=== PATIENT | male | born 1935 | race Caucasian/White ===

== ENCOUNTER 2016-12-16 22:43 | Inpatient (IN) | payer MEDICARE ==
[2016-12-16] MEDS ORDERED: SODIUM CHLORIDE 0.9% 1,000 ML IV STA (23:20)
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
[2016-12-16 23:48] LABS: Basophils % (A) 0 %; CH 30.3; CHCM 32.7; Eosinophils # (A) 0.3 k/uL (0-0.7); Eosinophils % (A) 4 %; HCT 40.7 % (39.0-53.0); HDW 2.35; HGB 13.2 gm/dL (13.0-17.5); Luc # (Auto) 0.17; Luc % (Auto) 2; Lymphocytes # (A) 2.3 k/uL (1.0-4.8); Lymphocytes % (A) 27 %; MCH 30.2 pg (25.0-35.0); MCHC 32.4 g/dL (31.0-37.0); MCV 93.2 fL (80.0-100.0); Mean Platelet Volume 6.6; Monocytes # (A) 0.6 k/uL (0-1.0); Monocytes % (A) 7 %; Neutrophils # (A) 5.4 k/uL (1.3-7.7); Neutrophils % (A) 61 %; RBC 4.37 m/uL (4.30-5.90); RDW 15.2 % (11.5-15.5); WBC 8.9 k/uL (3.8-10.6); WBC (Perox) 9.16
[2016-12-16 23:50] LABS: Amorphous Sediment,Urine Rare /hpf; Appearance,Urine Cloudy (Clear); Bacteria,Urine Occasional /hpf; Bilirubin,Urine Negative (Negative); Glucose,Urine (UA) Negative (Negative); Ketones,Urine Negative (Negative); Leukocyte Esterase,Urine Large (Negative); Nitrite,Urine Positive (Negative); PH, Urine 6.5 (5.0-8.0); Particle Count 9791; Protein,Urine Negative (Negative); RBC,Urine 2 /hpf (0-5); Specific Gravity,Urine 1.007 (1.001-1.035); Squamous Epithelial Cell,Urine <1 /hpf (0-4); UA Billing (MACRO vs. MICRO) MICRO; Urobilinogen,Urine <2.0 mg/dL (<2.0); WBC,Urine 7 /hpf (0-5)
[2016-12-16 23:56] LABS: INR 1.1 (<1.1); Partial Thromboplastin Time 25.3 sec (22.0-30.0); Prothrombin Time 10.8 sec (9.0-12.0)
[2016-12-17 00:02] LABS: ALT 30 U/L (21-72); AST 21 U/L (17-59); Alkaline Phosphatase 75 U/L (38-126); Anion Gap 9 mmol/L; Blood Urea Nitrogen 25 mg/dL (9-20); Calcium 9.8 mg/dL (8.4-10.2); Carbon Dioxide 24 mmol/L (22-30); Chloride 108 mmol/L (98-107); Glucose 94 mg/dL (74-99); Magnesium 2.1 mg/dL (1.6-2.3); Non-African American GFR(MDRD) >60 (>60 ml/min/1.73 sqM); Potassium 4.4 mmol/L (3.5-5.1); Sodium 141 mmol/L (137-145); Total Bilirubin 0.4 mg/dL (0.2-1.3); Total Protein 7.1 g/dL (6.3-8.2)
--- NOTE | 2016-12-17 00:12 | CT ---
EXAM: CT Head Without Intravenous Contrast CLINICAL HISTORY: Pain. Fall 2 days ago. TECHNIQUE: Axial computed tomography images of the head/brain without intravenous contrast. Coronal and sagittal reformations provided. DOSE INFORMATION: CTDI is 60.30 mGy and DLP is 1144.70 mGy-cm. This CT exam was performed using one or more of the following dose reduction techniques: automated exposure control, adjustment of the mA and/or kV according to patient size, and/or use of iterative reconstruction technique. COMPARISON: No relevant prior studies available. FINDINGS: Brain: No acute intracranial hemorrhage or evidence of acute territorial infarct. Atrophy and chronic small vessel ischemic disease. Chronic left superior cerebellar infarct. No mass effect or midline shift. Ventricles: Unremarkable for age. No ventriculomegaly. Bones/joints: No skull fracture. Soft tissues: Unremarkable. Sinuses: Areas of mild mucosal thickening involving the ethmoid sinuses. No air-fluid levels in the visualized paranasal sinuses. Mastoid air cells: Unremarkable as visualized. No mastoid effusion. IMPRESSION: 1. No intracranial hemorrhage, skull fracture, or other acute intracranial abnormality. 2. Atrophy and chronic small vessel ischemic disease. 3. Chronic infarct in the left superior cerebellar hemisphere.
[2016-12-17 00:14] LABS: Creatine Kinase <20 U/L (55-170)
[2016-12-17 00:26] LABS: Creatine Kinase MB 0.8 ng/mL (0.0-2.4); Troponin I <0.012 ng/mL (0.000-0.034)
[2016-12-17] MEDS ORDERED: CLOTRIMAZOLE 1% CREAM 15 GM TUBE TOPICAL PRN (00:43)
[2016-12-17] MEDS ORDERED: FUROSEMIDE 40 MG TAB PO PRN (00:43)
[2016-12-17] MEDS ORDERED: BUTALB/APAP/CAFF 50-325-40MG TAB PO PRN (00:43)
[2016-12-17] MEDS ORDERED: SERTRALINE 100 MG TAB PO PRN (00:43)
[2016-12-17] MEDS ORDERED: SYMBICORT 160-4.5 MCG INHALER INHALATION PRN (00:43)
[2016-12-17] MEDS ORDERED: POTASSIUM CHLORIDE ER 10 MEQ TAB.ER.PRT PO PRN (00:43)
[2016-12-17] MEDS ORDERED: ALPRAZolam 0.5 MG TAB PO PRN (00:43)
[2016-12-17] MEDS ORDERED: IPRATROPIUM BROMIDE 0.06% NASAL SPRAY (15 ML) EA NOSTRIL PRN (00:43)
--- NOTE | 2016-12-17 00:47 | XR ---
EXAM: XR Chest, 2 Views CLINICAL HISTORY: Cough. TECHNIQUE: Frontal and lateral views of the chest. COMPARISON: CXR dated 10/13/2015. FINDINGS: Lungs: No evidence of focal consolidation. Pulmonary vascularity is within normal limits. No pulmonary edema. Suspect mild scarring or atelectasis at the lung bases. Pleural space: Blunting of left costophrenic angle may represent small pleural effusion. No pneumothorax. Heart: Cardiac silhouette size within normal limits. Mediastinum: Stable mediastinal contours. No mediastinal widening. Bones/joints: No acute fracture visualized. IMPRESSION: 1. No evidence of focal consolidation or pulmonary edema. 2. Mild blunting of the left costophrenic angle may represent small pleural effusion or mild pleural-parenchymal disease.
[2016-12-17 07:55] LABS: Hemoglobin A1C 6.1 % (4.2-6.1)
--- NOTE | 2016-12-17 08:25 | US ---
EXAMINATION TYPE: US carotid duplex BILAT DATE OF EXAM: 12/17/2016 7:56 AM COMPARISON: NONE CLINICAL HISTORY: Stenosis. EXAM MEASUREMENTS: RIGHT: Peak Systolic Velocity (PSV) cm/sec ----- Right CCA: 47.2 ----- Right ICA: 59.0 ----- Right ECA: 100.4 ICA/CCA ratio: 1.3 RIGHT: End Diastole cm/sec ----- Right CCA: 0.0 ----- Right ICA: 9.2 ----- Right ECA: 0.0 LEFT: Peak Systolic Velocity (PSV) cm/sec ----- Left CCA: 53.3 ----- Left ICA: 68.1 ----- Left ECA: 160.1 ICA/CCA ratio: 1.3 LEFT: End Diastole cm/sec ----- Left CCA: 10.0 ----- Left ICA: 12.5 ----- Left ECA: 0.0 VERTEBRALS (direction of flow): Right Vertebral: Antegrade Left Vertebral: Antegrade No significant velocity elevations, mild plaque. IMPRESSION: 1. Mild plaque formation with no significant hemodynamic stenosis.
[2016-12-17] MEDS: SODIUM CHLORIDE 0.9% 1,000 ML IV SCH ×2 (08:59→17:14)
[2016-12-17] MEDS: INSULIN LISPRO (humaLOG) 300 UNIT/3 ML VIAL SQ SCH ×4 (09:01→22:13)
[2016-12-17] MEDS: GLIMEPIRIDE 2 MG TAB PO SCH ×2 (09:44→17:12)
[2016-12-17] MEDS: GABAPENTIN 300 MG CAP PO SCH ×2 (09:44→22:14)
[2016-12-17] MEDS: DICYCLOMINE 10 MG CAP PO SCH ×2 (09:44→22:14)
[2016-12-17] MEDS: ATORVASTATIN 40 MG TAB PO SCH (09:44)
[2016-12-17] MEDS: PANTOPRAZOLE 40 MG TABLET PO SCH (09:44)
[2016-12-17] MEDS: LORATADINE 10 MG TAB PO SCH (09:45)
[2016-12-17] MEDS: metFORMIN 500 MG TAB PO SCH ×2 (09:45→17:12)
[2016-12-17] MEDS: TOPIRAMATE 25 MG TAB PO SCH (09:45)
[2016-12-17 14:40] VITALS: BMI 25.1
[2016-12-17] MEDS: MULTIVITAMINS, THERA 1 EACH TAB PO SCH (17:12)
[2016-12-17] MEDS: CALCIUM CARB-VIT D 500MG-200UN 1 EACH TAB PO SCH (17:12)
[2016-12-17 17:41] LABS: Glucose,Whole Blood 88 mg/dL (75-99)
[2016-12-17 21:00] LABS: Glucose,Whole Blood 84 mg/dL (75-99)
[2016-12-17] MEDS: FERROUS SULFATE 325 MG TAB PO SCH (22:14)
[2016-12-18] MEDS: SODIUM CHLORIDE 0.9% 1,000 ML IV SCH ×2 (01:15→16:18)
[2016-12-18] MEDS: ASPIRIN 325 MG TAB PO SCH ×2 (01:15→09:24)
[2016-12-18 06:22] LABS: Glucose,Whole Blood 71 mg/dL (75-99)
[2016-12-18] MEDS: INSULIN LISPRO (humaLOG) 300 UNIT/3 ML VIAL SQ SCH ×4 (06:44→22:24)
[2016-12-18 06:51] LABS: Cholesterol 144 mg/dL (<200); HDL Cholesterol 59 mg/dL (40-60); Triglycerides 86 mg/dL (<150)
[2016-12-18] MEDS: PANTOPRAZOLE 40 MG TABLET PO SCH (07:10)
--- NOTE | 2016-12-18 08:39 | CONS ---
DATE OF CONSULTATION: 12/17/2016 CHIEF COMPLAINT: Syncope. HISTORY OF PRESENT ILLNESS: Mr. Forrester is a pleasant 81-year-old male who is being evaluated today on 12/17/2016 by the neurology service per the request of Dr. Louis Pinto for a syncopal spell. The patient was brought into [facility] emergency room after he had a syncopal episode at home. The patient remembers starting to fall and then believes he lost consciousness. He does not recall having any lightheadedness or chest palpitations prior to the event. He states that he has been having headaches over the past several days that are different than his usual headaches. The patient does have history of migraines, but these current headaches are different in quality and milder in intensity. He has been taking [id number] medications with no improvement in the headaches. When the patient did pass out, no seizure-like activity was witnessed. He did not have any sphincter or bowel incontinence. He does report that he has been feeling more drowsy than usual. In the emergency room, a CT scan of the brain was done, which showed an old left superior cerebellar lobe stroke. The patient does take aspirin 81 mg daily at home. His carotid Doppler showed no hemodynamically significant stenosis. His CBC and cardiac enzymes were negative. His comprehensive metabolic profile was normal except for mildly elevated BUN at 25. His urinalysis showed 7 WBCs with large leukocyte esterase and positive nitrites. At the time of my evaluation, the patient is lying in his bed and appears to be in no acute distress. He denies any recurrence of any syncopal or presyncopal symptoms. He still complains of a headache and rates it at 5 out of 10 in intensity and the headache is mostly in the frontal region. PAST MEDICAL HISTORY: Migraine headaches, dyslipidemia, history of stroke, diabetes, hypertension, history of MRSA, prostate surgery, tonsillectomy, splenectomy, depression. SOCIAL HISTORY: The patient smokes cigarettes occasionally. He denies any alcohol or drug use. FAMILY HISTORY: Positive for cancer. HOME MEDICATIONS: Reviewed in the chart. ALLERGIES: No known drug allergies. REVIEW OF SYSTEMS: CONSTITUTIONAL: Positive for fatigue. EYES: Negative. ENT: Negative. CARDIOVASCULAR: Negative. RESPIRATORY: Negative. NEUROLOGICAL: As mentioned above. He denies any lateralizing numbness or weakness. GASTROINTESTINAL: Positive for occasional heartburn. GENITOURINARY: Negative. PSYCHIATRIC: Positive for history of depression. ENDOCRINE: Positive for diabetes. Dermatological: Negative. MUSCULOSKELETAL: Positive for occasional joint pain. PHYSICAL EXAM: Vital signs show a temperature of 97.6, pulse 64, respirations 16, blood pressure 128/67. GENERAL APPEARANCE: The patient is a well-developed, elderly male who appears to be in no acute distress. HEENT: Normocephalic, atraumatic, no facial asymmetry is seen. Neck is supple with no masses felt. CARDIOVASCULAR: Regular rate and rhythm. ABDOMEN: Nontender, nondistended. EXTREMITIES: No edema or clubbing. NEUROLOGICAL EXAM: The patient is alert, aware, and oriented x3. Speech and language are normal. Strength is full in all 4 extremities. Sensory exam was normal to light touch in all 4 extremities. [id number] testing showed no dysmetria. No pronator drift is seen. No facial asymmetry is noticed on cranial nerve testing. IMPRESSION: 1. Syncopal spell. 2. Headaches. 3. History of ischemic stroke, left cerebellum. 4. Recurrent dizziness. RECOMMENDATIONS: The patient does appear to have suffered a true syncopal episode with no seizure-like activity witnessed. His work-up thus far has not shown any significant abnormalities as his CT scan showed only. His old ischemic stroke involving the left cerebellum and his carotid Doppler showed no hemodynamically significant stenosis. Due to his continued headaches and recurrent dizziness, and given this new syncopal episode, I will order an MRI of the brain. An EEG has also been ordered. Continue antiplatelet therapy with aspirin. Continue IV hydration as tolerated. Cardiology has been consulted. I do recommend antibiotic therapy for his mild urinary tract infection. Continue neuro checks. I will continue to follow with you. Further recommendations to follow. Thank you, Dr. Pinto, for allowing me to participate in the care of your patient. If you have any questions, please feel free to contact me.
[2016-12-18] MEDS: GLIMEPIRIDE 2 MG TAB PO SCH ×2 (09:24→16:37)
[2016-12-18] MEDS: TOPIRAMATE 25 MG TAB PO SCH (09:24)
[2016-12-18] MEDS: metFORMIN 500 MG TAB PO SCH ×2 (09:24→16:37)
[2016-12-18] MEDS: DICYCLOMINE 10 MG CAP PO SCH ×2 (09:24→20:36)
[2016-12-18] MEDS: GABAPENTIN 300 MG CAP PO SCH ×2 (09:24→20:36)
[2016-12-18] MEDS: ATORVASTATIN 40 MG TAB PO SCH (09:24)
[2016-12-18] MEDS: LORATADINE 10 MG TAB PO SCH (09:24)
[2016-12-18 11:44] LABS: Glucose,Whole Blood 84 mg/dL (75-99)
[2016-12-18] MEDS: MULTIVITAMINS, THERA 1 EACH TAB PO SCH (12:25)
[2016-12-18] MEDS: CALCIUM CARB-VIT D 500MG-200UN 1 EACH TAB PO SCH (12:25)
[2016-12-18] MEDS: LEVOFLOXACIN 750MG-D5W PMX 750 MG in DEXTROSE/WATER 1 150ML.BAG IVPB SCH (12:25)
--- NOTE | 2016-12-18 14:26 | MR ---
EXAMINATION TYPE: MR brain wo con DATE OF EXAM: 12/18/2016 2:17 PM COMPARISON: CT 12/16/2016 HISTORY: headache, syncope, dizziness T1-weighted sagittal, T2, FLAIR, and diffusion axial, and T2 coronal coronal views of the brain are s ubmitted. There is no evidence of acute ischemia. The ventricles, basal cisterns, and sulci overlying the conv exities are consistent with the patient's age. There is no mass effect. Craniocervical junction maintained. Sella turcica has a normal appearance. No cerebellopontine angle mass. There is evidence of previous left cerebellar hemispheric infarct. Mild to moderate generalized degen erative change seen with confluent and numerous focal areas of abnormal signal within the white matte r scattered bilaterally. Hyperostosis frontalis interna noted. Changes of chronic sinusitis noted. Tiny areas of abnormal sign al within the [place] suggestive of remote tiny areas of infarction. IMPRESSION: 1. No acute intracranial process. 2. Degenerative and nonspecific white matter changes most typical remote microvascular ischemia.
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
--- NOTE | 2016-12-18 15:17 | P.PN ---
Subjective Principal diagnosis: Syncope Patient is an 81-year-old male, patient Dr. Pinot in the outpatient setting, with complex medical history significant for recent urinary tract infection in August 2006 treated with IV antibiotics, status post suprapubic catheter, atrial fibrillation, COPD, congestive heart failure, CVA, dementia, diabetes mellitus type 2, DVT, GERD, hyperlipidemia, hypertension, prostate cancer status radiation and chemotherapy, peripheral diabetic neuropathy, post suprapubic catheter, migraines, vertigo, diverticular disease, GI bleed, and anemia. Patient presented to the emergency department with complains of frontal headache for approximately 3 weeks described as aching and dizziness. Patient reports an episode of syncope without seizure activity a couple of days prior to admission with no prodromal warnings. Patient apparently saw his neurologist Dr. Quiroz, and had an MRI ordered later this month. Patient does report chronic tinnitus and recent diplopia. Daughter was worried about patient and brought him in to the emergency department. EKG on arrival without any ischemic changes. Chest x-ray with no acute cardiopulmonary process. CT of the brain with evidence of atrophy and chronic small vessel ischemic disease with chronic infarct in the left superior cerebellar hemisphere without any intracranial hemorrhage, skull fracture, or other acute intracranial abnormality. Carotid ultrasound with no significant hemodynamic stenosis. Urinalysis on arrival with evidence of leukocyte esterase and positive nitrates. Patient has been started on IV Levaquin with urine culture pending. Patient was admitted to the selective care unit with consult to Dr. Darby for neurology service. Patient has been evaluated by from neurology service and patient is currently awaiting MRI of the brain along with an EEG for continued headaches and recurrent dizziness and recent episode of syncope. Upon examination, the patient denies headache. Patient reports episode of mild dizziness when he got up to the bathroom and bending forward. Denies chills, fevers, nausea, vomiting, dysphagia, shortness of breath, chest pain, abdominal pain, leg swelling or leg pain. Labs reviewed and essentially unremarkable. Vital signs normal. Objective - Vital Signs Vital signs: Vital Signs Temp 97.5 F L 12/18/16 12:32 Pulse 85 12/18/16 12:32 Resp 16 12/18/16 12:32 BP 148/67 12/18/16 12:32 Pulse Ox 96 12/18/16 12:32 Intake & Output 12/17/16 12/18/16 12/18/16 18:59 06:59 18:59 Intake Total 480 880 Output Total 1000 500 950 Balance -520 -500 -70 Weight 77.111 kg 76.7 kg Intake: IV 640 Sodium Chloride 0.9% 1, 640 000 ml @ 80 mls/hr IV . [id number] [facility] Rx#:[id number] Oral 480 240 Output: Urine 1000 500 950 Other: Voiding Method Indwelling Catheter Indwelling Catheter Indwelling Catheter # Voids 0 # Bowel Movements 0 - Exam GENERAL: Pt awake and alert, well-appearing, well-nourished, and in no acute distress. HEAD: Atraumatic, normocephalic. EYES: Pupils equal, round, and reactive to light, extraocular movements intact, sclera anicteric, conjunctiva are normal. ENT: Moist mucous membranes. NECK:Normal range of motion, supple without lymphadenopathy or JVD. LUNGS: Breath sounds diminished to auscultation bilaterally. No wheezes, rales , or rhonchi. HEART: Heart S1, S2, no S3 or S4. Regular rate and rhythm. No murmurs, rubs or gallops. ABDOMEN: Soft, nontender, nondistended, normoactive bowel sounds. No guarding, no rebound. No masses or organomegaly appreciated. Suprapubic catheter present. EXTREMITIES: 2+ peripheral pulses. No edema. No calf tenderness. Decreased sensation to upper and lower extremities. NEUROLOGICAL: Pt oriented x 3. No focal deficits noted. Mild weakness to upper and lower extremities. PSYCH: Normal mood, normal affect. SKIN: Warm, dry, intact. Normal turgor. No rashes or lesions. - Labs CBC & Chem 7: 12/16/16 23:30 12/16/16 23:30 Labs: Abnormal Lab Results - Last 24 Hours (Table) 12/18/16 Range/Units 06:21 POC Glucose (mg/dL) 71 L (75-99) mg/dL Assessment and Plan Plan: Impression and plan: 1. Syncope. Continue cardiac monitoring. Maintain fall precautions. Await MRI and EEG results. Continue neuro checks. Continue antiplatelet therapy with aspirin. Continue to follow with neurology service. Will obtain orthostatics every shift. 2. Headache with history of migraines. Await MRI results. Continue Fioricet as needed. Continue Topamax 50 mg by mouth daily. Continue neuro checks. 3. History of ischemic stroke, left cerebellum. 4. Acute dizziness with history of vertigo and and tinnitus. Maintain fall precautions. 5. Urinary tract infection with history of suprapubic catheter after prostate surgery and recent treated urinary tract infection in August culture positive for E. coli ESBL. Start patient on IV Levaquin, obtain urine culture. 6. Dehydration. BUN to creatinine greater than 20. Continue IV fluids. 7. Paroxysmal atrial fibrillation. Patient currently not on any anti- coagulation in the outpatient setting secondary to history of GI bleed and severe epistaxis. 8. Diabetes mellitus type 2, controlled. Hemoglobin 6.1. Continue Amaryl 2 mg by mouth before meals twice a day. Continue Accu-Cheks before meals at bedtime with Humalog sliding scale. Continue metformin 500 mg by mouth twice a day. 9. Chronic systolic heart failure. Continue Lasix 40 mg by mouth daily when necessary. 10. COPD without exacerbation. Continue Pulmicort and nebulized updraft treatments. 11. Chronic peripheral neuropathy suspect secondary to diabetes mellitus. Continue Neurontin. 12. Dementia, mild. 13. Hyperlipidemia. Continue Lipitor. 14. History of DVT. 15. Hypertension. 16. History of prostate cancer status post prostatectomy with surgery and radiation. 17. History of splenectomy. 18. History of GI bleed and not on any anticoagulation. 19. Restless leg syndrome. Continue Requip 1 mg by mouth twice a day. 20. Anxiety and depression, mild. Continue Zoloft and Xanax. 21. GERD. Continue Protonix. 22. History of nicotine dependence. Monitor patient. Home medications been reviewed and resumed as appropriate. Continue to follow with neurology and await results of MRI and EEG. Possible discharge home in next 24 hours pending patient's clinical status. The above impression and plan have been discussed and directed by Dr. Pinto. Claire POWER acting as scribe for Dr. Pinto.
[2016-12-18 17:09] LABS: Glucose,Whole Blood 63 mg/dL (75-99)
[2016-12-18 17:34] LABS: Glucose,Whole Blood 97 mg/dL (75-99)
[2016-12-18] MEDS: FERROUS SULFATE 325 MG TAB PO SCH (20:36)
--- NOTE | 2016-12-18 21:07 | PN ---
CHIEF COMPLAINT: Syncope. HISTORY OF PRESENT ILLNESS: This is a pleasant 81-year-old male continuing to be evaluated by the neurology service for a syncopal spell. He was brought to [facility] Emergency Room after this episode happened in his home. He says his loss of consciousness was very brief. He remembers falling and he remembers being awake and alert by the time he hit the floor. He had some lightheadedness which is similar to that he has had for quite some time while bending over and standing up. He had been having a mild to moderate headache over the past several days that was a little different than his usual headaches. He has a history of migraines. There was no seizure-like activity witnessed. No bladder or bowel incontinence. A CT scan initially done in the ER showed an old left superior cerebellar stroke. His carotid Doppler showed no hemodynamically significant stenosis. A subsequent MRI confirmed the old left right-sided cerebellar stroke which no new acute ischemic changes. It did show small-vessel ischemic changes. An EEG has been performed. He has had no further complaints since his admission. PHYSICAL EXAM: Vital signs show temperature 97.6, pulse 64, respirations 16, blood pressure 120/67. GENERAL: Well-developed elderly male in no acute distress. HEENT: Normocephalic, atraumatic. There is no facial asymmetry. NECK: Supple without masses. CARDIOVASCULAR: Rate and rhythm are regular. ABDOMEN: Nontender, nondistended. Extremities show no clubbing, edema or cyanosis. NEUROLOGICAL EXAM: He is alert, awake and oriented x3. Speech and language are normal. There is full strength in all 4 extremities. There is no sensory deficit in any extremity or in the face. There is no dysmetria. He does have mildly slow tracking of the left eye that he and his confirm has been present for many years. He denies any vision changes. IMPRESSION: 1. Syncopal spell. 2. Headaches. 3. History of ischemic stroke. 4. History of recurrent dizziness. RECOMMENDATIONS: His syncopal episode is not likely due to any significant neurological process. We will review his EEG. Otherwise, continue the rest of your workup to include cardiology consultation. Barring any unforeseen abnormalities on his EEG, he would be cleared from a neurological standpoint. I performed a history and physical examination of this patient and discussed the same with the dictator. I agree with the dictator's note. Any additional findings/opinions, etc. will be noted. MTDD
[2016-12-18 21:16] LABS: Glucose,Whole Blood 138 mg/dL (75-99)
[2016-12-19] MEDS: INSULIN LISPRO (humaLOG) 300 UNIT/3 ML VIAL SQ SCH ×2 (06:34→11:58)
[2016-12-19 06:41] VITALS: RESP 18
[2016-12-19 07:20] LABS: Glucose,Whole Blood 73 mg/dL (75-99)
[2016-12-19] MEDS: GLIMEPIRIDE 2 MG TAB PO SCH (07:22)
[2016-12-19] MEDS: metFORMIN 500 MG TAB PO SCH (07:22)
[2016-12-19] MEDS: PANTOPRAZOLE 40 MG TABLET PO SCH (07:22)
[2016-12-19] MEDS: DICYCLOMINE 10 MG CAP PO SCH (09:32)
[2016-12-19] MEDS: GABAPENTIN 300 MG CAP PO SCH (09:32)
[2016-12-19] MEDS: ATORVASTATIN 40 MG TAB PO SCH (09:32)
[2016-12-19] MEDS: LEVOFLOXACIN 750MG-D5W PMX 750 MG in DEXTROSE/WATER 1 150ML.BAG IVPB SCH (09:32)
[2016-12-19] MEDS: LORATADINE 10 MG TAB PO SCH (09:32)
[2016-12-19] MEDS: ASPIRIN 325 MG TAB PO SCH (09:32)
[2016-12-19] MEDS: TOPIRAMATE 25 MG TAB PO SCH (09:32)
[2016-12-19] MEDS: SODIUM CHLORIDE 0.9% 1,000 ML IV SCH (09:32)
--- NOTE | 2016-12-19 11:32 | EEG ---
DATE OF SERVICE: 12/18/2016 INDICATIONS FOR EXAMINATION: Syncope. AGE: 81Y DESCRIPTION OF THE PROCEDURE: This EEG was performed using a 21-channel digital electroencephalograph, following the international 10 to 20 system. DESCRIPTION OF THE RECORDING: From the beginning of the tracing, and with the patient's eyes closed, the background rhythm was mostly consisting of 8 Hz alpha frequency in the posterior occipital leads. No obvious asymmetry is seen. Frequent muscle artifacts are noticed. Photic stimulation was performed with a minimal driving response seen. No pathological waves were elicited. Hyperventilation was not performed. The patient remains awake throughout the tracing. No epileptiform discharges were seen. His EKG lead showed a regular rate and rhythm. INTERPRETATION: This awake EEG can be considered within normal limits. There was no asymmetry seen. No epileptiform discharges were noticed. The absence of epileptiform discharges does not rule out the diagnosis of epilepsy, therefore, clinical correlation is recommended.
[2016-12-19 11:53] VITALS: BP 148/68; PULSE 69; TEMP 97
[2016-12-19] MEDS: CALCIUM CARB-VIT D 500MG-200UN 1 EACH TAB PO SCH (12:00)
[2016-12-19] MEDS: MULTIVITAMINS, THERA 1 EACH TAB PO SCH (12:00)
[2016-12-19 12:20] LABS: Glucose,Whole Blood 54 mg/dL (75-99)
[2016-12-19 12:40] LABS: Glucose,Whole Blood 81 mg/dL (75-99)
--- NOTE | 2016-12-23 15:15 | DS ---
DATE OF ADMISSION: 12/17/2016 DATE OF DISCHARGE: 12/19/2016 DISCHARGE DIAGNOSES: 1. Syncope, most likely secondary to orthostatic hypotension, mild dehydration and possible hypoglycemia which is multifactorial and stroke workup has been negative, including CT of the head, carotid duplex as well as electroencephalogram, cleared by Neurology. 2. Migraine headache with history of migraine headaches. Continue with Topamax and Fioricet p.r.n. 3. 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 4. History of vertigo previously due to cerebrovascular accident, improved now. 5. Complicated urinary tract infection suspected. Continue with the antibiotics. Culture is not available at this time. 6. History of Escherichia coli extended-spectrum beta-lactamase in August 2016, currently on suprapubic catheter since then. Follows with Dr. Pérez as an outpatient. 7. Paroxysmal atrial fibrillation. Heart rate is controlled. Currently not on anticoagulation due to previous gastrointestinal bleed. 8. Chronic systolic heart failure. Ejection fraction within normal limits as per previous echocardiogram in 2013. 9. Diabetes type 2. HbA1c 6.1 with hypoglycemic episodes. Continue with the metformin and will hold glimepiride at this time and follow with his primary care physician. 10. Chronic obstructive pulmonary disease without exacerbation. Continued on breathing treatments. 11. Peripheral neuropathy, diabetic. 12. Mild dementia. 13. Hyperlipidemia. 14. History of deep venous thrombosis. 15. Hypertension. 16. History of prostate cancer, status post prostatectomy with surgery and radiation. 17. History of splenectomy. 18. History of GI bleed, not on anticoagulation due to that for atrial fibrillation. 19. Restless leg syndrome. 20. Anxiety and depression. 21. Gastroesophageal reflux disease. 22. History of nicotine dependence. 23. Deep venous thrombosis prophylaxis while in the hospital. HOSPITAL COURSE: Mr. Forrester is an 81-year-old male with significant past medical history of multiple medical problems as discussed above, came to the hospital after having a syncopal episode. Patient apparently was trying to get up from the chair and was trying to go to his bed. Suddenly he felt dizzy and fell down and blacked out. His syncopal episode is most likely secondary to orthostatic hypotension and mild dehydration, as there is possibly infection suspected with the patient being on begun suprapubic catheter. Patient was continued on IV fluids in the hospital and EKG showed normal sinus rhythm. Stroke workup, including MRI, CT head and carotid Dopplers have been negative. Neurology has signed off at this time. Patient does not have any similar episodes while in the hospital. The patient is having hypoglycemic episodes. Blood sugar around 50 to 70 during hospital stay and glimepiride has been held at this time. Continued with the metformin. HbA1c is 6.1. Otherwise, patient will be continued on antibiotics and culture report is not back yet. Patient was advised to follow with Dr. Pinto next week and follow with the culture report and follow with Cardiology as well due to history of previous paroxysmal atrial fibrillation. Otherwise, the patient will be continued on current home medications and is stable for discharge now. I did discuss with his family at bedside in detail and patient advised to follow with Dr. Pinto in 1 to 3 days. DISCHARGE PHYSICAL EXAMINATION: An 81-year-old male lying in the bed; awake, alert, oriented x3, appears to be in no apparent distress. VITALS: Blood pressure is 148/68, pulse is 69, respirations 18, temperature afebrile, pulse ox 93% on room air. HEENT: Atraumatic, normocephalic. NECK: Supple. No JVD. CVS: S1, S2 heard. No murmur. No gallop. LUNGS: Bilateral air entry is present. No wheezing. No crackles. [employer]: Alert and oriented x3 extremity and. ABDOMEN: Soft, nontender. Bowel sounds present. Patient does have suprapubic catheter and has leg bag. EXTREMITIES. No edema. Pulses palpable bilaterally. No clubbing or cyanosis. PSYCHIATRIC: Cooperative. LABORATORY DATA: Reviewed. Urine culture is in process. Discharge medications include: 1. Lipitor 40 mg p.o. daily. 2. Symbicort 2 puffs b.i.d. 3. Bentyl 10 mg p.o. b.i.d. 4. Neurontin 300 mg p.o. b.i.d. 5. Lansoprazole 30 mg p.o. daily. 6. Klor-Con 8 mEq p.o. daily. 7. Topamax 50 mg p.o. q.a.m. 8. Metformin 500 mg p.o. b.i.d. 9. Ropinirole 1 mg p.o. b.i.d. 10. Aspirin 81 mg p.o. daily. 11. Lasix 40 mg p.o. daily and 12. Xanax 0.5 mg p.o. daily. 13. Fioricet 1 tablet p.o. daily p.r.n. headache. 14. Calcium plus vitamin D3, 1 tablet p.o. daily. 15. Cetirizine 10 mg p.o. daily p.r.n. for allergies. 16. Clotrimazole 1 application topically daily p.r.n. 17. Atrovent nasal spray each nostril daily p.r.n. 18. Iron 27 mg 1 tablet p.o. at bedtime. 19. Multivitamins 1 tablet p.o. daily. 20. Zoloft 100 mg p.o. daily. 21. Levofloxacin 5 mg daily for 4 days for a total of 7 days. Patient will be discharged home with home health care services and activity as tolerated. Heart-healthy and diabetic diet. Follow up with Dr. Louis Pinto in 1 to 2 days.
== END 2016-12-19 14:29 | disposition home health service (06) | DRG 312 ==
LOC: EC 22:43 → 6SEL 12-17 00:41
PROVIDERS: ADMIT Family Medicine; ATTEND Family Medicine
DX: I95.1 Orthostatic hypotension (principal); I50.22 Chronic systolic (congestive) heart failure; I11.0 Hypertensive heart disease with heart failure; F03.90 Unspecified dementia, unspecified severity, without behavioral disturbance, psychotic disturbance, mood disturbance, and anxiety; E11.42 Type 2 diabetes mellitus with diabetic polyneuropathy; I48.0 Paroxysmal atrial fibrillation; E11.649 Type 2 diabetes mellitus with hypoglycemia without coma; R55 Syncope and collapse; F32.9 Major depressive disorder, single episode, unspecified; E86.0 Dehydration; J44.9 Chronic obstructive pulmonary disease, unspecified; G43.909 Migraine, unspecified, not intractable, without status migrainosus; E78.5 Hyperlipidemia, unspecified; R51 Headache; F41.9 Anxiety disorder, unspecified; R42 Dizziness and giddiness; F17.210 Nicotine dependence, cigarettes, uncomplicated; G25.81 Restless legs syndrome; G47.33 Obstructive sleep apnea (adult) (pediatric); H53.2 Diplopia; H93.19 Tinnitus, unspecified ear; K21.9 Gastro-esophageal reflux disease without esophagitis; K57.90 Diverticulosis of intestine, part unspecified, without perforation or abscess without bleeding; Z79.82 Long term (current) use of aspirin; Z79.84 Long term (current) use of oral hypoglycemic drugs; Z79.899 Other long term (current) drug therapy; Z85.46 Personal history of malignant neoplasm of prostate; Z86.14 Personal history of Methicillin resistant Staphylococcus aureus infection
CPT/HCPCS: 36415; 70450; 70551; 71020; 80053; 80061; 81001; 82550; 82553; 83036; 83735; 84484; 85025; 85610; 85730; 87077; 87086; 87186; 93005; 93880; 94640; 95819; 99285

== ENCOUNTER 2017-09-23 21:54 | Emergency (ER) | payer MEDICARE ==
[2017-09-23 22:00] VITALS: TEMP 97.1
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
[2017-09-23 22:22] LABS: Basophils % (A) 0 %; Eosinophils # (A) 0.4 k/uL (0-0.7); Eosinophils % (A) 6 %; HCT 41.6 % (39.0-53.0); HGB 12.8 gm/dL (13.0-17.5); Hypochromasia Slight; Lymphocytes # (A) 2.2 k/uL (1.0-4.8); Lymphocytes % (A) 32 %; MCH 29.9 pg (25.0-35.0); MCHC 30.7 g/dL (31.0-37.0); MCV 97.4 fL (80.0-100.0); Mean Platelet Volume 7.3; Monocytes # (A) 0.4 k/uL (0-1.0); Monocytes % (A) 6 %; Neutrophils # (A) 3.8 k/uL (1.3-7.7); Neutrophils % (A) 54 %; Platelet Count 123 k/uL (150-450); RBC 4.27 m/uL (4.30-5.90); RDW 13.9 % (11.5-15.5)
[2017-09-23 22:33] LABS: Anion Gap 14 mmol/L; Blood Urea Nitrogen 21 mg/dL (9-20); Calcium 10.3 mg/dL (8.4-10.2); Carbon Dioxide 23 mmol/L (22-30); Chloride 107 mmol/L (98-107); Glucose 104 mg/dL (74-99); Potassium 4.3 mmol/L (3.5-5.1); Sodium 144 mmol/L (137-145)
[2017-09-23 22:50] VITALS: BP 168/70; PULSE 73; RESP 18
== END 2017-09-23 23:03 | disposition home or self-care (01) ==
LOC: EC 21:54
DX: T58.91XA Toxic effect of carbon monoxide from unspecified source, accidental (unintentional), initial encounter (principal); E78.5 Hyperlipidemia, unspecified; I11.0 Hypertensive heart disease with heart failure; I50.9 Heart failure, unspecified; J44.9 Chronic obstructive pulmonary disease, unspecified; E11.40 Type 2 diabetes mellitus with diabetic neuropathy, unspecified; K21.9 Gastro-esophageal reflux disease without esophagitis; F32.9 Major depressive disorder, single episode, unspecified; F17.299 Nicotine dependence, other tobacco product, with unspecified nicotine-induced disorders; Z79.51 Long term (current) use of inhaled steroids; Z79.82 Long term (current) use of aspirin; Z79.84 Long term (current) use of oral hypoglycemic drugs; Z79.899 Other long term (current) drug therapy; Z91.09 Other allergy status, other than to drugs and biological substances; Z92.3 Personal history of irradiation; Z86.69 Personal history of other diseases of the nervous system and sense organs; Z85.46 Personal history of malignant neoplasm of prostate; Z98.890 Other specified postprocedural states
CPT/HCPCS: 36415; 80048; 82375; 85025; 93005; 99284

== ENCOUNTER → 2018-08-10 | Outpatient (CLI) | payer MEDICARE ==
[2018-08-11 02:57] LABS: Albumin 4.4 g/dL (3.80-4.90); Anion Gap 9.2 mmol/L (4.00-12.00); Calcium 9.8 mg/dL (8.7-10.3); Carbon Dioxide 22.8 mmol/L (21.6-31.8); Globulin 2.2 g/dL (1.6-3.3); Potassium 4.7 mmol/L (3.5-5.5); Total Bilirubin 0.3 mg/dL (0.2-1.2); Total Protein 6.6 g/dL (6.2-8.2)
== END | disposition home or self-care (01) ==
LOC: LABWHC1 15:08
PROVIDERS: ATTEND Nurse Practitioner Acute Care
DX: Z51.81 Encounter for therapeutic drug level monitoring (principal); R53.83 Other fatigue
CPT/HCPCS: 36415; 80053; 82607; 84439; 84443; 84481

== ENCOUNTER → 2018-08-16 | Outpatient (CLI) | payer MEDICARE ==
--- NOTE | 2018-08-16 14:44 | CT ---
EXAMINATION TYPE: CT brain wo con DATE OF EXAM: 08/16/2018 COMPARISON: 12/16/2016 INDICATION: Prostate cancer and abnormal MRI DLP: 1108.40 mGycm, Automated exposure control for dose reduction was used. CONTRAST: None CT of the brain is performed utilizing 3 mm thick sections through the posterior fossa and 3 mm thick sections through the remaining calvarium. Study is performed within 24 hours of arrival to the hosp [place]. No abnormal hyperdensity is present to suggest an acute intracranial hemorrhage. No mass lesion is evident. There is some hypodensity through the right basal ganglion could be old in farct or old hemorrhage. Acute hemorrhage in the right basal ganglion is not evident. Right Basal israel glion change is a interval change from 2017. No acute infarcts are evident. There is an old infarct within the left cerebellum. Extra-axial spaces posterior fossa are prominent. Periventricular white matter hypodensity is present compatible with a therosclerotic changes Ventricles and sulci are prominent for the patient age. Paranasal sinuses and mastoid air cells within the [id number] are clear. Hyperostosis frontalis in ternus is present, normal variant. IMPRESSIONS: 1. Atrophy and chronic appearing periventricular white matter ischemic changes. 2. Slight hypodensity within the right basal ganglion could be some subacute hemorrhage. No acute hem orrhage is evident. Interval right basal ganglion lacunar infarct should be suspected.
== END | disposition home or self-care (01) ==
LOC: RADXRMAIN 13:51
PROVIDERS: ATTEND Psychiatry & Neurology Neurology
DX: G31.9 Degenerative disease of nervous system, unspecified (principal); R90.89 Other abnormal findings on diagnostic imaging of central nervous system; Z80.42 Family history of malignant neoplasm of prostate
CPT/HCPCS: 70450

== ENCOUNTER → 2018-08-25 | Outpatient (CLI) | payer MEDICARE ==
--- NOTE | 2018-08-25 16:24 | NM ---
EXAMINATION TYPE: NM bone scan whole body DATE OF EXAM: 08/25/2018 COMPARISON: Not available HISTORY: Abnormal imaging, prostate carcinoma Delayed whole-body scanning was performed following the injection of 23.6 mCi Tc 99m MDP. Images acq uired 3 hours post injection. FINDINGS: Patient shows an indwelling suprapubic tube, urine contamination is suspected over the soft tissues o f the pelvis.. No abnormal uptake seen within the vertebral bodies. Degenerative changes are noted wi thin the wrists, shoulders, knees. Soft tissue uptake is otherwise normal. IMPRESSION: Metastatic disease is not evident.
== END | disposition home or self-care (01) ==
LOC: RADXRMAIN 11:10
PROVIDERS: ATTEND Psychiatry & Neurology Neurology
DX: Z08 Encounter for follow-up examination after completed treatment for malignant neoplasm (principal); G93.9 Disorder of brain, unspecified; M89.9 Disorder of bone, unspecified; Z85.46 Personal history of malignant neoplasm of prostate
CPT/HCPCS: 78306; A9503

== ENCOUNTER 2018-09-20 12:52 | Emergency (ER) | payer MEDICARE ==
[2018-09-20 13:18] VITALS: RESP 18
[2018-09-20] MEDS ORDERED: IPRATROPIUM-ALBUTEROL 3 ML NEB INHALATION STA (13:42)
[2018-09-20] MEDS ORDERED: SODIUM CHLORIDE 0.9% 1,000 ML IV STA (13:42)
[2018-09-20 14:01] LABS: Basophils % (A) 0 %; Eosinophils # (A) 0.4 k/uL (0-0.7); Eosinophils % (A) 6 %; HCT 41.7 % (39.0-53.0); HGB 13.6 gm/dL (13.0-17.5); Lymphocytes # (A) 1.4 k/uL (1.0-4.8); Lymphocytes % (A) 18 %; MCH 30.3 pg (25.0-35.0); MCHC 32.5 g/dL (31.0-37.0); MCV 93.1 fL (80.0-100.0); Mean Platelet Volume 6.7; Monocytes # (A) 0.4 k/uL (0-1.0); Monocytes % (A) 6 %; Neutrophils # (A) 5.4 k/uL (1.3-7.7); Neutrophils % (A) 70 %; Platelet Count 278 k/uL (150-450); RBC 4.48 m/uL (4.30-5.90); RDW 14.1 % (11.5-15.5); WBC 7.7 k/uL (3.8-10.6)
[2018-09-20 14:09] LABS: INR 0.9 (<1.2); Partial Thromboplastin Time 24.2 sec (22.0-30.0); Prothrombin Time 10.1 sec (9.0-12.0)
[2018-09-20 14:11] LABS: ALT 42 U/L (21-72); AST 37 U/L (17-59); Albumin 3.7 g/dL (3.5-5.0); Alkaline Phosphatase 75 U/L (38-126); Anion Gap 8 mmol/L; Blood Urea Nitrogen 14 mg/dL (9-20); Calcium 9.8 mg/dL (8.4-10.2); Carbon Dioxide 23 mmol/L (22-30); Chloride 112 mmol/L (98-107); Glucose 99 mg/dL (74-99); Potassium 4.2 mmol/L (3.5-5.1); Sodium 143 mmol/L (137-145); Total Bilirubin 0.6 mg/dL (0.2-1.3); Total Protein 6.8 g/dL (6.3-8.2)
[2018-09-20 14:26] LABS: Creatine Kinase 44 U/L (55-170)
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
[2018-09-20 14:40] LABS: Creatine Kinase MB 2.3 ng/mL (0.0-2.4); Troponin I <0.012 ng/mL (0.000-0.034)
--- NOTE | 2018-09-20 14:41 | XR ---
EXAMINATION TYPE: XR chest 2V DATE OF EXAM: 09/20/2018 COMPARISON: Chest x-ray December 16, 2016 HISTORY: History of COPD with cough. TECHNIQUE: Frontal and lateral views of the chest are obtained. FINDINGS: Underlying emphysematous changes redemonstrated. There is no focal air space opacity, pleur al effusion, or pneumothorax seen. The cardiac silhouette size remains within normal limits with ath erosclerotic change in thoracic aorta. The osseous structures are demineralized. IMPRESSION: Chronic emphysematous change without acute pulmonary process.
[2018-09-20 16:37] VITALS: BP 132/63; PULSE 66; TEMP 97.8
== END 2018-09-20 16:46 | disposition home or self-care (01) ==
LOC: EC 12:52
DX: J20.9 Acute bronchitis, unspecified (principal); J44.9 Chronic obstructive pulmonary disease, unspecified; R11.2 Nausea with vomiting, unspecified; R42 Dizziness and giddiness; I48.91 Unspecified atrial fibrillation; I11.0 Hypertensive heart disease with heart failure; I50.9 Heart failure, unspecified; E11.40 Type 2 diabetes mellitus with diabetic neuropathy, unspecified; K21.9 Gastro-esophageal reflux disease without esophagitis; E78.5 Hyperlipidemia, unspecified; I10 Essential (primary) hypertension; F03.90 Unspecified dementia, unspecified severity, without behavioral disturbance, psychotic disturbance, mood disturbance, and anxiety; F32.9 Major depressive disorder, single episode, unspecified; G43.909 Migraine, unspecified, not intractable, without status migrainosus; Z86.718 Personal history of other venous thrombosis and embolism; Z86.14 Personal history of Methicillin resistant Staphylococcus aureus infection; Z85.46 Personal history of malignant neoplasm of prostate; Z79.51 Long term (current) use of inhaled steroids; Z79.84 Long term (current) use of oral hypoglycemic drugs; Z79.890 Hormone replacement therapy; Z79.82 Long term (current) use of aspirin; Z79.899 Other long term (current) drug therapy; Z91.048 Other nonmedicinal substance allergy status; Z86.73 Personal history of transient ischemic attack (TIA), and cerebral infarction without residual deficits
CPT/HCPCS: 36415; 71046; 80053; 82550; 82553; 83880; 84484; 85025; 85610; 85730; 93005; 94640; 96360; 96361; 99284

== ENCOUNTER 2018-12-11 17:20 | Inpatient (IN) | payer MEDICARE ==
[2018-12-11] MEDS ORDERED: methylPREDNISolone SOD SUCCI 125 MG/2 ML VIAL IV STA (17:45)
[2018-12-11] MEDS ORDERED: IPRATROPIUM-ALBUTEROL 3 ML NEB INHALATION STA (17:45)
[2018-12-11] MEDS ORDERED: LEVOFLOXACIN 750MG-D5W PMX 750 MG in DEXTROSE/WATER 1 150ML.BAG IVPB STA (17:45)
[2018-12-11] MEDS ORDERED: FUROSEMIDE 10 MG/ML 4 ML VIAL IV STA (17:45)
[2018-12-11] MEDS ORDERED: SODIUM CHLORIDE 0.9% 1,000 ML IV STA ×2 (17:45)
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
[2018-12-11 18:17] LABS: Basophils % (A) 0 %; Eosinophils # (A) 0.2 k/uL (0-0.7); Eosinophils % (A) 1 %; HCT 44.4 % (39.0-53.0); HGB 14.1 gm/dL (13.0-17.5); Lymphocytes # (A) 1.1 k/uL (1.0-4.8); Lymphocytes % (A) 8 %; MCH 29.4 pg (25.0-35.0); MCHC 31.7 g/dL (31.0-37.0); MCV 92.6 fL (80.0-100.0); Mean Platelet Volume 6.7; Monocytes # (A) 0.7 k/uL (0-1.0); Monocytes % (A) 5 %; Neutrophils # (A) 10.8 k/uL (1.3-7.7); Neutrophils % (A) 84 %; Platelet Count 351 k/uL (150-450); RBC 4.79 m/uL (4.30-5.90); RDW 14.1 % (11.5-15.5); WBC 12.8 k/uL (3.8-10.6)
[2018-12-11 18:28] LABS: ALT 47 U/L (21-72); AST 38 U/L (17-59); Albumin 4.2 g/dL (3.5-5.0); Alkaline Phosphatase 84 U/L (38-126); Anion Gap 12 mmol/L; Blood Urea Nitrogen 16 mg/dL (9-20); Carbon Dioxide 22 mmol/L (22-30); Chloride 109 mmol/L (98-107); Glucose 175 mg/dL (74-99); Partial Thromboplastin Time 22.9 sec (22.0-30.0); Prothrombin Time 10.5 sec (9.0-12.0); Sodium 143 mmol/L (137-145); Total Protein 7.7 g/dL (6.3-8.2)
[2018-12-11 18:31] LABS: Potassium 4.6 mmol/L (3.5-5.1)
--- NOTE | 2018-12-11 19:35 | XR ---
EXAMINATION TYPE: XR chest 2V DATE OF EXAM: 12/11/2018 COMPARISON: 09/20/2018 HISTORY: COPD short of breath TECHNIQUE: Frontal and lateral views of the chest are obtained. FINDINGS: There is no heart failure nor confluent pneumonic infiltrate. Costophrenic angles are eb r. Heart size is normal. Thoracic aorta is atheromatous. There are chest leads. There is osteopenia. IMPRESSION: No active cardiopulmonary disease. Normal heart. Atheromatous aorta. There is clearing o f small pleural effusions compared to old exam.
[2018-12-11] MEDS ORDERED: IPRATROPIUM-ALBUTEROL 3 ML NEB INHALATION PRN (20:04)
[2018-12-11 23:28] LABS: Glucose,Whole Blood 218 mg/dL (75-99)
[2018-12-11] MEDS: BENZONATATE 100 MG CAP PO SCH (23:32)
[2018-12-11] MEDS: GABAPENTIN 300 MG CAP PO SCH (23:33)
[2018-12-11] MEDS: guaiFENesin 600 MG TABLET.ER PO SCH (23:33)
[2018-12-11] MEDS: metFORMIN 500 MG TAB PO SCH (23:33)
[2018-12-11] MEDS: ATORVASTATIN 40 MG TAB PO SCH (23:33)
[2018-12-11] MEDS: DICYCLOMINE 10 MG CAP PO SCH (23:34)
[2018-12-11] MEDS: FUROSEMIDE 20 MG TAB PO SCH (23:34)
[2018-12-11] MEDS: GLIMEPIRIDE 2 MG TAB PO SCH (23:35)
[2018-12-11] MEDS: INSULIN ASPART (NovoLOG) 100 UNIT/ML VIAL SQ SCH (23:54)
[2018-12-12] MEDS: methylPREDNISolone SOD SUCCI 125 MG/2 ML VIAL IV SCH ×4 (00:13→17:39)
[2018-12-12] MEDS: LEVOTHYROXINE 25 MCG TAB PO SCH (05:33)
[2018-12-12] MEDS: BUDESONIDE 0.5 MG/2 ML NEBU INHALATION SCH ×2 (07:10→18:59)
[2018-12-12 07:21] LABS: Glucose,Whole Blood 212 mg/dL (75-99)
[2018-12-12] MEDS: FUROSEMIDE 20 MG TAB PO SCH ×2 (07:47→17:38)
[2018-12-12] MEDS: guaiFENesin 600 MG TABLET.ER PO SCH ×2 (07:47→22:28)
[2018-12-12] MEDS: MULTIVITAMINS, THERA 1 EACH TAB PO SCH (07:47)
[2018-12-12] MEDS: POTASSIUM CHLORIDE ER 10 MEQ TAB.ER.PRT PO SCH (07:47)
[2018-12-12] MEDS: PANTOPRAZOLE 40 MG TABLET PO SCH (07:47)
[2018-12-12] MEDS: DICYCLOMINE 10 MG CAP PO SCH ×2 (07:47→22:27)
[2018-12-12] MEDS: TOPIRAMATE 100 MG TAB PO SCH (07:47)
[2018-12-12] MEDS: BENZONATATE 100 MG CAP PO SCH ×3 (07:47→22:29)
[2018-12-12] MEDS: GABAPENTIN 300 MG CAP PO SCH ×2 (07:48→22:28)
[2018-12-12] MEDS: INSULIN ASPART (NovoLOG) 100 UNIT/ML VIAL SQ SCH ×5 (07:48→22:26)
[2018-12-12] MEDS: metFORMIN 500 MG TAB PO SCH ×2 (07:48→22:28)
[2018-12-12] MEDS: GLIMEPIRIDE 2 MG TAB PO SCH ×2 (07:48→17:38)
[2018-12-12] MEDS: SERTRALINE 100 MG TAB PO SCH (07:48)
[2018-12-12] MEDS: LORATADINE 10 MG TAB PO SCH (07:48)
[2018-12-12] MEDS ORDERED: SYMBICORT 160-4.5 MCG INHALER INHALATION SCH (08:00)
[2018-12-12 11:12] VITALS: BMI 22.6
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
[2018-12-12 12:14] LABS: Glucose,Whole Blood 224 mg/dL (75-99)
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
[2018-12-12 16:41] LABS: Glucose,Whole Blood 92 mg/dL (75-99)
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
[2018-12-12] MEDS: IPRATROPIUM-ALBUTEROL 3 ML NEB INHALATION SCH (18:59)
[2018-12-12] MEDS: FORMOTEROL FUMARATE 20 MCG/2 ML NEBU INHALATION SCH (18:59)
[2018-12-12 20:53] LABS: Glucose,Whole Blood 125 mg/dL (75-99)
[2018-12-12] MEDS ORDERED: INSULIN DETEMIR (LEVEMIR) 100 UNIT/ML SYR SQ SCH (21:00)
[2018-12-12] MEDS: MONTELUKAST 10 MG TAB PO SCH (22:27)
[2018-12-12] MEDS: LEVOFLOXACIN 500 MG TAB PO SCH (22:28)
[2018-12-12] MEDS: ATORVASTATIN 40 MG TAB PO SCH (22:28)
[2018-12-13] MEDS: methylPREDNISolone SOD SUCCI 125 MG/2 ML VIAL IV SCH ×3 (00:12→13:13)
[2018-12-13] MEDS: LEVOTHYROXINE 25 MCG TAB PO SCH (06:21)
[2018-12-13 07:11] LABS: Glucose,Whole Blood 160 mg/dL (75-99)
[2018-12-13] MEDS: IPRATROPIUM-ALBUTEROL 3 ML NEB INHALATION SCH ×3 (07:42→19:31)
[2018-12-13] MEDS: FORMOTEROL FUMARATE 20 MCG/2 ML NEBU INHALATION SCH ×2 (07:42→19:31)
[2018-12-13] MEDS: BUDESONIDE 0.5 MG/2 ML NEBU INHALATION SCH ×2 (07:42→19:31)
[2018-12-13] MEDS: TOPIRAMATE 100 MG TAB PO SCH (07:47)
[2018-12-13] MEDS: DICYCLOMINE 10 MG CAP PO SCH ×2 (07:47→21:05)
[2018-12-13] MEDS: metFORMIN 500 MG TAB PO SCH ×2 (07:48→21:05)
[2018-12-13] MEDS: MULTIVITAMINS, THERA 1 EACH TAB PO SCH (07:48)
[2018-12-13] MEDS: LORATADINE 10 MG TAB PO SCH (07:48)
[2018-12-13] MEDS: BENZONATATE 100 MG CAP PO SCH ×3 (07:48→21:05)
[2018-12-13] MEDS: GABAPENTIN 300 MG CAP PO SCH ×2 (07:48→21:05)
[2018-12-13] MEDS: SERTRALINE 100 MG TAB PO SCH (07:48)
[2018-12-13] MEDS: FUROSEMIDE 20 MG TAB PO SCH ×2 (07:48→16:48)
[2018-12-13] MEDS: POTASSIUM CHLORIDE ER 10 MEQ TAB.ER.PRT PO SCH (07:48)
[2018-12-13] MEDS: guaiFENesin 600 MG TABLET.ER PO SCH ×2 (07:48→21:09)
[2018-12-13] MEDS: PANTOPRAZOLE 40 MG TABLET PO SCH (07:48)
[2018-12-13] MEDS: INSULIN ASPART (NovoLOG) 100 UNIT/ML VIAL SQ SCH ×7 (07:49→21:09)
[2018-12-13] MEDS: GLIMEPIRIDE 2 MG TAB PO SCH ×2 (07:51→17:54)
[2018-12-13 10:16] LABS: Basophils # (A) 0.1 k/uL (0-0.2); Basophils % (A) 0 %; Eosinophils % (A) 0 %; HCT 40.1 % (39.0-53.0); HGB 12.7 gm/dL (13.0-17.5); Hypochromasia Slight; Lymphocytes # (A) 0.8 k/uL (1.0-4.8); Lymphocytes % (A) 5 %; MCH 29.1 pg (25.0-35.0); MCHC 31.7 g/dL (31.0-37.0); MCV 91.6 fL (80.0-100.0); Mean Platelet Volume 7.3; Monocytes # (A) 0.4 k/uL (0-1.0); Monocytes % (A) 2 %; Neutrophils # (A) 15.5 k/uL (1.3-7.7); Neutrophils % (A) 92 %; Platelet Count 361 k/uL (150-450); RBC 4.38 m/uL (4.30-5.90); RDW 14.1 % (11.5-15.5); WBC 16.7 k/uL (3.8-10.6)
[2018-12-13 10:18] LABS: Anion Gap 9 mmol/L; Blood Urea Nitrogen 16 mg/dL (9-20); Calcium 9.9 mg/dL (8.4-10.2); Carbon Dioxide 22 mmol/L (22-30); Chloride 110 mmol/L (98-107); Glucose 204 mg/dL (74-99); Potassium 4.2 mmol/L (3.5-5.1); Sodium 141 mmol/L (137-145)
[2018-12-13 12:18] LABS: Glucose,Whole Blood 162 mg/dL (75-99)
--- NOTE | 2018-12-13 12:21 | P.PCN ---
Date of Procedure: 12/13/18 Preoperative Diagnosis: Chronic urinary incontinence, prostate cancer Postoperative Diagnosis: Same Procedure(s) Performed: Exchange of suprapubic catheter, 18-Serbian, 5 mL balloon Anesthesia: none Surgeon: Elias Pérez Pathology: none sent Condition: stable Disposition: floor Indications for Procedure: The patient is 83. He has prostate cancer that has been treated previously with radical prostatectomy radiation therapy transurethral resection. He has had incontinence requiring 3 sphincter set all eventually failed. He has had a urethrocutaneous fistula. He has a suprapubic tube and an incompetent sphincter. I placed a 20-Serbian suprapubic tube recently but it is uncomfortable 18 feels better. I'll exchange for the 18 Description of Procedure: The patient is prepped and draped sterilely. The previous suprapubic tube is made and removed. An 18-Serbian suprapubic catheter is inserted in the bladder. 10 mL's was placed in the balloon. The catheter ceased nicely. His secured to Kwan. The patient tolerated procedure well.
--- NOTE | 2018-12-13 12:56 | P.PN ---
Subjective Progress Note Date: 12/13/18 12/13/2018: Patient seen and examined. Patient is resting in bed on 2 L nasal cannula. He states he still has a cough and is not feeling much better. He denies fevers and chills. He denies chest pain. He states he has not yet been out of bed. The patient's suprapubic catheter was exchanged by urology gus rodriguez. Objective - Vital Signs Vital signs: Vital Signs Temp 98.0 F 12/13/18 05:11 Pulse 92 12/13/18 12:00 Resp 16 12/13/18 08:00 BP 122/60 12/13/18 05:11 Pulse Ox 95 12/13/18 05:11 Intake & Output 12/12/18 12/13/18 12/13/18 18:59 06:59 18:59 Intake Total 200 Output Total 600 1000 Balance -400 -1000 Weight 69.7 kg 69.5 kg Intake: Oral 200 Output: Urine 600 1000 - Exam General: Patient is alert and oriented 3, no acute distress Cardiovascular: Regular rate and rhythm, S1/S2 Lungs: Bilateral faint expiratory wheezing, diminished breath sounds Abdomen: Soft nontender nondistended positive bowel sounds Extremities: No edema - Labs CBC & Chem 7: 12/13/18 09:19 12/13/18 09:19 Labs: Abnormal Lab Results - Last 24 Hours (Table) 12/12/18 12/13/18 12/13/18 Range/Units 20:52 07:06 09:19 WBC 16.7 H (3.8-10.6) k/uL Hgb 12.7 L (13.0-17.5) gm/dL Neutrophils # 15.5 H (1.3-7.7) k/uL Lymphocytes # 0.8 L (1.0-4.8) k/uL Chloride (98-107) mmol/L Creatinine (0.66-1.25) mg/dL Glucose (74-99) mg/dL POC Glucose (mg/dL) 125 H 160 H (75-99) mg/dL 12/13/18 12/13/18 Range/Units 09:19 12:08 WBC (3.8-10.6) k/uL Hgb (13.0-17.5) gm/dL Neutrophils # (1.3-7.7) k/uL Lymphocytes # (1.0-4.8) k/uL Chloride 110 H (98-107) mmol/L Creatinine 0.62 L (0.66-1.25) mg/dL Glucose 204 H (74-99) mg/dL POC Glucose (mg/dL) 162 H (75-99) mg/dL Microbiology - Last 24 Hours (Table) 12/12/18 18:00 Urine Culture - Preliminary Urine,Suprapubic 12/11/18 17:53 Blood Culture - Preliminary Blood No Growth after 24 hours Assessment and Plan Assessment: Acute exacerbation of asthma (unknown type) and COPD Tracheobronchitis RICH, noncompliant with CPAP 3/4 SIRS Atrial fibrillation History of prostate cancer and chronic suprapubic zimmerman History of CHF, diastolic DM2 uncontrolled History of DVT (1973) GERD Dyslipidemia Hypertension 

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
--- NOTE | 2018-12-13 14:40 | XR ---
EXAMINATION TYPE: XR chest 2V DATE OF EXAM: 12/13/2018 COMPARISON: 12/11/2018 TECHNIQUE: PA and lateral views submitted. HISTORY: Cough FINDINGS: There is subsegmental consolidation at the left lung base. Hyperinflation suggests COPD. Diffuse ost eopenia and arthropathy of the shoulders. Atherosclerotic change of aorta. Hypertrophic and degenerat shahab change of the spine. IMPRESSION: 1. No acute process. Correlate for COPD and left basilar infiltrate.
[2018-12-13] MEDS: methylPREDNISolone SOD SUCCI 40 MG/ML 1 ML VIAL IV SCH (16:48)
[2018-12-13 16:53] LABS: Glucose,Whole Blood 83 mg/dL (75-99)
--- NOTE | 2018-12-13 17:54 | ECHOF ---
Referral Reason:pulm HTN, SOB MEASUREMENTS -------- HEIGHT: 175.3 cm WEIGHT: 69.4 kg BP: 122/60 IVSd: 1.0 cm (0.6 - 1.1) LVIDd: 4.3 cm (3.9 - 5.3) LVPWd: 1.2 cm (0.6 - 1.1) IVSs: 1.4 cm LVIDs: 2.3 cm LVPWs: 1.4 cm Ao Diam: 2.8 cm (2.0 - 3.7) LA Diam: 2.7 cm (2.7 - 3.8) AV Cusp: 1.4 cm (1.5 - 2.6) EPSS: 0.5 cm MV E Higinio: 0.78 m/s MV DecT: 284 ms MV A Higinio: 1.10 m/s MV E/A Ratio: 0.71 MV EF SLOPE: 177.02 mm/s (70 - 150) MV EXCURSION: 2.41 cm (> 18.000) FINDINGS -------- Sinus rhythm. The left ventricular size is normal. Left ventricular wall thickness is normal. Overall left vent ricular systolic function is normal with, an EF between 55 - 60 %. The right ventricle is normal in size. The left atrial size is normal. The right atrial size is normal. 5 ml of Lumason was utilized for enhancement of images. The aortic valve is trileaflet, and appears structurally normal. No aortic stenosis or regurgitation. Mild mitral regurgitation is present. Mild tricuspid regurgitation present. Right ventricular systolic pressure is normal at < 35 mmHg. There is no evidence of pulmonary hypertension. The pulmonic valve was not well visualized. The aortic root size is normal. IVC Not well visulized. There is no pericardial effusion. CONCLUSIONS -------- 1. The left ventricular size is normal. 2. Left ventricular wall thickness is normal. 3. Overall left ventricular systolic function is normal with, an EF between 55 - 60 %. 4. The right ventricle is normal in size. 5. The left atrial size is normal. 6. The right atrial size is normal. 7. XX ml of Lumason was utilized for enhancement of images. 8. The aortic valve is trileaflet, and appears structurally normal. No aortic stenosis or regurgitati on. 9. Mild mitral regurgitation is present. 10. Mild tricuspid regurgitation present. 11. Right ventricular systolic pressure is normal at < 35 mmHg. 12. There is no evidence of pulmonary hypertension. 13. The pulmonic valve was not well visualized. 14. The aortic root size is normal. 15. IVC Not well visulized. 16. There is no pericardial effusion. CLINICAL LABORATORY TECHNOLOGIST: Tonia Doty RDCS
[2018-12-13 20:36] LABS: Glucose,Whole Blood 113 mg/dL (75-99)
[2018-12-13] MEDS: ATORVASTATIN 40 MG TAB PO SCH (21:05)
[2018-12-13] MEDS: LEVOFLOXACIN 500 MG TAB PO SCH (21:05)
[2018-12-13] MEDS: MONTELUKAST 10 MG TAB PO SCH (21:09)
[2018-12-14] MEDS: methylPREDNISolone SOD SUCCI 40 MG/ML 1 ML VIAL IV SCH ×4 (00:07→23:04)
[2018-12-14] MEDS: LEVOTHYROXINE 25 MCG TAB PO SCH (05:51)
[2018-12-14 07:17] LABS: Glucose,Whole Blood 115 mg/dL (75-99)
[2018-12-14] MEDS: FORMOTEROL FUMARATE 20 MCG/2 ML NEBU INHALATION SCH ×2 (07:25→19:46)
[2018-12-14] MEDS: BUDESONIDE 0.5 MG/2 ML NEBU INHALATION SCH ×2 (07:25→19:46)
[2018-12-14] MEDS: IPRATROPIUM-ALBUTEROL 3 ML NEB INHALATION SCH ×3 (07:25→19:46)
[2018-12-14] MEDS: INSULIN ASPART (NovoLOG) 100 UNIT/ML VIAL SQ SCH ×7 (08:12→23:18)
[2018-12-14] MEDS: GLIMEPIRIDE 2 MG TAB PO SCH ×2 (08:15→17:35)
[2018-12-14] MEDS: FUROSEMIDE 20 MG TAB PO SCH ×2 (08:15→16:29)
[2018-12-14] MEDS: SERTRALINE 100 MG TAB PO SCH (08:15)
[2018-12-14] MEDS: POTASSIUM CHLORIDE ER 10 MEQ TAB.ER.PRT PO SCH (08:15)
[2018-12-14] MEDS: DICYCLOMINE 10 MG CAP PO SCH ×2 (08:15→22:53)
[2018-12-14] MEDS: metFORMIN 500 MG TAB PO SCH ×2 (08:15→22:53)
[2018-12-14] MEDS: BENZONATATE 100 MG CAP PO SCH ×3 (08:15→22:53)
[2018-12-14] MEDS: GABAPENTIN 300 MG CAP PO SCH ×2 (08:16→22:55)
[2018-12-14] MEDS: LORATADINE 10 MG TAB PO SCH (08:16)
[2018-12-14] MEDS: TOPIRAMATE 100 MG TAB PO SCH (08:16)
[2018-12-14] MEDS: guaiFENesin 600 MG TABLET.ER PO SCH ×2 (08:16→22:53)
[2018-12-14] MEDS: PANTOPRAZOLE 40 MG TABLET PO SCH (08:16)
[2018-12-14] MEDS: MULTIVITAMINS, THERA 1 EACH TAB PO SCH (08:16)
[2018-12-14 11:01] LABS: Basophils % (A) 0 %; Eosinophils % (A) 0 %; HCT 39.6 % (39.0-53.0); HGB 12.5 gm/dL (13.0-17.5); Hypochromasia Slight; Lymphocytes # (A) 0.7 k/uL (1.0-4.8); Lymphocytes % (A) 5 %; MCH 29.2 pg (25.0-35.0); MCHC 31.5 g/dL (31.0-37.0); MCV 92.8 fL (80.0-100.0); Mean Platelet Volume 7.1; Monocytes # (A) 0.6 k/uL (0-1.0); Monocytes % (A) 4 %; Neutrophils # (A) 13.6 k/uL (1.3-7.7); Neutrophils % (A) 91 %; Platelet Count 341 k/uL (150-450); RBC 4.27 m/uL (4.30-5.90); RDW 14.4 % (11.5-15.5); WBC 14.9 k/uL (3.8-10.6)
[2018-12-14 11:58] LABS: Glucose,Whole Blood 108 mg/dL (75-99)
[2018-12-14 12:01] LABS: Anion Gap 7 mmol/L; Blood Urea Nitrogen 17 mg/dL (9-20); Calcium 9.9 mg/dL (8.4-10.2); Carbon Dioxide 23 mmol/L (22-30); Chloride 109 mmol/L (98-107); Glucose 150 mg/dL (74-99); Sodium 139 mmol/L (137-145)
[2018-12-14 12:58] LABS: Alt. alternata IgE Class CLASS 0; Alternaria alternata IgE <0.35 kU/L (<0.35); Asperg. fumagatus IgE <0.35 kU/L (<0.35); Asperg. fumagatus IgE Class CLASS 0; Bermuda Grass IgE 3.29 kU/L (<0.35); Birch(Com.Silvr) IgE 2.18 kU/L (<0.35); Birch(Com.Silvr) IgE Class CLASS II; Cat Epith & Dander IgE <0.35 kU/L (<0.35); Cat Epith & Dander IgE Class CLASS 0; Clad herbarum IgE <0.35 kU/L (<0.35); Cockroach IgE 3.35 kU/L (<0.35); Cottonwood IgE 2.91 kU/L (<0.35); Dermato. Pteronyssinus IgE 1.27 kU/L (<0.35); Dermato. farinae IgE 1.65 kU/L (<0.35); Dermato. farinae IgE Class CLASS II; Dog Dander IgE <0.35 kU/L (<0.35); Elm IgE 3.15 kU/L (<0.35); Maple (Box Elder) IgE 2.88 kU/L (<0.35); Maple (Box Elder) IgE Class CLASS II; Mountain Cedar IgE 2.49 kU/L (<0.35); Mountain Cedar IgE Class CLASS II; Mouse Urine IgE Class CLASS 0; Nettle IgE Class CLASS II; Oak IgE 2.72 kU/L (<0.35); Penicillium notatum IgE Class CLASS 0; Rough Marshelder IgE 3.45 kU/L (<0.35); Rough Marshelder IgE Class CLASS II; Timothy Grass IgE 3.11 kU/L (<0.35); White Ash IgE Class CLASS II
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
[2018-12-14 17:02] LABS: Glucose,Whole Blood 76 mg/dL (75-99)
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
[2018-12-14 20:30] LABS: Glucose,Whole Blood 143 mg/dL (75-99)
[2018-12-14] MEDS: ATORVASTATIN 40 MG TAB PO SCH (22:52)
[2018-12-14] MEDS: LEVOFLOXACIN 500 MG TAB PO SCH (22:53)
[2018-12-14] MEDS: MONTELUKAST 10 MG TAB PO SCH (22:53)
[2018-12-15] MEDS: LEVOTHYROXINE 25 MCG TAB PO SCH (06:13)
[2018-12-15 07:26] LABS: Glucose,Whole Blood 131 mg/dL (75-99)
[2018-12-15] MEDS: FORMOTEROL FUMARATE 20 MCG/2 ML NEBU INHALATION SCH (07:31)
[2018-12-15] MEDS: BUDESONIDE 0.5 MG/2 ML NEBU INHALATION SCH (07:31)
[2018-12-15] MEDS: IPRATROPIUM-ALBUTEROL 3 ML NEB INHALATION SCH ×2 (07:31→13:06)
[2018-12-15 07:34] VITALS: BP 129/62; RESP 16; TEMP 97
[2018-12-15] MEDS: PANTOPRAZOLE 40 MG TABLET PO SCH (07:56)
[2018-12-15] MEDS: GLIMEPIRIDE 2 MG TAB PO SCH (07:56)
[2018-12-15] MEDS: GABAPENTIN 300 MG CAP PO SCH (07:56)
[2018-12-15] MEDS: DICYCLOMINE 10 MG CAP PO SCH (07:56)
[2018-12-15] MEDS: methylPREDNISolone SOD SUCCI 40 MG/ML 1 ML VIAL IV SCH (07:56)
[2018-12-15] MEDS: guaiFENesin 600 MG TABLET.ER PO SCH (07:56)
[2018-12-15] MEDS: FUROSEMIDE 20 MG TAB PO SCH (07:57)
[2018-12-15] MEDS: MULTIVITAMINS, THERA 1 EACH TAB PO SCH (07:57)
[2018-12-15] MEDS: metFORMIN 500 MG TAB PO SCH (07:57)
[2018-12-15] MEDS: LORATADINE 10 MG TAB PO SCH (07:57)
[2018-12-15] MEDS: POTASSIUM CHLORIDE ER 10 MEQ TAB.ER.PRT PO SCH (07:57)
[2018-12-15] MEDS: TOPIRAMATE 100 MG TAB PO SCH (07:57)
[2018-12-15] MEDS: SERTRALINE 100 MG TAB PO SCH (07:57)
[2018-12-15] MEDS: BENZONATATE 100 MG CAP PO SCH (07:59)
[2018-12-15] MEDS: INSULIN ASPART (NovoLOG) 100 UNIT/ML VIAL SQ SCH ×4 (08:03→12:17)
[2018-12-15 09:41] LABS: Basophils % (A) 0 %; Eosinophils % (A) 0 %; HCT 43.2 % (39.0-53.0); HGB 13.3 gm/dL (13.0-17.5); Hypochromasia Slight; Lymphocytes # (A) 1.5 k/uL (1.0-4.8); Lymphocytes % (A) 10 %; MCH 28.4 pg (25.0-35.0); MCHC 30.7 g/dL (31.0-37.0); MCV 92.6 fL (80.0-100.0); Mean Platelet Volume 7.1; Monocytes # (A) 0.5 k/uL (0-1.0); Monocytes % (A) 4 %; Neutrophils # (A) 13.2 k/uL (1.3-7.7); Neutrophils % (A) 86 %; Platelet Count 342 k/uL (150-450); RBC 4.67 m/uL (4.30-5.90); RDW 14.6 % (11.5-15.5); WBC 15.3 k/uL (3.8-10.6)
[2018-12-15 10:08] LABS: Anion Gap 9 mmol/L; Blood Urea Nitrogen 20 mg/dL (9-20); Calcium 9.9 mg/dL (8.4-10.2); Carbon Dioxide 24 mmol/L (22-30); Chloride 109 mmol/L (98-107); Glucose 89 mg/dL (74-99); Potassium 3.7 mmol/L (3.5-5.1); Sodium 142 mmol/L (137-145)
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
[2018-12-15 12:16] LABS: Glucose,Whole Blood 64 mg/dL (75-99)
[2018-12-15 12:40] LABS: Glucose,Whole Blood 76 mg/dL (75-99)
[2018-12-15 13:08] VITALS: PULSE 76
[2018-12-16 16:00] LABS: Alternaria Alternata IgG 9.7 mcg/mL (< 13.6); Aspergillus fumigatus IgG Not detected (Not detected); Aureobasidium pullulans IgG 5.4 mcg/mL (< 13.6); Cladosporium herbarium IgG 38.7 mcg/mL (< 14.7); Phoma ssp. IgG 12.3 mcg/mL (< 6.6); Saccaharomospora viridis Not detected (Not detected); Saccaharopoly. rectivirgula Not detected (Not detected)
== END 2018-12-15 13:42 | disposition home health service (06) | DRG 190 ==
LOC: EC 17:20 → 4MS4W 20:00
PROVIDERS: ADMIT Family Medicine; ATTEND Family Medicine
PROC: 0T2BX0Z Change Drainage Device in Bladder, External Approach (ICD-10-PCS; principal; 2018-12-13)
DX: J44.1 Chronic obstructive pulmonary disease with (acute) exacerbation (principal); J96.22 Acute and chronic respiratory failure with hypercapnia; J96.21 Acute and chronic respiratory failure with hypoxia; J15.212 Pneumonia due to Methicillin resistant Staphylococcus aureus; I50.32 Chronic diastolic (congestive) heart failure; J45.901 Unspecified asthma with (acute) exacerbation; E11.42 Type 2 diabetes mellitus with diabetic polyneuropathy; E11.65 Type 2 diabetes mellitus with hyperglycemia; I11.0 Hypertensive heart disease with heart failure; I48.2 Chronic atrial fibrillation; F03.90 Unspecified dementia, unspecified severity, without behavioral disturbance, psychotic disturbance, mood disturbance, and anxiety; D64.9 Anemia, unspecified; K21.9 Gastro-esophageal reflux disease without esophagitis; G47.33 Obstructive sleep apnea (adult) (pediatric); F17.210 Nicotine dependence, cigarettes, uncomplicated; E78.5 Hyperlipidemia, unspecified; F32.9 Major depressive disorder, single episode, unspecified; R32 Unspecified urinary incontinence; T38.0X5A Adverse effect of glucocorticoids and synthetic analogues, initial encounter; J44.0 Chronic obstructive pulmonary disease with (acute) lower respiratory infection; J20.9 Acute bronchitis, unspecified; H92.02 Otalgia, left ear; Z68.22 Body mass index [BMI] 22.0-22.9, adult; Z71.3 Dietary counseling and surveillance; Z79.899 Other long term (current) drug therapy; Z79.51 Long term (current) use of inhaled steroids; Z79.84 Long term (current) use of oral hypoglycemic drugs; Z79.890 Hormone replacement therapy; Z86.73 Personal history of transient ischemic attack (TIA), and cerebral infarction without residual deficits; Z92.3 Personal history of irradiation; Z86.718 Personal history of other venous thrombosis and embolism; Z86.14 Personal history of Methicillin resistant Staphylococcus aureus infection; Z90.81 Acquired absence of spleen; Z98.42 Cataract extraction status, left eye; Z98.41 Cataract extraction status, right eye; Z90.79 Acquired absence of other genital organ(s); Z85.46 Personal history of malignant neoplasm of prostate; Z91.19 Patient's noncompliance with other medical treatment and regimen; Z87.440 Personal history of urinary (tract) infections; Z91.048 Other nonmedicinal substance allergy status; Z80.0 Family history of malignant neoplasm of digestive organs; Z80.42 Family history of malignant neoplasm of prostate
CPT/HCPCS: 36415; 71046; 80048; 80053; 80307; 82103; 82785; 83880; 84484; 85025; 85610; 85730; 86001; 86003; 86606; 86609; 87040; 87070; 87077; 87086; 87186; 87205; 93005; 93306; 94640; 94667; 94760; 96361; 96365; 96366; 96375; 99285

== ENCOUNTER → 2020-01-11 | Outpatient (CLI) | payer MEDICARE ==
[2020-01-11 13:38] LABS: African American GFR (CKD) >90 (>60 ml/min/1.73 sqM); Blood Urea Nitrogen 16 mg/dL (9-20); Non-African American GFR(CKD) 79 (>60 ml/min/1.73 sqM)
--- NOTE | 2020-01-11 17:29 | CT ---
EXAMINATION TYPE: CT brain wo/w con DATE OF EXAM: 01/11/2020 COMPARISON: CT brain August 16, 2018 HISTORY: Stroke CT DLP: [id number] mGycm Automated exposure control for dose reduction was used. CONTRAST: CT scan of the head is performed without and with IV Contrast, patient injected with 100 ml mL of Iso luann 300. FINDINGS: Noncontrast images show no acute intracranial hemorrhage or midline shift. 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 There is diffuse ventricular and sulcal prominence. There is areas of low attenuation throughout the deep and periventricular white matter. Hyperostosis frontalis. Old lacunar infarct right basal gangl ia redemonstrated. Postcontrast images show no suspicious enhancing masses. The globes are intact and the visualized sinuses are clear. IMPRESSION: Persistent moderate diffuse cerebral atrophy and moderate to advanced chronic small vesse l ischemic changes with scattered old infarcts. No abnormal enhancing masses. No significant progress ion from prior CT.
== END | disposition home or self-care (01) ==
LOC: RADCTMAIN 12:40
PROVIDERS: ATTEND Ophthalmology
DX: G31.9 Degenerative disease of nervous system, unspecified (principal); I67.82 Cerebral ischemia; I63.9 Cerebral infarction, unspecified
CPT/HCPCS: 82565; 84520; 70470; 36415; Q9967

== ENCOUNTER 2020-01-25 18:22 | Inpatient (IN) | payer MEDICARE ==
[2020-01-25 18:48] LABS: Glucose,Whole Blood 57 mg/dL (75-99)
[2020-01-25] MEDS ORDERED: SODIUM CHLORIDE 0.9% 1,000 ML IV ONE ×2 (19:02→20:44)
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
[2020-01-25 19:11] LABS: Basophils % (A) 0 %; Eosinophils # (A) 0.1 k/uL (0-0.7); Eosinophils % (A) 0 %; HCT 40.4 % (39.0-53.0); HGB 12.8 gm/dL (13.0-17.5); Lymphocytes % (A) 6 %; MCH 29.1 pg (25.0-35.0); MCHC 31.8 g/dL (31.0-37.0); MCV 91.6 fL (80.0-100.0); Mean Platelet Volume 7.3; Monocytes # (A) 1.2 k/uL (0-1.0); Monocytes % (A) 7 %; Neutrophils # (A) 14.1 k/uL (1.3-7.7); Neutrophils % (A) 85 %; Platelet Count 319 k/uL (150-450); RBC 4.41 m/uL (4.30-5.90); RDW 13.8 % (11.5-15.5); WBC 16.6 k/uL (3.8-10.6)
[2020-01-25 19:20] LABS: ALT 85 U/L (4-49); AST 169 U/L (17-59); African American GFR (CKD) >90 (>60 ml/min/1.73 sqM); Albumin 3.7 g/dL (3.5-5.0); Alkaline Phosphatase 92 U/L (38-126); Anion Gap 13 mmol/L; Blood Urea Nitrogen 19 mg/dL (9-20); Calcium 10.9 mg/dL (8.4-10.2); Carbon Dioxide 21 mmol/L (22-30); Chloride 107 mmol/L (98-107); Glucose 52 mg/dL (74-99); Non-African American GFR(CKD) 89 (>60 ml/min/1.73 sqM); Potassium 3.6 mmol/L (3.5-5.1); Sodium 141 mmol/L (137-145); Total Bilirubin 0.7 mg/dL (0.2-1.3); Total Protein 7.1 g/dL (6.3-8.2)
[2020-01-25 19:22] LABS: Amorphous Sediment,Urine Rare /hpf; Appearance,Urine Turbid (Clear); Bacteria,Urine Many /hpf; Bilirubin,Urine Negative (Negative); Blood,Urine Moderate (Negative); Calcium Oxalate Crystals,Urine Few /hpf; Color,Urine Yellow; Glucose,Urine (UA) Negative (Negative); Hyaline Casts,Urine 3 /lpf (0-2); Ketones,Urine 2+ (Negative); Leukocyte Esterase,Urine Large (Negative); Mucus,Urine Occasional /hpf; Nitrite,Urine Negative (Negative); Partial Thromboplastin Time 25.9 sec (22.0-30.0); Protein,Urine 2+ (Negative); Prothrombin Time 10.5 sec (9.0-12.0); RBC,Urine 66 /hpf (0-5); Specific Gravity,Urine 1.019 (1.001-1.035); WBC,Urine >182 /hpf (0-5)
--- NOTE | 2020-01-25 19:22 | XR ---
EXAMINATION TYPE: XR chest 2V DATE OF EXAM: 01/25/2020 COMPARISON: 12/13/2018 HISTORY: Altered mental status weakness TECHNIQUE: 2 views FINDINGS: There is 7 x 5 cm area of masslike consolidation in the left lower lobe posteriorly. This i s probably in the superior segment. The right lung is clear of infiltrate. There is no heart failure. Heart size is normal. There is some patchy infiltrate at the left lung base. There is blunting left costophrenic angle. IMPRESSION: There is left lower lobe consolidation that appears new compared to old exam. There is ma sslike density in the superior segment. Tumor should be considered. There is probably underlying COPD .
[2020-01-25 19:24] LABS: Amphetamine Screen,Urine Not Detected (NotDetected); Barbiturate Screen,Urine Not Detected (NotDetected); Benzodiazepines Screen,Urine Not Detected (NotDetected); Cocaine Screen,Urine Not Detected (NotDetected); Methadone Screen, Urine Not Detected (NotDetected); Opiate Screen,Urine Not Detected (NotDetected); Oxycodone Screen, Urine Not Detected (NotDetected); Phencyclidine Screen,Urine Not Detected (NotDetected); Tricyclic Antidepressant,Urine Not Detected (NotDetected); Urn Cannabinoid Scrn Not Detected (NotDetected)
[2020-01-25] MEDS ORDERED: cefTRIAXone IN SWFI 1,000 MG/10 ML SYRINGE IVP STA (19:42)
[2020-01-25] MEDS ORDERED: DEXTROSE 50% SYRINGE 50 ML IVP STA (21:57)
[2020-01-25 22:01] LABS: Glucose,Whole Blood 28 mg/dL (75-99)
[2020-01-25 22:15] LABS: Glucose,Whole Blood 141 mg/dL (75-99)
[2020-01-25 22:54] LABS: Glucose,Whole Blood 119 mg/dL (75-99)
[2020-01-25 23:14] LABS: Glucose,Whole Blood 109 mg/dL (75-99)
[2020-01-26 00:16] LABS: Glucose,Whole Blood 116 mg/dL (75-99)
[2020-01-26 07:08] LABS: Glucose,Whole Blood 46 mg/dL (75-99)
[2020-01-26 07:24] LABS: Glucose,Whole Blood 63 mg/dL (75-99)
[2020-01-26 07:44] LABS: Glucose,Whole Blood 97 mg/dL (75-99)
[2020-01-26] MEDS ORDERED: GABAPENTIN 300 MG CAP PO PRN (08:57)
[2020-01-26] MEDS ORDERED: FUROSEMIDE 20 MG TAB PO SCH (09:00)
[2020-01-26] MEDS ORDERED: POTASSIUM CITRATE 10 MEQ TABLET.ER PO SCH (09:00)
[2020-01-26] MEDS: DICYCLOMINE 10 MG CAP PO SCH ×2 (10:37→20:51)
[2020-01-26] MEDS: PANTOPRAZOLE 40 MG/10 ML VIAL IVP SCH (10:37)
[2020-01-26] MEDS: MULTIVITAMINS, THERA 1 EACH TAB PO SCH (10:37)
[2020-01-26] MEDS: TOPIRAMATE 100 MG TAB PO SCH (10:43)
[2020-01-26] MEDS: LEVOTHYROXINE 50 MCG TAB PO SCH (10:43)
[2020-01-26] MEDS: POTASSIUM CHLORIDE ER 10 MEQ TAB.ER.PRT PO SCH (10:43)
[2020-01-26 11:28] LABS: Glucose,Whole Blood 157 mg/dL (75-99)
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
[2020-01-26] MEDS ORDERED: INSULIN ASPART (NovoLOG) 100 UNIT/ML VIAL SQ SCH (12:30)
--- NOTE | 2020-01-26 14:43 | FL ---
Modified barium swallow. HISTORY: Dysphagia. Modified barium swallow was performed with the department of speech pathology. The patient was prese nted with various consistencies of barium. Ming aspiration was noted with thin liquid barium as well as deep penetration with the honey thick b arium. Full report is to follow from the department of speech pathology. Impression: Gross aspiration.
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
[2020-01-26] MEDS: DEXTROSE 5%-0.9% NACL 1,000 ML IV SCH (16:16)
--- NOTE | 2020-01-26 16:34 | ECHOF ---
Referral Reason:LV function MEASUREMENTS -------- HEIGHT: 175.3 cm WEIGHT: 63.5 kg BP: IVSd: 1.3 cm (0.6 - 1.1) LVIDd: 3.4 cm (3.9 - 5.3) LVPWd: 1.9 cm (0.6 - 1.1) IVSs: 1.2 cm LVIDs: 2.4 cm LVPWs: 1.9 cm LAESV Index (A-L): 29.98 ml/m Ao Diam: 3.1 cm (2.0 - 3.7) AV Cusp: 1.3 cm (1.5 - 2.6) MV EXCURSION: 18.072 mm (> 18.000) MV EF SLOPE: 78 mm/s (70 - 150) EPSS: 1.3 cm MV E Higinio: 1.05 m/s MV DecT: 216 ms MV A Higinio: 1.03 m/s MV E/A Ratio: 1.02 AR PHT: 412 ms RAP: 5.00 mmHg RVSP: 40.24 mmHg FINDINGS -------- This was a technically difficult study with suboptimal views. The left ventricular size is normal. There is moderate concentric left ventricular hypertrophy. O verall left ventricular systolic function is normal with, an EF between 55 - 60 %. The RV was not well visualized. LA is midly dilated 29-33ml/m2. The right atrium was not well visualized. 5.0mg of Lumason was utilized for enhancement of images Interatrial and interventricular septum intact. There is moderate aortic valve sclerosis. Trace amount of aortic regurgitation. There is no evid ence of aortic stenosis. Mild mitral annular calcification present. Mild mitral regurgitation is present. [id number]-[id number] tricuspid regurgitation present. There is mild to moderate pulmonary hypertension. The right ventricular systolic pressure, as measured by Doppler, is 40.24mmHg. The pulmonic valve was not well visualized. The aortic root size is normal. IVC Not well visulized. There is no pericardial effusion. CONCLUSIONS -------- 1. This was a technically difficult study with suboptimal views. 2. The left ventricular size is normal. 3. There is moderate concentric left ventricular hypertrophy. 4. Overall left ventricular systolic function is normal with, an EF between 55 - 60 %. 5. The RV was not well visualized. 6. LA is midly dilated 29-33ml/m2. 7. The right atrium was not well visualized. 8. 5.0mg of Lumason was utilized for enhancement of images 9. Interatrial and interventricular septum intact. 10. There is moderate aortic valve sclerosis. 11. Trace amount of aortic regurgitation. 12. There is no evidence of aortic stenosis. 13. Mild mitral annular calcification present. 14. Mild mitral regurgitation is present. 15. [id number] tricuspid regurgitation present. 16. There is mild to moderate pulmonary hypertension. 17. The right ventricular systolic pressure, as measured by Doppler, is 40.24mmHg. 18. The pulmonic valve was not well visualized. 19. The aortic root size is normal. 20. IVC Not well visulized. 21. There is no pericardial effusion. HAT MODEL: Tonia Doty RDCS
[2020-01-26] MEDS: INSULIN ASPART (NovoLOG) 100 UNIT/ML VIAL SQ SCH (17:44)
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
[2020-01-26 18:28] LABS: Glucose,Whole Blood 74 mg/dL (75-99)
--- NOTE | 2020-01-26 18:30 | CT ---
EXAMINATION TYPE: CT chest wo con DATE OF EXAM: 01/26/2020 COMPARISON: 01/25/2020 HISTORY: 84-year-old male Left lower lobe lung mass. TECHNIQUE: Contiguous axial scanning of the chest without IV contrast. Coronal and sagittal reconstru ctions performed. CT DLP: 375.9 mGycm Automated exposure control for dose reduction was used. FINDINGS: Heart normal size with trace anterior pericardial fluid. Extensive three-vessel coronary artery calci fications are present. Borderline ectatic aortic root and 3.6 cm. Ascending aorta ectatic and 3.9 cm. Moderate atherosclerotic arch calcifications. Conventional branch ing anatomy. Mildly aneurysmal ascending thoracic aorta 3.4 cm. Scattered nonenlarged mediastinal lymph nodes measuring up to 7 mm. Additional 1.1 cm subcarinal lymp h node. No thoracic lymphadenopathy by CT size criteria. [id number] central lobular. Extensive consolidation left lower lobe with more confluent changes superior segment left lower lobe and some underlying cavitary change with air-fluid level. This dima esponds to the area of masslike opacity on radiograph. There is a band of atelectasis along the inferior lingula. Irregular opacity right middle lobe measuring 1.4 cm for which follow-up is recommended. 1 cm right basilar pulmonary nodule, axial image 54. Also be reassessed at follow-up. Lesser degree of interstitial and patchy changes at the posterior right base. Visualized upper abdomen shows moderate atherosclerotic changes within the abdominal aorta. [place] er is mildly hydropic and 4.4 cm wide probably due to fasting state. Possible moderate to severe athe rosclerotic narrowing at the origin of the SMA. Bones: Osteopenia. Small superior plate Schmorl's node C7. Partial interbody lordosis T12-L1. IMPRESSION: 1. EXTENSIVE AIRSPACE DISEASE WITHIN THE LEFT LOWER LOBE. THIS BECOMES SEVERE AND CONFLUENT IN THE HENRY PERIOR SEGMENT CORRESPONDING TO THE MASSLIKE OPACITY ON RADIOGRAPH. SUSPECT SOME ASSOCIATED CAVITARY CHANGE WITH SMALL AIR-FLUID LEVEL. CORRELATE FOR SEVERE PNEUMONIA AND EARLY CAVITARY NECROSIS. 2. SHORT INTERVAL FOLLOW-UP THE PATIENT RECEIVES TREATMENT TO ENSURE CLEARING AND EXCLUDE UNDERLYI NG MASS. 3. 1.4 CM AND 1.0 CM NODULES IN THE RIGHT MIDDLE AND RIGHT LOWER LOBE SHOULD BE REASSESSED AT 3 MONTH FOLLOW-UP. 4. LESSER DEGREE OF INFILTRATE AT THE POSTERIOR RIGHT BASE. 5. COPD WITH MODERATE EMPHYSEMA. CAD WITH EXTENSIVE THREE-VESSEL CORONARY ARTERY CALCIFICATIONS. 6. HYDROPIC GALLBLADDER LIKELY DUE TO FASTING STATE. IF CONCERN FOR EARLY ACUTE CHOLECYSTITIS, HIDA S CAN COULD BE PERFORMED. 7. POSSIBLE MODERATE TO SEVERE ATHEROSCLEROTIC STENOSIS OF THE SMA ORIGIN.
[2020-01-26] MEDS: SYMBICORT 160-4.5 MCG INHALER INHALATION SCH (19:44)
[2020-01-26 20:01] LABS: Glucose,Whole Blood 87 mg/dL (75-99)
[2020-01-26] MEDS: LORATADINE 10 MG TAB PO SCH (20:51)
[2020-01-26] MEDS: ATORVASTATIN 40 MG TAB PO SCH (20:51)
[2020-01-26 23:49] LABS: Glucose,Whole Blood 99 mg/dL (75-99)
[2020-01-27] MEDS: INSULIN ASPART (NovoLOG) 100 UNIT/ML VIAL SQ SCH ×4 (00:07→17:59)
[2020-01-27 02:05] LABS: Glucose,Whole Blood 100 mg/dL (75-99)
[2020-01-27] MEDS: LEVOTHYROXINE 50 MCG TAB PO SCH (04:50)
[2020-01-27 06:01] LABS: Glucose,Whole Blood 144 mg/dL (75-99)
[2020-01-27 07:41] LABS: Basophils % (A) 0 %; Eosinophils # (A) 0.2 k/uL (0-0.7); Eosinophils % (A) 2 %; HGB 11.6 gm/dL (13.0-17.5); Hypochromasia Slight; Lymphocytes # (A) 1.2 k/uL (1.0-4.8); Lymphocytes % (A) 11 %; MCH 30.7 pg (25.0-35.0); MCHC 32.2 g/dL (31.0-37.0); MCV 95.3 fL (80.0-100.0); Mean Platelet Volume 7.1; Monocytes # (A) 0.8 k/uL (0-1.0); Monocytes % (A) 7 %; Neutrophils % (A) 80 %; Platelet Count 314 k/uL (150-450); RBC 3.77 m/uL (4.30-5.90); RDW 13.7 % (11.5-15.5); WBC 11.3 k/uL (3.8-10.6)
[2020-01-27] MEDS: SYMBICORT 160-4.5 MCG INHALER INHALATION SCH ×2 (07:53→19:40)
[2020-01-27 07:58] LABS: African American GFR (CKD) >90 (>60 ml/min/1.73 sqM); Anion Gap 4 mmol/L; Blood Urea Nitrogen 9 mg/dL (9-20); Calcium 9.2 mg/dL (8.4-10.2); Carbon Dioxide 25 mmol/L (22-30); Chloride 111 mmol/L (98-107); Glucose 129 mg/dL (74-99); Non-African American GFR(CKD) >90 (>60 ml/min/1.73 sqM); Potassium 3.6 mmol/L (3.5-5.1); Sodium 140 mmol/L (137-145)
[2020-01-27 11:17] LABS: Glucose,Whole Blood 153 mg/dL (75-99)
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
[2020-01-27] MEDS: DEXTROSE 5%-0.9% NACL 1,000 ML IV SCH (13:25)
[2020-01-27] MEDS: DICYCLOMINE 10 MG CAP PO SCH ×2 (16:53→19:58)
[2020-01-27] MEDS: MULTIVITAMINS, THERA 1 EACH TAB PO SCH (16:53)
[2020-01-27] MEDS: POTASSIUM CHLORIDE ER 10 MEQ TAB.ER.PRT PO SCH (16:56)
[2020-01-27] MEDS: TOPIRAMATE 100 MG TAB PO SCH (16:56)
[2020-01-27 17:11] LABS: Glucose,Whole Blood 175 mg/dL (75-99)
[2020-01-27] MEDS: PIPERACILLIN-TAZOBACTAM 3.375 GM in SODIUM CHLORIDE 0.9% 100 ML IVPB SCH ×2 (17:58→23:59)
[2020-01-27] MEDS: PANTOPRAZOLE 40 MG/10 ML VIAL IVP SCH (17:59)
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
[2020-01-27] MEDS: ATORVASTATIN 40 MG TAB PO SCH (19:58)
[2020-01-27] MEDS: LORATADINE 10 MG TAB PO SCH (19:58)
[2020-01-27 23:53] LABS: Glucose,Whole Blood 140 mg/dL (75-99)
[2020-01-28] MEDS: INSULIN ASPART (NovoLOG) 100 UNIT/ML VIAL SQ SCH ×4 (00:05→17:33)
[2020-01-28] MEDS: LEVOTHYROXINE 50 MCG TAB PO SCH (04:55)
[2020-01-28 06:13] LABS: Glucose,Whole Blood 155 mg/dL (75-99)
[2020-01-28 07:09] LABS: Basophils % (A) 0 %; Eosinophils # (A) 0.3 k/uL (0-0.7); Eosinophils % (A) 3 %; HCT 37.3 % (39.0-53.0); HGB 11.9 gm/dL (13.0-17.5); Hypochromasia Slight; Lymphocytes # (A) 0.9 k/uL (1.0-4.8); Lymphocytes % (A) 9 %; MCH 30.2 pg (25.0-35.0); MCHC 31.8 g/dL (31.0-37.0); Mean Platelet Volume 6.8; Monocytes # (A) 0.6 k/uL (0-1.0); Monocytes % (A) 6 %; Neutrophils # (A) 7.6 k/uL (1.3-7.7); Neutrophils % (A) 80 %; Platelet Count 356 k/uL (150-450); RBC 3.92 m/uL (4.30-5.90); RDW 13.7 % (11.5-15.5); WBC 9.5 k/uL (3.8-10.6)
[2020-01-28] MEDS: SYMBICORT 160-4.5 MCG INHALER INHALATION SCH ×2 (07:24→20:42)
[2020-01-28 07:35] LABS: African American GFR (CKD) >90 (>60 ml/min/1.73 sqM); Anion Gap 6 mmol/L; Blood Urea Nitrogen 9 mg/dL (9-20); Calcium 9.4 mg/dL (8.4-10.2); Carbon Dioxide 23 mmol/L (22-30); Chloride 114 mmol/L (98-107); Glucose 169 mg/dL (74-99); Non-African American GFR(CKD) >90 (>60 ml/min/1.73 sqM); Potassium 3.6 mmol/L (3.5-5.1); Sodium 143 mmol/L (137-145)
[2020-01-28] MEDS: PIPERACILLIN-TAZOBACTAM 3.375 GM in SODIUM CHLORIDE 0.9% 100 ML IVPB SCH ×2 (09:43→17:31)
[2020-01-28] MEDS: TOPIRAMATE 100 MG TAB PO SCH (09:55)
[2020-01-28] MEDS: DICYCLOMINE 10 MG CAP PO SCH ×2 (09:55→19:57)
[2020-01-28] MEDS: POTASSIUM CHLORIDE ER 10 MEQ TAB.ER.PRT PO SCH (09:55)
[2020-01-28] MEDS: MULTIVITAMINS, THERA 1 EACH TAB PO SCH (09:55)
[2020-01-28] MEDS: PANTOPRAZOLE 40 MG/10 ML VIAL IVP SCH (09:55)
[2020-01-28 11:24] LABS: Glucose,Whole Blood 209 mg/dL (75-99)
[2020-01-28 17:18] LABS: Glucose,Whole Blood 167 mg/dL (75-99)
[2020-01-28] MEDS: DEXTROSE 5%-0.9% NACL 1,000 ML IV SCH (17:39)
[2020-01-28] MEDS ORDERED: HYDROmorphone 0.5 MG/0.5 ML SYRINGE IVP PRN (18:18)
[2020-01-28] MEDS: ATORVASTATIN 40 MG TAB PO SCH (19:56)
[2020-01-28] MEDS: LORATADINE 10 MG TAB PO SCH (19:57)
[2020-01-28 23:57] LABS: Glucose,Whole Blood 142 mg/dL (75-99)
[2020-01-29] MEDS: INSULIN ASPART (NovoLOG) 100 UNIT/ML VIAL SQ SCH ×6 (00:02→21:33)
[2020-01-29] MEDS: PIPERACILLIN-TAZOBACTAM 3.375 GM in SODIUM CHLORIDE 0.9% 100 ML IVPB SCH ×2 (00:03→08:11)
[2020-01-29 00:22] LABS: Glucose,Whole Blood 138 mg/dL (75-99)
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
[2020-01-29 05:59] LABS: Glucose,Whole Blood 157 mg/dL (75-99)
[2020-01-29] MEDS: DEXTROSE 5%-0.9% NACL 1,000 ML IV SCH (06:04)
[2020-01-29] MEDS: LEVOTHYROXINE 50 MCG TAB PO SCH (06:19)
[2020-01-29 07:25] LABS: Basophils % (A) 0 %; Eosinophils # (A) 0.4 k/uL (0-0.7); Eosinophils % (A) 5 %; HGB 11.4 gm/dL (13.0-17.5); Hypochromasia Slight; Lymphocytes % (A) 12 %; MCH 28.5 pg (25.0-35.0); MCV 95.1 fL (80.0-100.0); Mean Platelet Volume 6.9; Monocytes # (A) 0.5 k/uL (0-1.0); Monocytes % (A) 6 %; Neutrophils % (A) 75 %; Platelet Count 400 k/uL (150-450); RBC 3.99 m/uL (4.30-5.90)
[2020-01-29 07:34] LABS: African American GFR (CKD) >90 (>60 ml/min/1.73 sqM); Anion Gap 4 mmol/L; Blood Urea Nitrogen 8 mg/dL (9-20); Calcium 9.4 mg/dL (8.4-10.2); Carbon Dioxide 25 mmol/L (22-30); Chloride 118 mmol/L (98-107); Glucose 167 mg/dL (74-99); Non-African American GFR(CKD) >90 (>60 ml/min/1.73 sqM); Potassium 3.4 mmol/L (3.5-5.1); Sodium 147 mmol/L (137-145)
[2020-01-29] MEDS: SYMBICORT 160-4.5 MCG INHALER INHALATION SCH ×2 (07:54→20:17)
[2020-01-29] MEDS: DICYCLOMINE 10 MG CAP PO SCH ×2 (08:12→21:32)
[2020-01-29] MEDS: POTASSIUM CHLORIDE ER 10 MEQ TAB.ER.PRT PO SCH (08:12)
[2020-01-29] MEDS: PANTOPRAZOLE 40 MG/10 ML VIAL IVP SCH (08:12)
[2020-01-29] MEDS: TOPIRAMATE 100 MG TAB PO SCH (08:12)
[2020-01-29] MEDS: MULTIVITAMINS, THERA 1 EACH TAB PO SCH (08:12)
--- NOTE | 2020-01-29 11:18 | P.PN ---
Progress Note - Text Progress Note Date: 01/29/20 The patient has a history of prostate cancer. He had p prostate cancer surgery and radiation therapy in the past at another institution. I have cared for him for many years. He has had artificial sphincters that eventually failed. This is outlined in ' note. The patient has a suprapubic tube but still leaks per urethra. We talked years ago about a supravesical urinary diversion but he declined. His daughter is question whether this can be done. At present he is not a surgical candidate for major bowel surgery which is what this would entail.
--- NOTE | 2020-01-29 11:45 | FL ---
EXAMINATION TYPE: FL barium swallow w video DATE OF EXAM: 01/29/2020 COMPARISON: NONE HISTORY: Reevaluate possible aspiration TECHNIQUE: Fluoroscopy. FINDINGS: Fluoroscopic guidance was provided for the procedure performed in conjunction with the [facility] pathology department. Please see complete report forthcoming from the Speech Pathology departmen t. Various consistencies from thin liquid to solids were administered. Fluoroscopy time 1 minute 41 seconds. Number of images: 0. Aspiration occurred with thin liquids. Prompt coughing following aspiration. Minimal transient penetration with nectar thick liquids was observed. No aspiration with nectar thick liquids was evident. Transit was improved with chin tuck method. There is a large amount of pooling within the vallecula w ith multiple consistencies. No aspiration or penetration was evident with pudding thick and honey thick consistencies. There is delay in transit. IMPRESSION: 1. Aspiration with thin liquids. 2. Minimal transient penetration with nectar thick liquids. 3. Remaining consistencies were without aspiration or penetration. 4. Pooling within the vallecula. 5. Delayed initiation of swallowing
[2020-01-29 11:52] LABS: Glucose,Whole Blood 215 mg/dL (75-99)
[2020-01-29] MEDS ORDERED: Potassium Replacement Protocol 1 EACH MISC MISCELLANE PRN ×2 (13:54→14:57)
[2020-01-29] MEDS: SODIUM CHLORIDE 0.45% 1,000 ML IV SCH (14:46)
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
[2020-01-29] MEDS: MEROPENEM 1 GM in SODIUM CHLORIDE 0.9% 100 ML IVPB SCH (17:09)
[2020-01-29 17:10] LABS: Glucose,Whole Blood 213 mg/dL (75-99)
[2020-01-29] MEDS: POTASSIUM CHLORIDE 10 MEQ in WATER FOR INJECTION 1 100ML.BAG IVPB SCH ×3 (18:27→23:39)
[2020-01-29 20:43] LABS: Glucose,Whole Blood 214 mg/dL (75-99)
[2020-01-29] MEDS: LORATADINE 10 MG TAB PO SCH (21:32)
[2020-01-29] MEDS: ATORVASTATIN 40 MG TAB PO SCH (21:32)
[2020-01-30 00:33] LABS: Amorphous Sediment,Urine Rare /hpf; Mucus,Urine Rare /hpf; RBC,Urine 162 /hpf (0-5); Squamous Epithelial Cell,Urine <1 /hpf (0-4); WBC,Urine 14 /hpf (0-5)
[2020-01-30 00:34] LABS: Appearance,Urine Cloudy (Clear); Bilirubin,Urine Negative (Negative); Blood,Urine Large (Negative); Color,Urine Yellow; Glucose,Urine (UA) 1+ (Negative); Ketones,Urine 1+ (Negative); Leukocyte Esterase,Urine Negative (Negative); Nitrite,Urine Negative (Negative); Protein,Urine 1+ (Negative); Specific Gravity,Urine 1.005 (1.001-1.035); Urobilinogen,Urine <2.0 mg/dL (<2.0)
[2020-01-30] MEDS: MEROPENEM 1 GM in SODIUM CHLORIDE 0.9% 100 ML IVPB SCH ×3 (00:52→16:20)
[2020-01-30] MEDS: POTASSIUM CHLORIDE 10 MEQ in WATER FOR INJECTION 1 100ML.BAG IVPB SCH (02:40)
[2020-01-30] MEDS ORDERED: FUROSEMIDE 10 MG/ML 2 ML VIAL IV STA (03:02)
--- NOTE | 2020-01-30 03:34 | CONS ---
CONSULTATION DATE OF SERVICE: 01/29/2020 REASON FOR CONSULTATION: Multidrug resistant urinary tract infection. HISTORY OF PRESENT ILLNESS: The patient is an 84-year-old male with a past medical history significant for urinary tract infection with a chronic indwelling Kwan catheter. The patient has been brought into the ER at [facility] on January 25, 2020 for evaluation of feeling weak and did have a fall on the day of presentation to hospital. Patient's son noticed the patient was having some mental status changes that had been going on for the last few weeks. The patient denies having any headache or focal weakness. No chest pain, shortness of breath or cough. No vomiting or diarrhea. On arrival to the ER, the patient has been afebrile. The patient did have white count of 16.6. He was noticed to have a positive UA with large leukocyte esterase, more than 182 WBC. The patient has been treated with Zosyn. Urine has been finalized with E coli and multidrug resistant Klebsiella pneumonia that is CRE. Infectious Disease was consulted today for further management of his antibiotic therapy. The patient mentioned that his catheter has been recently change, but not with this admission, but patient is not a very good historian. REVIEW OF SYSTEMS: Positive points have been mentioned in HPI. Rest of systems are negative. PAST MEDICAL HISTORY: His past medical history is significant for prostate cancer, history of urinary retention requiring suprapubic catheter, atrial fibrillation, asthma, COPD, TIA, dementia, diabetes mellitus, DVT, gastroesophageal reflux disease, hyperlipidemia, hypertension, sleep apnea. PAST SURGICAL HISTORY: Prostatectomy, tonsillectomy. SOCIAL HISTORY: Remote history of smoking. No drinking or drug use. FAMILY HISTORY: Father with history of colon cancer. ALLERGIES: No known drug allergies. MEDICATIONS: Medications include the patient is currently on Lipitor, Symbicort, Bentyl, Neurontin, NovoLog, Synthroid, Claritin, Protonix, K-Dur, Requip and Zosyn. PHYSICAL EXAMINATION: Blood pressure 154/56, pulse of 76 temperature 97.6. He is 95% on room air. General description is an elderly male lying in bed in no distress. No tachypnea or accessory muscle of respiration use. HEENT EXAMINATION: Shows pallor. No scleral icterus. Oral mucous membrane is dry. No pharyngeal erythema or thrush. NECK: Trachea central. No thyromegaly. LUNGS: Unlabored breathing, clear to auscultation anteriorly. No wheeze or crackle. HEART: S1, S2. Regular rate and rhythm. ABDOMEN: Soft, no tenderness. No rigidity. EXTREMITIES: No edema of feet. SKIN EXAMINATION: No rash or mass palpable. NEUROLOGICALLY: Awake, alert, oriented x3. Mood and affect normal. LABS: Hemoglobin 11.4, white count 8, admission white count 16.6. BUN of 8, creatinine 0.49. Urine has been positive. DIAGNOSTIC IMPRESSION AND PLAN: Patient admitted to hospital with generalized weakness and falls in this patient who did have a positive UA and did have elevated white count likely symptomatic urinary tract infection with urine has been finalized with an Escherichia coli that is sensitive pathogen. However, Klebsiella has been multidrug resistant, possibly the patient has been symptomatic from the Escherichia coli has overall improvement in his symptoms and resolution of leukocytosis with the Zosyn. PLAN: 1. Request a change of his suprapubic catheter and obtain urine culture from the new Kwan. 2. Discontinue Zosyn. 3. Meropenem 1 gram q.8 hours. 4. We will follow on his clinical condition and repeat culture to further adjust medication if needed. Thank you for this consultation. Will follow this patient along with you. MMODL / IJN: [id number] /
[2020-01-30] MEDS: LEVOTHYROXINE 50 MCG TAB PO SCH (05:58)
[2020-01-30 06:55] LABS: Glucose,Whole Blood 134 mg/dL (75-99)
[2020-01-30] MEDS: SYMBICORT 160-4.5 MCG INHALER INHALATION SCH ×2 (07:29→19:09)
[2020-01-30 07:42] LABS: Basophils % (A) 0 %; Eosinophils # (A) 0.5 k/uL (0-0.7); Eosinophils % (A) 6 %; HCT 36.5 % (39.0-53.0); HGB 11.2 gm/dL (13.0-17.5); Hypochromasia Slight; Lymphocytes # (A) 1.5 k/uL (1.0-4.8); Lymphocytes % (A) 18 %; MCH 28.9 pg (25.0-35.0); MCHC 30.6 g/dL (31.0-37.0); MCV 94.5 fL (80.0-100.0); Monocytes # (A) 0.6 k/uL (0-1.0); Monocytes % (A) 8 %; Neutrophils # (A) 5.3 k/uL (1.3-7.7); Neutrophils % (A) 67 %; Platelet Count 384 k/uL (150-450); RBC 3.86 m/uL (4.30-5.90); RDW 13.9 % (11.5-15.5); WBC 7.9 k/uL (3.8-10.6)
[2020-01-30 07:52] LABS: African American GFR (CKD) >90 (>60 ml/min/1.73 sqM); Anion Gap 3 mmol/L; Blood Urea Nitrogen 7 mg/dL (9-20); Calcium 9.3 mg/dL (8.4-10.2); Carbon Dioxide 26 mmol/L (22-30); Chloride 112 mmol/L (98-107); Glucose 132 mg/dL (74-99); Non-African American GFR(CKD) >90 (>60 ml/min/1.73 sqM); Potassium 3.3 mmol/L (3.5-5.1); Sodium 141 mmol/L (137-145)
[2020-01-30] MEDS: POTASSIUM CHLORIDE ER 10 MEQ TAB.ER.PRT PO SCH (08:04)
[2020-01-30] MEDS: TOPIRAMATE 100 MG TAB PO SCH (08:04)
[2020-01-30] MEDS: FUROSEMIDE 20 MG TAB PO SCH ×2 (08:04→16:20)
[2020-01-30] MEDS: MULTIVITAMINS, THERA 1 EACH TAB PO SCH (08:04)
[2020-01-30] MEDS: DICYCLOMINE 10 MG CAP PO SCH ×2 (08:04→20:36)
[2020-01-30] MEDS: PANTOPRAZOLE 40 MG/10 ML VIAL IVP SCH (08:04)
[2020-01-30] MEDS: INSULIN ASPART (NovoLOG) 100 UNIT/ML VIAL SQ SCH ×4 (08:05→20:36)
[2020-01-30 11:19] LABS: Glucose,Whole Blood 230 mg/dL (75-99)
[2020-01-30] MEDS ORDERED: Magnesium Replacement Protocol 1 EACH MISC MISCELLANE PRN (15:51)
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
[2020-01-30] MEDS: POTASSIUM CHLORIDE ER 20 MEQ TAB.ER PO SCH ×2 (16:20→17:53)
[2020-01-30] MEDS: SODIUM CHLORIDE 0.45% 1,000 ML IV SCH (16:52)
[2020-01-30 16:57] LABS: Glucose,Whole Blood 208 mg/dL (75-99)
[2020-01-30 20:34] LABS: Glucose,Whole Blood 162 mg/dL (75-99)
[2020-01-30] MEDS: LORATADINE 10 MG TAB PO SCH (20:36)
[2020-01-30] MEDS: ATORVASTATIN 40 MG TAB PO SCH (20:36)
[2020-01-31] MEDS: MEROPENEM 1 GM in SODIUM CHLORIDE 0.9% 100 ML IVPB SCH ×4 (00:06→23:46)
--- NOTE | 2020-01-31 00:22 | PN ---
PROGRESS NOTE DATE OF SERVICE: 01/30/2020 REASON FOR FOLLOWUP: Multidrug resistant Klebsiella urinary tract infection. INTERVAL HISTORY: The patient is currently afebrile. The patient is breathing comfortably. He seemed to be more awake and alert. No chest pain, no cough. No abdominal pain or diarrhea. PHYSICAL EXAMINATION: Blood pressure 136/51 with a pulse of 74, temperature 98. He is 94% on room air. General description is an elderly male lying in bed in no distress. RESPIRATORY SYSTEM: Unlabored breathing, clear to auscultation anteriorly. HEART: S1, S2. Regular rate and rhythm. ABDOMEN: Soft, no tenderness. LABS: Hemoglobin 11.2, white count 7.9, BUN of 7 and creatinine 0.46. Repeat urine cultures currently pending. DIAGNOSTIC IMPRESSION AND PLAN: Patient with CRE Klebsiella catheter-associated urinary tract infection. The patient's urine culture after change of Kwan catheter is currently pending. We will keep the patient on meropenem while waiting for the culture to finalize. Continue with supportive care. MMODL / IJN: [id number] /
[2020-01-31] MEDS: LEVOTHYROXINE 50 MCG TAB PO SCH (05:26)
[2020-01-31 07:03] LABS: Glucose,Whole Blood 148 mg/dL (75-99)
[2020-01-31] MEDS: INSULIN ASPART (NovoLOG) 100 UNIT/ML VIAL SQ SCH ×4 (07:58→21:57)
[2020-01-31] MEDS: POTASSIUM CHLORIDE ER 10 MEQ TAB.ER.PRT PO SCH (07:58)
[2020-01-31] MEDS: MULTIVITAMINS, THERA 1 EACH TAB PO SCH (07:58)
[2020-01-31] MEDS: DICYCLOMINE 10 MG CAP PO SCH ×2 (07:58→21:56)
[2020-01-31] MEDS: FUROSEMIDE 20 MG TAB PO SCH ×2 (07:58→15:35)
[2020-01-31] MEDS: TOPIRAMATE 100 MG TAB PO SCH (07:59)
[2020-01-31] MEDS: PANTOPRAZOLE 40 MG/10 ML VIAL IVP SCH (07:59)
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
[2020-01-31 11:24] LABS: Glucose,Whole Blood 197 mg/dL (75-99)
[2020-01-31] MEDS: SYMBICORT 160-4.5 MCG INHALER INHALATION SCH ×2 (12:35→19:09)
--- NOTE | 2020-01-31 14:48 | XR ---
EXAMINATION TYPE: XR chest 2V DATE OF EXAM: 01/31/2020 COMPARISON: 01/25/2020 TECHNIQUE: PA and lateral views submitted. HISTORY: Cough and weakness FINDINGS: Large area of consolidation or mass in the left upper lobe noted. There is a area of consolidation th e left lower lobe with small effusion. Hyperinflation suggests COPD. Heart size normal. Atherosclerot ic change aorta. No pneumothorax. Diffuse osteopenia and arthropathy of the shoulders. IMPRESSION: 1. Left lower lobe infiltrate correlate for pneumonia. 2. Left upper lobe lingular segment consolidation could represent mass or pneumonia.
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
--- NOTE | 2020-01-31 16:04 | PN ---
PROGRESS NOTE DATE OF SERVICE: 01/31/2020 REASON FOR FOLLOWUP: CRE urinary tract infection. INTERVAL HISTORY: The patient is currently afebrile. The patient is breathing comfortably. Denies having any chest pain. Did have some cough. No nausea or vomiting. No abdominal pain or diarrhea. PHYSICAL EXAMINATION: Blood pressure 142/63 with a pulse of 81, temperature 98.1. He is 92% on room air. General description is an elderly male up in the bed in no distress. RESPIRATORY SYSTEM: Unlabored breathing. Clear to auscultation anteriorly. HEART: S1, S2. Regular rate and rhythm. ABDOMEN: Soft. No tenderness. LABS: Repeat urine is so far negative. Sputum showing presumptive Staph aureus. DIAGNOSTIC IMPRESSION AND PLAN: 1. 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 Meropenem will be discontinued. 2. Patient with positive sputum culture with Staphylococcus aureus. Will wait for the x-ray to finalize. If any evidence of pneumonia, vancomycin will be added. Continue supportive care. MMODL / IJN: [id number] /
[2020-01-31 17:12] LABS: Glucose,Whole Blood 159 mg/dL (75-99)
[2020-01-31] MEDS: SODIUM CHLORIDE 0.45% 1,000 ML IV SCH (18:01)
[2020-01-31 20:24] LABS: Glucose,Whole Blood 186 mg/dL (75-99)
[2020-01-31] MEDS: LORATADINE 10 MG TAB PO SCH (21:56)
[2020-01-31] MEDS: ATORVASTATIN 40 MG TAB PO SCH (21:57)
[2020-01-31] MEDS ORDERED: VANCOMYCIN IV PER PHARMACY 1 EACH MISC MISCELLANE PRN (23:53)
[2020-02-01] MEDS: VANCOMYCIN 1,000 MG in SODIUM CHLORIDE 0.9% 250 ML IVPB SCH ×2 (01:56→17:24)
[2020-02-01] MEDS: LEVOTHYROXINE 50 MCG TAB PO SCH (05:43)
[2020-02-01 07:31] LABS: Glucose,Whole Blood 125 mg/dL (75-99)
[2020-02-01] MEDS: INSULIN ASPART (NovoLOG) 100 UNIT/ML VIAL SQ SCH ×4 (07:58→21:10)
[2020-02-01 08:07] LABS: Basophils % (A) 0 %; Eosinophils # (A) 0.4 k/uL (0-0.7); Eosinophils % (A) 5 %; HCT 37.5 % (39.0-53.0); HGB 11.4 gm/dL (13.0-17.5); Hypochromasia Slight; Lymphocytes # (A) 1.5 k/uL (1.0-4.8); Lymphocytes % (A) 17 %; MCH 28.5 pg (25.0-35.0); MCHC 30.4 g/dL (31.0-37.0); Mean Platelet Volume 6.9; Monocytes # (A) 0.5 k/uL (0-1.0); Monocytes % (A) 6 %; Neutrophils # (A) 5.9 k/uL (1.3-7.7); Neutrophils % (A) 70 %; Platelet Count 409 k/uL (150-450); RBC 3.99 m/uL (4.30-5.90); RDW 14.1 % (11.5-15.5); WBC 8.5 k/uL (3.8-10.6)
[2020-02-01] MEDS: SYMBICORT 160-4.5 MCG INHALER INHALATION SCH ×2 (08:10→21:59)
[2020-02-01] MEDS: POTASSIUM CHLORIDE ER 10 MEQ TAB.ER.PRT PO SCH (08:18)
[2020-02-01] MEDS: PANTOPRAZOLE 40 MG/10 ML VIAL IVP SCH (08:18)
[2020-02-01] MEDS: TOPIRAMATE 100 MG TAB PO SCH (08:18)
[2020-02-01] MEDS: MULTIVITAMINS, THERA 1 EACH TAB PO SCH (08:18)
[2020-02-01] MEDS: DICYCLOMINE 10 MG CAP PO SCH ×2 (08:18→21:10)
[2020-02-01] MEDS: FUROSEMIDE 20 MG TAB PO SCH ×2 (08:18→15:54)
[2020-02-01 08:26] LABS: African American GFR (CKD) >90 (>60 ml/min/1.73 sqM); Anion Gap 5 mmol/L; Blood Urea Nitrogen 8 mg/dL (9-20); Calcium 9.6 mg/dL (8.4-10.2); Carbon Dioxide 26 mmol/L (22-30); Chloride 109 mmol/L (98-107); Glucose 131 mg/dL (74-99); Non-African American GFR(CKD) >90 (>60 ml/min/1.73 sqM); Sodium 140 mmol/L (137-145)
[2020-02-01] MEDS: MEROPENEM 1 GM in SODIUM CHLORIDE 0.9% 100 ML IVPB SCH ×2 (09:50→15:54)
[2020-02-01 11:42] LABS: Glucose,Whole Blood 225 mg/dL (75-99)
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
[2020-02-01] MEDS: SENNOSIDES-DOCUSATE SODIUM 1 EACH TAB PO SCH ×2 (12:42→21:10)
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
[2020-02-01 15:19] VITALS: BMI 20.7
[2020-02-01 17:13] LABS: Glucose,Whole Blood 138 mg/dL (75-99)
[2020-02-01] MEDS: SODIUM CHLORIDE 0.45% 1,000 ML IV SCH (17:28)
[2020-02-01 20:16] LABS: Glucose,Whole Blood 191 mg/dL (75-99)
[2020-02-01] MEDS: LORATADINE 10 MG TAB PO SCH (21:09)
[2020-02-01] MEDS: ATORVASTATIN 40 MG TAB PO SCH (21:10)
--- NOTE | 2020-02-02 03:52 | PN ---
PROGRESS NOTE DATE OF SERVICE: 02/01/2020 REASON FOR FOLLOWUP: 1. Positive urine culture. 2. Pneumonia. INTERVAL HISTORY: The patient is currently afebrile. The patient has been complaining of some shortness of breath. He did have some cough with occasional sputum. No nausea, no vomiting. No abdominal pain or diarrhea. PHYSICAL EXAMINATION: Blood pressure 141/67 with a pulse of 81, temperature 97.1. He is 93% on room air. General description is an elderly male up in the chair in no distress. RESPIRATORY SYSTEM: Unlabored breathing, decreased intensity of breath sounds. HEART: S1, S2. Regular rate and rhythm. ABDOMEN: Soft, no tenderness. LABS: White count 8.5, creatinine 0.57. Repeat urine culture negative. DIAGNOSTIC IMPRESSION AND PLAN: 1. Patient with positive culture with CRE in this patient with possible cystitis versus colonization of his Kwan. As the repeat urine is negative, meropenem will be discontinued. 2. The patient with pneumonia. Sputum has been MRSA. Vancomycin has been added to continue and monitor clinical course closely. MMODL / IJN: [id number] /
[2020-02-02] MEDS: LEVOTHYROXINE 50 MCG TAB PO SCH (05:42)
[2020-02-02] MEDS: SYMBICORT 160-4.5 MCG INHALER INHALATION SCH ×2 (07:16→19:29)
[2020-02-02 07:31] LABS: Glucose,Whole Blood 143 mg/dL (75-99)
[2020-02-02 08:01] LABS: Basophils % (A) 0 %; Eosinophils # (A) 0.4 k/uL (0-0.7); Eosinophils % (A) 4 %; HCT 37.1 % (39.0-53.0); HGB 11.5 gm/dL (13.0-17.5); Hypochromasia Slight; Lymphocytes # (A) 1.8 k/uL (1.0-4.8); Lymphocytes % (A) 19 %; MCH 29.1 pg (25.0-35.0); MCV 93.8 fL (80.0-100.0); Mean Platelet Volume 6.7; Monocytes # (A) 0.6 k/uL (0-1.0); Monocytes % (A) 6 %; Neutrophils # (A) 6.7 k/uL (1.3-7.7); Neutrophils % (A) 69 %; Platelet Count 421 k/uL (150-450); RBC 3.95 m/uL (4.30-5.90); RDW 14.1 % (11.5-15.5); WBC 9.7 k/uL (3.8-10.6)
[2020-02-02 08:10] LABS: Chloride 112 mmol/L (98-107)
[2020-02-02 08:12] LABS: African American GFR (CKD) >90 (>60 ml/min/1.73 sqM); Anion Gap 4 mmol/L; Blood Urea Nitrogen 11 mg/dL (9-20); Calcium 9.6 mg/dL (8.4-10.2); Carbon Dioxide 24 mmol/L (22-30); Glucose 153 mg/dL (74-99); Non-African American GFR(CKD) >90 (>60 ml/min/1.73 sqM); Potassium 3.6 mmol/L (3.5-5.1); Sodium 140 mmol/L (137-145)
[2020-02-02] MEDS: PANTOPRAZOLE 40 MG/10 ML VIAL IVP SCH (09:09)
[2020-02-02] MEDS: POTASSIUM CHLORIDE ER 10 MEQ TAB.ER.PRT PO SCH (09:10)
[2020-02-02] MEDS: INSULIN ASPART (NovoLOG) 100 UNIT/ML VIAL SQ SCH ×4 (09:10→21:43)
[2020-02-02] MEDS: DICYCLOMINE 10 MG CAP PO SCH ×2 (09:10→21:38)
[2020-02-02] MEDS: SENNOSIDES-DOCUSATE SODIUM 1 EACH TAB PO SCH ×2 (09:10→21:38)
[2020-02-02] MEDS: FUROSEMIDE 20 MG TAB PO SCH ×2 (09:10→18:00)
[2020-02-02] MEDS: MULTIVITAMINS, THERA 1 EACH TAB PO SCH (09:10)
[2020-02-02] MEDS: TOPIRAMATE 100 MG TAB PO SCH (09:11)
[2020-02-02] MEDS: VANCOMYCIN 1,000 MG in SODIUM CHLORIDE 0.9% 250 ML IVPB SCH (09:24)
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
[2020-02-02 11:40] LABS: Glucose,Whole Blood 166 mg/dL (75-99)
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
[2020-02-02 17:26] LABS: Glucose,Whole Blood 230 mg/dL (75-99)
[2020-02-02] MEDS: SODIUM CHLORIDE 0.45% 1,000 ML IV SCH (18:01)
[2020-02-02 20:36] LABS: Glucose,Whole Blood 161 mg/dL (75-99)
[2020-02-02] MEDS: LORATADINE 10 MG TAB PO SCH (21:37)
[2020-02-02] MEDS: ATORVASTATIN 40 MG TAB PO SCH (21:38)
[2020-02-02] MEDS: VANCOMYCIN 1,250 MG in SODIUM CHLORIDE 0.9% 250 ML IVPB SCH (21:44)
--- NOTE | 2020-02-02 23:31 | PN ---
PROGRESS NOTE DATE OF SERVICE: 02/02/2020. REASON FOR FOLLOWUP: 1. Positive urine culture. 2. ( ) pneumonia. INTERVAL HISTORY: The patient is current afebrile. The patient is breathing more comfortably. Denies any chest pain. ( ) no abdominal pain, no diarrhea. EXAM: Blood pressure ( ) with a pulse of ( ). He is 99% on room air. General description is a elderly male lying in bed in no distress. Respiratory system: Unlabored breathing, decreased breath sounds at the base. Heart S1, S2. Regular rate and rhythm. Abdomen soft, no tenderness. LABS: Hemoglobin is ( ), BUN of 11, creatinine 0.58. DIAGNOSTIC IMPRESSION AND PLAN: 1. Patient with positive culture with vancomycin-resistant Enterococcus, possible cystitis versus colonization of his Kwan. Repeat urine culture has been negative. Meropenem discontinued. 2. Patient with MRSA pneumonia, covered with vancomycin pharmacy to dose and monitor clinical course closely. MMODL / IJN: [id number] /
[2020-02-03] MEDS: LEVOTHYROXINE 50 MCG TAB PO SCH (06:15)
[2020-02-03 07:31] LABS: Glucose,Whole Blood 157 mg/dL (75-99)
[2020-02-03] MEDS ORDERED: VANCOMYCIN TROUGH DUE 1 EACH MISC MISCELLANE ONE (08:00)
[2020-02-03] MEDS: INSULIN ASPART (NovoLOG) 100 UNIT/ML VIAL SQ SCH ×4 (08:53→22:58)
[2020-02-03] MEDS: FUROSEMIDE 20 MG TAB PO SCH ×2 (08:56→18:02)
[2020-02-03] MEDS: MULTIVITAMINS, THERA 1 EACH TAB PO SCH (08:56)
[2020-02-03] MEDS: SENNOSIDES-DOCUSATE SODIUM 1 EACH TAB PO SCH ×2 (08:56→22:32)
[2020-02-03] MEDS: DICYCLOMINE 10 MG CAP PO SCH ×2 (08:56→22:32)
[2020-02-03] MEDS: POTASSIUM CHLORIDE ER 10 MEQ TAB.ER.PRT PO SCH (08:56)
[2020-02-03] MEDS: TOPIRAMATE 100 MG TAB PO SCH (08:57)
[2020-02-03] MEDS: PANTOPRAZOLE 40 MG/10 ML VIAL IVP SCH (08:57)
[2020-02-03] MEDS: SYMBICORT 160-4.5 MCG INHALER INHALATION SCH ×2 (09:15→19:10)
[2020-02-03 09:49] LABS: Basophils % (A) 0 %; Eosinophils # (A) 0.4 k/uL (0-0.7); Eosinophils % (A) 4 %; HCT 38.1 % (39.0-53.0); Hypochromasia Slight; Lymphocytes % (A) 19 %; MCH 29.9 pg (25.0-35.0); MCHC 31.4 g/dL (31.0-37.0); MCV 95.3 fL (80.0-100.0); Mean Platelet Volume 6.9; Monocytes # (A) 0.6 k/uL (0-1.0); Monocytes % (A) 5 %; Neutrophils # (A) 7.6 k/uL (1.3-7.7); Neutrophils % (A) 71 %; Platelet Count 433 k/uL (150-450); RDW 13.9 % (11.5-15.5); WBC 10.8 k/uL (3.8-10.6)
[2020-02-03 09:53] LABS: African American GFR (CKD) >90 (>60 ml/min/1.73 sqM); Anion Gap 6 mmol/L; Blood Urea Nitrogen 14 mg/dL (9-20); Calcium 10.1 mg/dL (8.4-10.2); Carbon Dioxide 27 mmol/L (22-30); Chloride 108 mmol/L (98-107); Glucose 176 mg/dL (74-99); Non-African American GFR(CKD) 88 (>60 ml/min/1.73 sqM); Sodium 141 mmol/L (137-145)
[2020-02-03] MEDS: VANCOMYCIN 1,250 MG in SODIUM CHLORIDE 0.9% 250 ML IVPB SCH ×2 (09:53→22:24)
[2020-02-03 12:58] LABS: Glucose,Whole Blood 225 mg/dL (75-99)
[2020-02-03] MEDS: SODIUM CHLORIDE 0.45% 1,000 ML IV SCH (15:32)
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
[2020-02-03 17:29] LABS: Glucose,Whole Blood 132 mg/dL (75-99)
[2020-02-03 20:37] LABS: Glucose,Whole Blood 179 mg/dL (75-99)
[2020-02-03] MEDS: ATORVASTATIN 40 MG TAB PO SCH (22:32)
[2020-02-03] MEDS: LORATADINE 10 MG TAB PO SCH (22:32)
--- NOTE | 2020-02-04 00:08 | PN ---
PROGRESS NOTE DATE OF SERVICE: 02/03/2020 REASON FOR FOLLOWUP: MRSA pneumonia. INTERVAL HISTORY: Patient is currently afebrile. The patient is breathing more comfortably. The patient denies having any chest pain, shortness of breath. Did have some cough. No sputum. No abdominal pain or diarrhea. PHYSICAL EXAMINATION: Blood pressure 131/60 with a pulse of 96, temp 97.7. He is 99% on room air. General description is an elderly male up in the chair in no distress. Respiratory system: Unlabored breathing, decreased breath sounds at bases. No wheeze. Heart S1, S2. Regular rate and rhythm. Abdomen soft, no tenderness. LABS: Hemoglobin is , creatinine 0.68. DIAGNOSTIC IMPRESSION AND PLAN: 1. Patient with MRSA pneumonia for the patient is currently on vancomycin to continue. Monitor clinical course closely. 2. Patient is VRE positive urine culture likely . 3. Repeat urine culture has been negative. Currently off the meropenem. MMODL / IJN: [id number] /
[2020-02-04] MEDS: LEVOTHYROXINE 50 MCG TAB PO SCH (06:06)
[2020-02-04 07:08] LABS: Glucose,Whole Blood 147 mg/dL (75-99)
[2020-02-04 07:20] LABS: African American GFR (CKD) >90 (>60 ml/min/1.73 sqM); Non-African American GFR(CKD) >90 (>60 ml/min/1.73 sqM)
[2020-02-04] MEDS: SYMBICORT 160-4.5 MCG INHALER INHALATION SCH ×2 (07:22→19:55)
[2020-02-04] MEDS: INSULIN ASPART (NovoLOG) 100 UNIT/ML VIAL SQ SCH ×4 (08:20→21:29)
[2020-02-04] MEDS: VANCOMYCIN 1,250 MG in SODIUM CHLORIDE 0.9% 250 ML IVPB SCH ×2 (08:21→20:31)
[2020-02-04] MEDS: PANTOPRAZOLE 40 MG/10 ML VIAL IVP SCH (08:21)
[2020-02-04] MEDS: DICYCLOMINE 10 MG CAP PO SCH ×2 (08:22→20:33)
[2020-02-04] MEDS: FUROSEMIDE 20 MG TAB PO SCH ×2 (08:22→16:57)
[2020-02-04] MEDS: MULTIVITAMINS, THERA 1 EACH TAB PO SCH (08:22)
[2020-02-04] MEDS: TOPIRAMATE 100 MG TAB PO SCH (08:22)
[2020-02-04] MEDS: SENNOSIDES-DOCUSATE SODIUM 1 EACH TAB PO SCH ×2 (08:22→20:33)
[2020-02-04] MEDS: POTASSIUM CHLORIDE ER 10 MEQ TAB.ER.PRT PO SCH (08:22)
[2020-02-04 11:25] LABS: Glucose,Whole Blood 226 mg/dL (75-99)
[2020-02-04] MEDS: SODIUM CHLORIDE 0.45% 1,000 ML IV SCH (12:43)
[2020-02-04 16:56] LABS: Glucose,Whole Blood 193 mg/dL (75-99)
[2020-02-04 19:16] LABS: Glucose,Whole Blood 190 mg/dL (75-99)
[2020-02-04] MEDS: LORATADINE 10 MG TAB PO SCH (20:33)
[2020-02-04] MEDS: ATORVASTATIN 40 MG TAB PO SCH (20:38)
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
[2020-02-05] MEDS: LEVOTHYROXINE 50 MCG TAB PO SCH (05:15)
--- NOTE | 2020-02-05 07:02 | PN ---
PROGRESS NOTE DATE OF SERVICE: 02/04/2020 REASON FOR FOLLOWUP: MRSA pneumonia. INTERVAL HISTORY: The patient is currently afebrile. The patient is breathing comfortably. Denies having any chest pain or shortness of breath. Occasional cough. No nausea, no vomiting. No abdominal pain or diarrhea. PHYSICAL EXAMINATION: Blood pressure 128/62 with a pulse of 81, temperature 97.6. He is 96% on room air. General description is an elderly male lying in bed in no distress. RESPIRATORY SYSTEM: Unlabored breathing, clear to auscultation anteriorly. HEART: S1, S2. Regular rate and rhythm. ABDOMEN: Soft, no tenderness. LABS: No new labs have been obtained today. DIAGNOSTIC IMPRESSION AND PLAN: 1. Patient with CRE Klebsiella urinary tract infection that has been adequately treated. Repeat urine is negative. 2. Patient with MRSA pneumonia on vancomycin that can be transitioned to Zyvox 600 mg p.o. twice a day for about a week to finish the course of therapy. MMODL / IJN: [id number] / MTDD
[2020-02-05 07:10] LABS: Glucose,Whole Blood 131 mg/dL (75-99)
[2020-02-05] MEDS: SYMBICORT 160-4.5 MCG INHALER INHALATION SCH (07:19)
[2020-02-05] MEDS ORDERED: VANCOMYCIN TROUGH DUE 1 EACH MISC MISCELLANE ONE (08:00)
[2020-02-05 08:48] LABS: African American GFR (CKD) >90 (>60 ml/min/1.73 sqM); Non-African American GFR(CKD) 87 (>60 ml/min/1.73 sqM)
[2020-02-05] MEDS: FUROSEMIDE 20 MG TAB PO SCH (08:55)
[2020-02-05] MEDS: MULTIVITAMINS, THERA 1 EACH TAB PO SCH (08:55)
[2020-02-05] MEDS: INSULIN ASPART (NovoLOG) 100 UNIT/ML VIAL SQ SCH ×2 (08:55→13:02)
[2020-02-05] MEDS: PANTOPRAZOLE 40 MG/10 ML VIAL IVP SCH (08:55)
[2020-02-05] MEDS: DICYCLOMINE 10 MG CAP PO SCH (08:55)
[2020-02-05] MEDS: TOPIRAMATE 100 MG TAB PO SCH (08:56)
[2020-02-05] MEDS: SENNOSIDES-DOCUSATE SODIUM 1 EACH TAB PO SCH (08:56)
[2020-02-05] MEDS: POTASSIUM CHLORIDE ER 10 MEQ TAB.ER.PRT PO SCH (08:56)
[2020-02-05] MEDS ORDERED: ALPRAZolam 0.25 MG TAB PO PRN (10:20)
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
[2020-02-05 12:16] LABS: Glucose,Whole Blood 193 mg/dL (75-99)
[2020-02-05 12:39] VITALS: BP 154/74; PULSE 75; RESP 18; TEMP 97.5
[2020-02-05] MEDS: SODIUM CHLORIDE 0.45% 1,000 ML IV SCH (12:57)
[2020-02-05] MEDS ORDERED: VANCOMYCIN 1,250 MG in SODIUM CHLORIDE 0.9% 250 ML IVPB SCH (14:00)
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
--- NOTE | 2020-02-05 16:42 | P.PN ---
Progress Note - Text Progress Note Date: 02/05/20 REASON FOR FOLLOWUP: MRSA pneumonia. INTERVAL HISTORY: The patient remains to be afebrile. The patient is breathing comfortably. Denies having any chest pain or shortness of breath , the patient did have minimal dry cough. No nausea, no vomiting. No abdominal pain or diarrhea. PHYSICAL EXAMINATION: Blood pressure 130/60 with a pulse of 80, temperature 97.6. He is 96% on room air. General description is an elderly male lying in bed in no distress. RESPIRATORY SYSTEM: Unlabored breathing, clear to auscultation anteriorly. HEART: S1, S2. Regular rate and rhythm. ABDOMEN: Soft, no tenderness. LABS: Reviewed DIAGNOSTIC IMPRESSION AND PLAN: 1. Patient with CRE Klebsiella urinary tract infection that has been adequately treated. Repeat urine is negative. No need for further workup for the same 2. Patient with MRSA pneumonia clinically improved on vancomycin , plan to Finish therapy with oral Zyvox 600 mg twice a day for 7 days
== END 2020-02-05 15:03 | DRG 698 ==
LOC: EC 18:22 → 5NMEDONC 20:45
PROVIDERS: ADMIT Family Medicine; ATTEND Family Medicine
PROC: 0T2BX0Z Change Drainage Device in Bladder, External Approach (ICD-10-PCS; principal; 2020-01-26)
DX: T83.510A Infection and inflammatory reaction due to cystostomy catheter, initial encounter (principal); J96.21 Acute and chronic respiratory failure with hypoxia; A41.59 Other Gram-negative sepsis; J69.0 Pneumonitis due to inhalation of food and vomit; J96.22 Acute and chronic respiratory failure with hypercapnia; A41.51 Sepsis due to Escherichia coli [E. coli]; R65.20 Severe sepsis without septic shock; G93.41 Metabolic encephalopathy; J15.212 Pneumonia due to Methicillin resistant Staphylococcus aureus; I48.20 Chronic atrial fibrillation, unspecified; J44.0 Chronic obstructive pulmonary disease with (acute) lower respiratory infection; I50.32 Chronic diastolic (congestive) heart failure; N39.0 Urinary tract infection, site not specified; Z16.21 Resistance to vancomycin; Z16.24 Resistance to multiple antibiotics; Z16.19 Resistance to other specified beta lactam antibiotics; E11.649 Type 2 diabetes mellitus with hypoglycemia without coma; I27.20 Pulmonary hypertension, unspecified; I11.0 Hypertensive heart disease with heart failure; I08.2 Rheumatic disorders of both aortic and tricuspid valves; E11.42 Type 2 diabetes mellitus with diabetic polyneuropathy; G30.9 Alzheimer's disease, unspecified; F02.80 Dementia in other diseases classified elsewhere, unspecified severity, without behavioral disturbance, psychotic disturbance, mood disturbance, and anxiety; Z20.828 Contact with and (suspected) exposure to other viral communicable diseases; E86.0 Dehydration; E87.6 Hypokalemia; S51.012A Laceration without foreign body of left elbow, initial encounter; S90.32XA Contusion of left foot, initial encounter; R13.10 Dysphagia, unspecified; R33.9 Retention of urine, unspecified; K21.9 Gastro-esophageal reflux disease without esophagitis; F32.9 Major depressive disorder, single episode, unspecified; E78.5 Hyperlipidemia, unspecified; N39.42 Incontinence without sensory awareness; N13.9 Obstructive and reflux uropathy, unspecified; R26.9 Unspecified abnormalities of gait and mobility; D64.9 Anemia, unspecified; G47.33 Obstructive sleep apnea (adult) (pediatric); K44.9 Diaphragmatic hernia without obstruction or gangrene; I83.90 Asymptomatic varicose veins of unspecified lower extremity; K57.90 Diverticulosis of intestine, part unspecified, without perforation or abscess without bleeding; M85.80 Other specified disorders of bone density and structure, unspecified site; M19.90 Unspecified osteoarthritis, unspecified site; Z91.19 Patient's noncompliance with other medical treatment and regimen; Z79.51 Long term (current) use of inhaled steroids; Z79.890 Hormone replacement therapy; Z79.84 Long term (current) use of oral hypoglycemic drugs; Z79.899 Other long term (current) drug therapy; Z90.79 Acquired absence of other genital organ(s); Z86.73 Personal history of transient ischemic attack (TIA), and cerebral infarction without residual deficits; Z86.718 Personal history of other venous thrombosis and embolism; Z85.46 Personal history of malignant neoplasm of prostate; Z92.3 Personal history of irradiation; Z86.14 Personal history of Methicillin resistant Staphylococcus aureus infection; Z91.048 Other nonmedicinal substance allergy status; Z87.440 Personal history of urinary (tract) infections; Z86.69 Personal history of other diseases of the nervous system and sense organs; Z87.81 Personal history of (healed) traumatic fracture; Z90.81 Acquired absence of spleen; Z87.39 Personal history of other diseases of the musculoskeletal system and connective tissue; Z90.89 Acquired absence of other organs; Z98.890 Other specified postprocedural states; Z98.42 Cataract extraction status, left eye; Z98.41 Cataract extraction status, right eye; W19.XXXA Unspecified fall, initial encounter; Y84.6 Urinary catheterization as the cause of abnormal reaction of the patient, or of later complication, without mention of misadventure at the time of the procedure; Y92.009 Unspecified place in unspecified non-institutional (private) residence as the place of occurrence of the external cause; Z80.0 Family history of malignant neoplasm of digestive organs; Z80.42 Family history of malignant neoplasm of prostate
CPT/HCPCS: 36415; 71046; 71250; 74230; 80048; 80053; 80202; 80306; 81001; 82565; 83735; 84484; 85025; 85610; 85730; 87040; 87070; 87077; 87086; 87186; 87205; 93005; 93306; 94640; 96361; 96365; 96366; 96375; 96376; 99291

== ENCOUNTER 2020-03-18 14:37 | Inpatient (IN) | payer MEDICARE ==
[2020-03-18] MEDS ORDERED: RX INFO: IV CONTRAST WAS GIVEN 1 EACH MISC MISCELLANE PRN (15:08)
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
--- NOTE | 2020-03-18 15:15 | XR ---
EXAMINATION TYPE: XR chest 1V portable DATE OF EXAM: 03/18/2020 COMPARISON: 01/30/2001 HISTORY: Shortness of breath TECHNIQUE: Single frontal view of the chest is obtained. FINDINGS: Diffuse hyperinflation compatible COPD. Heart size normal atherosclerotic changes. Diffuse osteopenia and arthropathy of the shoulders. Vague nodular density left costophrenic angle and incre ased infrahilar subsegmental changes involving the left lung are improved from the prior exam. IMPRESSION: 1. COPD with improving left infrahilar area of consolidation relative prior exam. Vague nodularity in the left costophrenic angle could be related to superimposed structures. CT scan has already been sc heduled.
[2020-03-18 16:14] LABS: Basophils % (A) 0 %; Eosinophils % (A) 0 %; HCT 32.9 % (39.0-53.0); HGB 10.6 gm/dL (13.0-17.5); Lymphocytes # (A) 0.7 k/uL (1.0-4.8); Lymphocytes % (A) 6 %; MCH 29.1 pg (25.0-35.0); MCHC 32.1 g/dL (31.0-37.0); MCV 90.7 fL (80.0-100.0); Mean Platelet Volume 7.7; Monocytes # (A) 0.6 k/uL (0-1.0); Monocytes % (A) 5 %; Neutrophils # (A) 9.3 k/uL (1.3-7.7); Neutrophils % (A) 86 %; Platelet Count 203 k/uL (150-450); RBC 3.62 m/uL (4.30-5.90); RDW 14.7 % (11.5-15.5); WBC 10.8 k/uL (3.8-10.6)
[2020-03-18 16:26] LABS: INR 1.1 (<1.2); Partial Thromboplastin Time 28.7 sec (22.0-30.0); Prothrombin Time 10.9 sec (9.0-12.0)
[2020-03-18 16:28] LABS: Albumin 3.1 g/dL (3.5-5.0); Bilirubin, Delta 0.4 mg/dL (0.0-0.2); Bilirubin,Unconjugated 0.2 mg/dL (0.0-1.1); Magnesium 1.9 mg/dL (1.6-2.3); Potassium 3.9 mmol/L (3.5-5.1); Total Bilirubin 0.6 mg/dL (0.2-1.3); Total Protein 6.2 g/dL (6.3-8.2)
--- NOTE | 2020-03-18 17:40 | CT ---
EXAMINATION TYPE: CT chest w con DATE OF EXAM: 03/18/2020 COMPARISON: CT chest January 26, 2020. Chest x-ray earlier today. HISTORY: Pulmonary mass vs. pulmonary infection. CT DLP: 313 mGycm. Automated Exposure Control for Dose Reduction was Utilized. TECHNIQUE: CT scan of the thorax is performed following with IV Contrast, patient injected with 80 m L of Isovue 300. FINDINGS: LUNGS: Background moderate underlying emphysematous change redemonstrated. Mild to moderate bibasilar linear scarring and/or atelectasis. Near complete interval resolution of left mid to lower lung irre gular consolidation. No suspicious residual nodules or masses. Slightly elevated left hemidiaphragm r edemonstrated. Resolution of nodular infiltrates in the right lower lung. Moderate plaque of the aort a extends into branch vessels. MEDIASTINUM: There are no greater than 1 cm hilar or mediastinal lymph nodes. No cardiomegaly or pe ricardial effusion is seen. Coronary artery calcification is redemonstrated which is noted marked of underlying coronary artery disease. Somewhat small size thyroid gland redemonstrated OTHER: Small degree of bilateral subareolar gynecomastia. IMPRESSION: Moderate emphysematous change with marked improvement in nodular consolidation right lowe r lung and near complete resolution of ill-defined consolidation left mid to lower lung. Findings con sistent with resolving acute infectious process. Correlate clinically.
[2020-03-18 18:04] LABS: Amorphous Sediment,Urine Rare /hpf; Appearance,Urine Cloudy (Clear); Bacteria,Urine Many /hpf; Bilirubin,Urine Negative (Negative); Blood,Urine Small (Negative); Color,Urine Yellow; Glucose,Urine (UA) Negative (Negative); Hyaline Casts,Urine 19 /lpf (0-2); Ketones,Urine Negative (Negative); Leukocyte Esterase,Urine Large (Negative); Mucus,Urine Occasional /hpf; Nitrite,Urine Negative (Negative); PH, Urine 5.5 (5.0-8.0); Protein,Urine 1+ (Negative); RBC,Urine 7 /hpf (0-5); Specific Gravity,Urine 1.018 (1.001-1.035); Squamous Epithelial Cell,Urine <1 /hpf (0-4); Urobilinogen,Urine <2.0 mg/dL (<2.0); WBC,Urine 54 /hpf (0-5)
[2020-03-18] MEDS ORDERED: cefTRIAXone IN SWFI 1,000 MG/10 ML SYRINGE IVP STA (18:08)
[2020-03-18] MEDS ORDERED: ACETAMINOPHEN TAB 325 MG TAB PO PRN (18:41)
[2020-03-18] MEDS ORDERED: NALOXONE 0.4 MG/ML 1 ML VIAL IV PRN (18:41)
[2020-03-18] MEDS: SODIUM CHLORIDE 0.9% 1,000 ML IV SCH (19:16)
[2020-03-19 06:50] LABS: Glucose,Whole Blood 178 mg/dL (75-99)
[2020-03-19] MEDS ORDERED: GABAPENTIN 300 MG CAP PO PRN (10:24)
[2020-03-19] MEDS ORDERED: ALPRAZolam 0.25 MG TAB PO PRN (10:24)
[2020-03-19 11:40] LABS: Glucose,Whole Blood 207 mg/dL (75-99)
[2020-03-19] MEDS: INSULIN ASPART (NovoLOG) 100 UNIT/ML VIAL SQ SCH ×3 (12:36→21:53)
[2020-03-19] MEDS: LINEZOLID 600 MG TAB PO SCH ×2 (12:37→21:53)
[2020-03-19 15:50] VITALS: BMI 19.3
[2020-03-19] MEDS ORDERED: MEROPENEM 1 GM in SODIUM CHLORIDE 0.9% 100 ML IVPB ONE (16:00)
[2020-03-19 16:37] LABS: Glucose,Whole Blood 193 mg/dL (75-99)
[2020-03-19] MEDS: metFORMIN 500 MG TAB PO SCH (17:47)
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
[2020-03-19] MEDS ORDERED: DOCUSATE 100 MG CAP PO PRN (20:11)
[2020-03-19] MEDS: SYMBICORT 160-4.5 MCG INHALER INHALATION SCH (20:49)
[2020-03-19 20:56] LABS: Glucose,Whole Blood 194 mg/dL (75-99)
[2020-03-19] MEDS ORDERED: CEFEPIME 2 GM in SODIUM CHLORIDE 0.9% 100 ML IVPB SCH (21:00)
[2020-03-19] MEDS: FUROSEMIDE 20 MG TAB PO SCH (21:52)
[2020-03-19] MEDS: LORATADINE 10 MG TAB PO SCH (21:52)
[2020-03-19] MEDS: ATORVASTATIN 40 MG TAB PO SCH (21:53)
[2020-03-19] MEDS: DICYCLOMINE 10 MG CAP PO SCH (21:53)
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
[2020-03-20] MEDS: SODIUM CHLORIDE 0.9% 1,000 ML IV SCH ×2 (02:08→21:30)
[2020-03-20] MEDS: MEROPENEM 1 GM in SODIUM CHLORIDE 0.9% 100 ML IVPB SCH ×2 (03:59→16:48)
[2020-03-20] MEDS: LEVOTHYROXINE 50 MCG TAB PO SCH (06:17)
[2020-03-20 06:21] LABS: Glucose,Whole Blood 175 mg/dL (75-99)
[2020-03-20] MEDS ORDERED: FLUTICASONE INHALATION SCH (08:00)
[2020-03-20] MEDS ORDERED: VILANTEROL INHALATION SCH (08:00)
[2020-03-20] MEDS: LINEZOLID 600 MG TAB PO SCH ×2 (08:04→21:30)
[2020-03-20] MEDS: MULTIVITAMINS, THERA 1 EACH TAB PO SCH (08:04)
[2020-03-20] MEDS: INSULIN ASPART (NovoLOG) 100 UNIT/ML VIAL SQ SCH ×4 (08:04→21:28)
[2020-03-20] MEDS: SERTRALINE 100 MG TAB PO SCH (08:04)
[2020-03-20] MEDS: metFORMIN 500 MG TAB PO SCH ×2 (08:04→18:02)
[2020-03-20] MEDS: PANTOPRAZOLE 40 MG TABLET PO SCH (08:04)
[2020-03-20] MEDS: DICYCLOMINE 10 MG CAP PO SCH ×2 (08:05→21:30)
[2020-03-20] MEDS: POTASSIUM CHLORIDE ER 10 MEQ TAB.ER.PRT PO SCH (08:05)
[2020-03-20] MEDS: FUROSEMIDE 20 MG TAB PO SCH ×2 (08:05→21:30)
[2020-03-20] MEDS: TOPIRAMATE 100 MG TAB PO SCH (08:05)
[2020-03-20] MEDS: SYMBICORT 160-4.5 MCG INHALER INHALATION SCH ×2 (08:22→20:33)
[2020-03-20] MEDS ORDERED: CEFEPIME 2 GM in SODIUM CHLORIDE 0.9% 100 ML IVPB SCH (09:00)
[2020-03-20 11:17] LABS: Glucose,Whole Blood 317 mg/dL (75-99)
--- NOTE | 2020-03-20 13:28 | CDI ---
Documentation Clarification Form Date: 03/20/2020 01:18:35 PM From: Urvashi Martinez CCS, CCDS Admit Date: 03/20/2020 08:22:00 AM Patient Name: Jose Forrester Visit Number: [id number] Discharge Date: ATTENTION: The Clinical Documentation Specialists (CDI) and [facility] Coding Staff appreciate your assistance in clarifying documentation. Please respond to the clarification below the line at the bottom and electronically sign. The CDI & [facility] Coding staff will review the response and follow-up if needed. Please note: Queries are made part of the Legal Health Record. If you have any questions, please contact the author of this message via ITS. Dr. Louis Pinto: Heart Failure without further specificity is documented in the patient's past medical history in the 03/18 ED note, the 03/19 Consults (Infectious Disease & Urology) and also in the History & Physical. History/Risk Factors: A Fib, Asthma, Prostate Cancer, Heart Failure, DM, DVT, Hypertension, Sleep Apnea, Dementia, Current Smoker. Clinical Indicators: Presented to the ED on 03/18 with weakness & SOB, admitted to Observation. Admitted as Inpatient on 03/20. Diagnosed with Weakness & UTI. Per the Urology Consult, possible catheter associated UTI, patient's indwelling catheter has been changed. VS 03/20: R 73, BP 103/54, PO 90 RA BNP: no done Echocardiogram Results 01/26/2020: Moderate LVH, Systolic normal w/EF 55-60%, Moderate aortic valve sclerosis, Trace Aortic regurgitation, Mild MR, Mild-mod TR, Mild-mod pulmonary hypertension. Chest X Ray 03/18: COPD. CT chest 03/18: Moderate emphysematous change with improvement in nodular consolidation right lower lung. Treatment: Home meds including Lasix po 20 mg daily. IV Rocephin for UTI. In your professional opinion, can you please clarify the acuity and type of CHF if known? Diastolic Heart Failure: Chronic Systolic & Diastolic Heart Failure: Chronic Unable to Determine Other, please specify (Last Revision: November 2017) MTDD
[2020-03-20 17:59] LABS: Glucose,Whole Blood 192 mg/dL (75-99)
[2020-03-20 20:48] LABS: Glucose,Whole Blood 167 mg/dL (75-99)
--- NOTE | 2020-03-20 20:56 | PN ---
PROGRESS NOTE DATE OF SERVICE: 03/20/2020 REASON FOR FOLLOWUP: Pneumonia and UTI with bacteremia. INTERVAL HISTORY: The patient is currently afebrile. Patient is breathing more comfortably. The patient does have a cough but not bringing up any sputum. No chest pain. No nausea, no vomiting. No abdominal pain or diarrhea. PHYSICAL EXAMINATION: Blood pressure is 109/54 with a pulse of 79, temperature 98.2. He is 90% on room air. General description: The patient is an elderly male up in the chair in no distress. Respiratory system: Unlabored breathing, decreased breath sounds in the base, with no wheeze. Heart S1, S2. Regular rate and rhythm. Abdomen soft, no tenderness. LABS: No new labs have been obtained today. Urine showing an E coli. Sputum not collected. DIAGNOSTIC IMPRESSION AND PLAN: 1. Patient with Gram-negative bacteremia, source likely urinary in this patient recently grew VRE Klebsiella with E coli, this time showing an E coli. However, we will wait for sensitivity. Keep the patient on meropenem until culture finalized. 2. Patient with recent MRSA pneumonia, sputum sensitivity did show resolving pneumonia, but not completely resolved. Currently on oral Zyvox to continue, obtain a sputum. Continue supportive care. MMODL / IJN: [id number] /
[2020-03-20] MEDS: LORATADINE 10 MG TAB PO SCH (21:30)
[2020-03-20] MEDS: ATORVASTATIN 40 MG TAB PO SCH (21:30)
[2020-03-21] MEDS: MEROPENEM 1 GM in SODIUM CHLORIDE 0.9% 100 ML IVPB SCH ×2 (04:55→15:34)
[2020-03-21] MEDS: LEVOTHYROXINE 50 MCG TAB PO SCH (06:12)
[2020-03-21 07:45] LABS: Glucose,Whole Blood 201 mg/dL (75-99)
[2020-03-21] MEDS: SYMBICORT 160-4.5 MCG INHALER INHALATION SCH ×2 (07:58→20:43)
[2020-03-21] MEDS: SERTRALINE 100 MG TAB PO SCH (09:17)
[2020-03-21] MEDS: LINEZOLID 600 MG TAB PO SCH ×2 (09:17→22:35)
[2020-03-21] MEDS: TOPIRAMATE 100 MG TAB PO SCH (09:17)
[2020-03-21] MEDS: POTASSIUM CHLORIDE ER 10 MEQ TAB.ER.PRT PO SCH (09:17)
[2020-03-21] MEDS: metFORMIN 500 MG TAB PO SCH ×2 (09:18→17:48)
[2020-03-21] MEDS: INSULIN ASPART (NovoLOG) 100 UNIT/ML VIAL SQ SCH ×5 (09:18→22:19)
[2020-03-21] MEDS: FUROSEMIDE 20 MG TAB PO SCH ×2 (09:18→22:35)
[2020-03-21] MEDS: PANTOPRAZOLE 40 MG TABLET PO SCH (09:18)
[2020-03-21] MEDS: DICYCLOMINE 10 MG CAP PO SCH ×2 (09:18→22:35)
[2020-03-21] MEDS: MULTIVITAMINS, THERA 1 EACH TAB PO SCH (09:19)
[2020-03-21 12:24] LABS: Glucose,Whole Blood 253 mg/dL (75-99)
[2020-03-21 17:11] LABS: Glucose,Whole Blood 220 mg/dL (75-99)
[2020-03-21] MEDS: SODIUM CHLORIDE 0.9% 1,000 ML IV SCH (17:49)
[2020-03-21 21:05] LABS: Glucose,Whole Blood 99 mg/dL (75-99)
[2020-03-21] MEDS: LORATADINE 10 MG TAB PO SCH (22:35)
[2020-03-21] MEDS: ATORVASTATIN 40 MG TAB PO SCH (22:35)
--- NOTE | 2020-03-21 23:07 | P.PN ---
Subjective Progress Note Date: 03/20/20 patient continues to improve his appetite is improved he denies any fever His blood was recultured and currently awaiting finalization Objective - Vital Signs Vital signs: Vital Signs Temp 97.6 F 03/20/20 08:13 Pulse 79 03/20/20 15:00 Resp 16 03/20/20 15:00 BP 109/54 03/20/20 07:51 Pulse Ox 90 L 03/20/20 07:51 Intake & Output 03/20/20 03/20/20 03/21/20 06:59 18:59 06:59 Intake Total 100 Balance 100 Intake: Intake, IV Titration 100 Amount Cefepime 2 gm In Sodium 100 Chloride 0.9% 100 ml @ 25 mls/hr IVPB Q12HR [facility] Rx #:[id number] Other: Voiding Method Indwelling Catheter # Voids 1 1 - Exam GENERAL: This is a -84 year-old in no apparent distress at the time of examination. Pleasant and cooperative but confused. HEENT: Head is atraumatic, normocephalic. Pupils are equal, round, and reactive to light. Sclerae anicteric. Conjunctivae are clear. Mucus membranes of the mout h are moist. Neck is supple. RESPIRATORY: Clear to auscultation. No wheezes, rales, or rhonchi. No use of accessory muscles. Patient maintaining oxygen saturation greater than 92%. No chest wall tenderness is noted on palpation or with deep breathing. CARDIOVASCULAR: IRegular rate and rhythm. S1 and S2 noted. No JVD noted. No S3 or S4 noted. GASTROINTESTINAL: suprapubic catheter No distention noted. Abdomen soft and round. Normal active bowel sounds auscultated x 4 quadrants. No pain or t enderness noted upon palpation. INTEGUMENTARY: No cyanosis. No jaundice. No rashes noted. No cellulitis noted. EXTREMITIES: 2+ peripheral pulses. No evidence of peripheral edema. No calf tenderness noted. NEUROLOGIC: Cranial nerves II-XII intact. PSYCHIATRIC: Awake, alert, and oriented x 1 - Labs CBC & Chem 7: 03/18/20 15:38 03/18/20 15:38 Labs: Abnormal Lab Results - Last 24 Hours (Table) 03/20/20 03/20/20 03/20/20 Range/Units 06:20 11:15 17:58 POC Glucose (mg/dL) 175 H 317 H 192 H (75-99) mg/dL 03/20/20 Range/Units 20:45 POC Glucose (mg/dL) 167 H (75-99) mg/dL Microbiology - Last 24 Hours (Table) 03/18/20 17:45 Urine Culture - Final Urine,Voided 03/18/20 16:05 Blood Culture Gram Stain - Preliminary Blood Blood Culture - Preliminary Escherichia coli Assessment and Plan (1) Generalized weakness Current Visit: Yes Status: Acute Code(s): R53.1 - WEAKNESS SNOMED Code(s): 78257787 (2) Urinary tract infection Current Visit: Yes Status: Acute Code(s): N39.0 - URINARY TRACT INFECTION, SITE NOT SPECIFIED SNOMED Code(s): 27783142 (3) Dehydration Current Visit: No Status: Acute Code(s): E86.0 - DEHYDRATION SNOMED Code(s): 85347086 Plan: continue IV antibiotics. Continue gentle hydration and we will ask physical th porsha to assess patient's gait.
--- NOTE | 2020-03-21 23:14 | P.PN ---
Subjective Progress Note Date: 03/21/20 patient was seen today still on IV antibiotics for urinary tract infection and pneumonia. Being followed by infectious disease and blood cultures are being. Patient states that he made trips to the on his own and did well and he has been working therapy. Objective - Vital Signs Vital signs: Vital Signs Temp 97.7 F 03/21/20 19:19 Pulse 69 03/21/20 19:19 Resp 20 03/21/20 19:19 BP 104/60 03/21/20 19:19 Pulse Ox 99 03/21/20 19:19 Intake & Output 03/21/20 03/21/20 03/22/20 06:59 18:59 06:59 Intake Total 260 240 Output Total 450 400 200 Balance -190 -160 -200 Intake: Intake, IV Titration 260 Amount Meropenem 1 gm In Sodium 100 Chloride 0.9% 100 ml @ 33 .3 mls/hr IVPB Q12H [facility] Rx#:[id number] Sodium Chloride 0.9% 1, 160 000 ml @ 20 mls/hr IV . Q24H [facility] Rx#:[id number] Oral 240 Output: Urine 450 400 200 Other: Voiding Method Indwelling Catheter Indwelling Catheter # Voids 1 # Bowel Movements 1 - Exam GENERAL: This is a -84 year-old in no apparent distress at the time of examination. Pleasant and cooperative but confused. HEENT: Head is atraumatic, normocephalic. Pupils are equal, round, and reactive to light. Sclerae anicteric. Conjunctivae are clear. Mucus membranes of the mouth are moist. Neck is supple. RESPIRATORY: Clear to auscultation. No wheezes, rales, or rhonchi. No use of accessory muscles. Patient maintaining oxygen saturation greater than 92%. No chest wall tenderness is noted on palpation or with deep breathing. CARDIOVASCULAR: IRegular rate and rhythm. S1 and S2 noted. No JVD noted. No S3 or S4 noted. GASTROINTESTINAL: suprapubic catheter No distention noted. Abdomen soft and round. Normal active bowel sounds auscultated x 4 quadrants. No pain or tenderness noted upon palpation. INTEGUMENTARY: No cyanosis. No jaundice. No rashes noted. No cellulitis noted. EXTREMITIES: 2+ peripheral pulses. No evidence of peripheral edema. No calf tenderness noted. NEUROLOGIC: Cranial nerves II-XII intact. PSYCHIATRIC: Awake, alert, and oriented x 1 - Labs CBC & Chem 7: 03/18/20 15:38 03/18/20 15:38 Labs: Abnormal Lab Results - Last 24 Hours (Table) 03/21/20 03/21/20 03/21/20 Range/Units 07:11 12:08 17:01 POC Glucose (mg/dL) 201 H 253 H 220 H (75-99) mg/dL Microbiology - Last 24 Hours (Table) 03/18/20 16:05 Blood Culture Gram Stain - Final Blood Blood Culture - Final Escherichia coli 03/18/20 17:45 Urine Culture - Final Urine,Voided Assessment and Plan (1) Generalized weakness Current Visit: Yes Status: Acute Code(s): R53.1 - WEAKNESS SNOMED Code(s): 76693620 (2) Urinary tract infection Current Visit: Yes Status: Acute Code(s): N39.0 - URINARY TRACT INFECTION, SITE NOT SPECIFIED SNOMED Code(s): 44654300 (3) Dehydration Current Visit: No Status: Acute Code(s): E86.0 - DEHYDRATION SNOMED Code(s): 59808175 (4) Gram-negative bacteremia Current Visit: Yes Status: Acute Code(s): R78.81 - BACTEREMIA SNOMED Code(s): 894855115580 (5) COPD exacerbation Current Visit: No Status: Acute Code(s): J44.1 - CHRONIC OBSTRUCTIVE PULMONARY DISEASE W (ACUTE) EXACERBATION SNOMED Code(s): 320408155 Plan: Patient we'll continue with IV antibiotics and hydration continue to monitor neuro status. await culture with final deciision for antibiotic. we could discharge as soon.
--- NOTE | 2020-03-21 23:55 | PN ---
PROGRESS NOTE DATE OF SERVICE: 03/21/2020 REASON FOR FOLLOWUP: Bacteremia and pneumonia. INTERVAL HISTORY: The patient is currently afebrile. The patient is breathing comfortably. The patient denies having any chest pain or shortness of breath. Minimal cough. No nausea, no vomiting. No abdominal pain or diarrhea. PHYSICAL EXAMINATION: Blood pressure 104/60 with a pulse of 69, temperature 97.7. He is 99% on room air. General description is an elderly male up in the bed in no distress. RESPIRATORY SYSTEM: Unlabored breathing with decreased breath sounds at the bases. No wheeze. HEART: S1, S2. Regular rate and rhythm. ABDOMEN: Soft, no tenderness. LABS: No new labs have been obtained today. E coli has been finalized to be sensitive pathogen. DIAGNOSTIC IMPRESSION AND PLAN: 1. Patient with Escherichia coli bacteremia secondary to possible urinary source as the patient did have significant positive and did have suprapubic catheter likely the source. We will obtain ultrasound of the kidneys to make sure no evidence of any obstructive uropathy. Antibiotic was adjusted to Rocephin 2 grams daily. Finish therapy with oral antibiotic. 2. Patient with recent pneumonia with some changes on CT. Chest x-ray will be repeated. Continue with Zyvox and continue with supportive care. MMODL / IJN: [id number] /
[2020-03-22] MEDS: MEROPENEM 1 GM in SODIUM CHLORIDE 0.9% 100 ML IVPB SCH (04:58)
[2020-03-22] MEDS: LEVOTHYROXINE 50 MCG TAB PO SCH (04:58)
[2020-03-22 07:04] LABS: Glucose,Whole Blood 196 mg/dL (75-99)
[2020-03-22] MEDS: INSULIN ASPART (NovoLOG) 100 UNIT/ML VIAL SQ SCH ×4 (08:47→21:42)
[2020-03-22] MEDS: SYMBICORT 160-4.5 MCG INHALER INHALATION SCH ×2 (08:47→20:13)
[2020-03-22] MEDS: DICYCLOMINE 10 MG CAP PO SCH ×2 (08:48→22:41)
[2020-03-22] MEDS: POTASSIUM CHLORIDE ER 10 MEQ TAB.ER.PRT PO SCH (08:48)
[2020-03-22] MEDS: FUROSEMIDE 20 MG TAB PO SCH ×2 (08:48→22:41)
[2020-03-22] MEDS: SERTRALINE 100 MG TAB PO SCH (08:49)
[2020-03-22] MEDS: MULTIVITAMINS, THERA 1 EACH TAB PO SCH (08:49)
[2020-03-22] MEDS: PANTOPRAZOLE 40 MG TABLET PO SCH (08:49)
[2020-03-22] MEDS: TOPIRAMATE 100 MG TAB PO SCH (08:49)
[2020-03-22] MEDS: metFORMIN 500 MG TAB PO SCH ×2 (08:49→17:32)
[2020-03-22] MEDS: LINEZOLID 600 MG TAB PO SCH ×2 (08:49→22:43)
[2020-03-22 11:39] LABS: Glucose,Whole Blood 309 mg/dL (75-99)
--- NOTE | 2020-03-22 11:52 | US ---
EXAMINATION TYPE: US kidneys/renal and bladder DATE OF EXAM: 03/22/2020 COMPARISON: NONE CLINICAL HISTORY: UTI/Bacteremia. UTI Some limitations patient unable to roll. EXAM MEASUREMENTS: Right Kidney: 9.9 x 4.5 x 4.9 cm Left Kidney: 10.3 x 5.3 x 4.4 cm Right Kidney: No hydronephrosis or masses seen Left Kidney: No hydronephrosis or masses seen Bladder: Nondiagnostic Bilateral Jets seen: No There is no evidence for hydronephrosis at this point in time. No nephrolithiasis is seen. No fernanda s are identified. IMPRESSION: No hydronephrosis or nephrolithiasis
--- NOTE | 2020-03-22 12:01 | XR ---
EXAMINATION TYPE: XR chest 2V DATE OF EXAM: 03/22/2020 COMPARISON: 03/18/2020 TECHNIQUE: PA and lateral views submitted. HISTORY: Cough possible pneumonia FINDINGS: The lungs are clear and there is no pneumothorax, pleural effusion, or focal pneumonia. Hyperinflat ion suggests COPD. Left perihilar consolidation or mass. No overt failure. Atherosclerotic change of the aorta. Heart size normal. IMPRESSION: 1. COPD with left perihilar consolidation or mass is stable from prior exam. Vague area of attenuatio n in the right midlung less well-seen on today's exam..
[2020-03-22 16:47] LABS: Glucose,Whole Blood 192 mg/dL (75-99)
--- NOTE | 2020-03-22 17:11 | PN ---
PROGRESS NOTE DATE OF SERVICE: 03/22/2020 REASON FOR FOLLOWUP: E coli bacteremia and pneumonia. INTERVAL HISTORY: The patient is currently afebrile. Patient is breathing more comfortably, currently on room air. The patient denies having any chest pain, no shortness of breath. Minimal cough. No nausea, no vomiting. No abdominal pain, no diarrhea. PHYSICAL EXAMINATION: Blood pressure 113/56, pulse of 81, temperature is 97.2. He is 99% on room air. General description is an elderly male, up in the chair in no distress. RESPIRATORY SYSTEM: Unlabored breathing, decreased breath sounds, no wheeze. HEART: S1, S2. Regular rate and rhythm. ABDOMEN: Soft, no tenderness. LABS: No new labs have been obtained today. Ultrasound was negative for any hydronephrosis. Chest x-ray still showing right middle lobe pneumonia. Sputum is currently pending. DIAGNOSTIC IMPRESSION AND PLAN: Patient with an E coli bacteremia. Source is likely urinary. As the patient did have significantly positive UA and did have of the catheter. The patient is currently on Rocephin 2 grams daily. The patient also have a component of pneumonia. Previous culture positive for MRSA, culture since admission currently pending. Will wait for the culture to finalize. Continue with Zyvox and Rocephin. Repeat blood cultures tomorrow. Continue supportive care. MMODL / IJN: [id number] /
[2020-03-22] MEDS: SODIUM CHLORIDE 0.9% 1,000 ML IV SCH (20:25)
[2020-03-22 21:29] LABS: Glucose,Whole Blood 101 mg/dL (75-99)
[2020-03-22] MEDS: LORATADINE 10 MG TAB PO SCH (22:41)
[2020-03-22] MEDS: ATORVASTATIN 40 MG TAB PO SCH (22:41)
[2020-03-23] MEDS: LEVOTHYROXINE 50 MCG TAB PO SCH (05:59)
[2020-03-23 07:26] LABS: Glucose,Whole Blood 180 mg/dL (75-99)
[2020-03-23] MEDS: SYMBICORT 160-4.5 MCG INHALER INHALATION SCH ×2 (08:33→19:08)
[2020-03-23 09:21] LABS: Basophils % (A) 0 %; Eosinophils # (A) 0.3 k/uL (0-0.7); Eosinophils % (A) 3 %; HGB 10.4 gm/dL (13.0-17.5); Hypochromasia Moderate; Lymphocytes # (A) 1.4 k/uL (1.0-4.8); Lymphocytes % (A) 14 %; MCH 28.8 pg (25.0-35.0); MCHC 30.7 g/dL (31.0-37.0); MCV 93.8 fL (80.0-100.0); Mean Platelet Volume 7.4; Monocytes # (A) 0.4 k/uL (0-1.0); Monocytes % (A) 4 %; Neutrophils % (A) 77 %; Platelet Count 299 k/uL (150-450); RBC 3.63 m/uL (4.30-5.90); RDW 15.2 % (11.5-15.5); WBC 10.3 k/uL (3.8-10.6)
[2020-03-23 09:36] LABS: African American GFR (CKD) >90 (>60 ml/min/1.73 sqM); Anion Gap 6 mmol/L; Blood Urea Nitrogen 18 mg/dL (9-20); C Reactive Protein 57.2 mg/L (<10.0); Calcium 9.7 mg/dL (8.4-10.2); Carbon Dioxide 23 mmol/L (22-30); Chloride 113 mmol/L (98-107); Glucose 234 mg/dL (74-99); Non-African American GFR(CKD) 82 (>60 ml/min/1.73 sqM); Potassium 3.6 mmol/L (3.5-5.1); Sodium 142 mmol/L (137-145)
[2020-03-23] MEDS: POTASSIUM CHLORIDE ER 10 MEQ TAB.ER.PRT PO SCH (09:54)
[2020-03-23] MEDS: metFORMIN 500 MG TAB PO SCH ×2 (09:54→17:53)
[2020-03-23] MEDS: TOPIRAMATE 100 MG TAB PO SCH (09:54)
[2020-03-23] MEDS: FUROSEMIDE 20 MG TAB PO SCH ×2 (09:54→20:41)
[2020-03-23] MEDS: MULTIVITAMINS, THERA 1 EACH TAB PO SCH (09:54)
[2020-03-23] MEDS: SERTRALINE 100 MG TAB PO SCH (09:54)
[2020-03-23] MEDS: INSULIN ASPART (NovoLOG) 100 UNIT/ML VIAL SQ SCH ×4 (09:55→20:41)
[2020-03-23] MEDS: LINEZOLID 600 MG TAB PO SCH (09:55)
[2020-03-23] MEDS: PANTOPRAZOLE 40 MG TABLET PO SCH (09:55)
[2020-03-23] MEDS: DICYCLOMINE 10 MG CAP PO SCH ×2 (09:55→20:41)
[2020-03-23 12:05] LABS: Glucose,Whole Blood 195 mg/dL (75-99)
[2020-03-23] MEDS: IOPAMIDOL CONTRAST (ORAL USE) VIAL PO PRN ×2 (15:24→16:19)
[2020-03-23 17:11] LABS: Glucose,Whole Blood 149 mg/dL (75-99)
--- NOTE | 2020-03-23 17:46 | PN ---
PROGRESS NOTE DATE OF SERVICE: 03/23/2020 I am covering for Dr. Pinto. This 84-year-old gentleman who was admitted with generalized weakness and possible UTI with possibility of pneumonia is also being considered. The most recent chest x-ray which is being reviewed personally by me showed bilateral lesions. An abdominal bladder ultrasound was also done which showed no hydronephrosis. The patient continues to be confused. Patient is being closely monitored. Patient has empiric antibiotics in the form of Rocephin. No chest pain. No palpitations. PAST MEDICAL HISTORY AND REVIEW OF SYSTEMS: Could not be taken as the patient is currently mildly confused. CURRENT MEDICATIONS: 1. Tylenol 650 q.6 p.r.n. 2. Xanax 0.25 b.i.d. 3. Lipitor. 4. Symbicort b.i.d. 5. Rocephin 1 g daily. 6. Bentyl. 7. Colace. 8. Lasix. 9. Neurontin. 10.Synthroid. 11.Zyvox. 12.Claritin. 13.Glucophage. 14.Multivitamins. 15.Narcan. 16.Protonix. 17.K-Dur. 18.Requip. 19.Zoloft. 20.Topamax. PHYSICAL EXAM: Patient is alert, oriented x2. Pulse 74, blood pressure 130/52, respiration 20, temperature 98.1, pulse ox 97% on room air HEENT: Conjunctivae normal. Oral mucosa moist. NECK: No jugular venous distention. No lymph node enlargement. CARDIOVASCULAR: S1, S2, muffled. No S3, no S4, RESPIRATORY: Diminished breath sounds at the bases. A few scattered rhonchi and crackles. ABDOMEN: Soft, nontender. LEGS: No edema, no swelling. NERVOUS SYSTEM: No focal motor or sensory deficits. LAB STUDIES: WBC 10.2, hemoglobin 10.4, sodium 142, potassium 3.2, glucose 234. C-reactive protein is 57.2, normal is less than 10. Sputum culture showed Sonia albicans. Blood culture showed E coli. ASSESSMENT: 1. Generalized weakness with possible E coli sepsis. 2. Sonia albicans from the sputum. 3. Acute urinary tract infection present on admission. 4. Dehydration. 5. Change in mental status, metabolic encephalopathy, acute on chronic, multifactorial. 6. Chronic obstructive pulmonary disease acute exacerbation. 7. Anemia, normocytic anemia of chronic disease. 8. Elevated C-reactive protein. 9. History of atrial fibrillation. 10.History of asthma. 11.History of congestive heart failure. 12.History of chronic obstructive pulmonary disease. 13.History of dementia. 14.History of deep venous thrombosis. 15.History of gastroesophageal reflux disease. 16.History of sleep apnea. 17.History of chronic Kwan catheter and suprapubic catheter. 18.History of recurrent urinary tract infections. 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 20.History of prostate surgery. 21.History of tonsillectomy. 22.History of depression. 23.FULL CODE. 24.Mild protein-calorie malnutrition. RECOMMENDATIONS AND DISCUSSION: In this 84-year-old gentleman who presented with multiple complex medical issues, we will monitor the patient closely, continue the current management and symptomatic treatment. Otherwise, continue the antibiotics. The patient is on a combination of Unasyn and Rocephin at this time. Infectious Disease following the patient. As mentioned, cultures are noted. The most recent blood cultures are not available. We will repeat blood culture and continue to monitor. The prognosis is guarded. Further recommendations to follow. Please see orders for details. MMODL / IJN: [id number] /
[2020-03-23] MEDS: AMPICILLIN-SULBACTAM 3 GM in SODIUM CHLORIDE 0.9% 100 ML IVPB SCH ×2 (17:53→23:23)
[2020-03-23] MEDS: SODIUM CHLORIDE 0.9% 1,000 ML IV SCH (17:54)
--- NOTE | 2020-03-23 18:55 | CT ---
EXAMINATION TYPE: CT abdomen pelvis wo con DATE OF EXAM: 03/23/2020 COMPARISON: None HISTORY: bacteremia CT DLP: 475.6 mGycm Automated exposure control for dose reduction was used. Images were obtained from the diaphragm to the floor the pelvis with oral contrast only. There are bilateral pleural effusions. There is some infiltrate and atelectasis at both posterior randa g bases. Stomach is intact. Liver shows no focal defect. Gallbladder appears normal. The bile ducts are not di lated. Spleen is intact. Pancreas is intact. There is some mild fluid in the left anterior pararenal space. There is no adrenal mass. Kidneys have normal size. There are small bilateral renal calculi that margareth ure up to 2 mm. The ureters are not dilated. There is no hydronephrosis. There is no retroperitoneal adenopathy. There is atherosclerotic vascular calcification. There is Kwan suprapubic catheter in th e urinary bladder. Bladder is empty. There are numerous surgical clips in the pelvis. There is no lizeth dence of a bowel obstruction. There is normal contrast opacification of the small bowel. Appendix is not definitely seen. There is no sign of thickened appendix. There is small amount of fluid in the pa racolic gutters bilaterally. There is no inguinal hernia. Lumbar vertebra have normal alignment. There is mild biconcave change of L3 vertebral body with 20% l oss of height. There is 20% wedging of L1 vertebra. The bony pelvis appears intact. IMPRESSION: Mild free fluid in the paracolic gutters and in the presacral space. Minimal fluid in the left anteri or pararenal space. Pelvic surgery. No evidence of renal obstruction. Nonobstructing renal calculi. Basilar pulmonary infiltrates and atelectasis with pleural effusion.
[2020-03-23 20:26] LABS: Glucose,Whole Blood 191 mg/dL (75-99)
[2020-03-23] MEDS: ATORVASTATIN 40 MG TAB PO SCH (20:41)
[2020-03-23] MEDS: LORATADINE 10 MG TAB PO SCH (20:41)
--- NOTE | 2020-03-23 23:22 | PN ---
PROGRESS NOTE DATE OF SERVICE: 03/23/2020 REASON FOR FOLLOWUP: E coli bacteremia and pneumonia. INTERVAL HISTORY: Patient is currently afebrile. The patient has been breathing comfortably. Denies having any chest pain or shortness of breath. Some cough. No nausea, no vomiting. No abdominal pain. No diarrhea. PHYSICAL EXAMINATION: Blood pressure 113/63 with a pulse of 75. Temperature 97.5. He is 97% on room air. General description: The patient is an elderly male lying in bed in no distress. Respiratory system: Unlabored breathing, clear to auscultation anteriorly. Heart S1, S2. Regular rate and rhythm. Abdomen soft, no tenderness. LABS: White count normal at 10.3, BUN of 18, creatinine 0.81. Blood cultures with E coli. Urine is negative. Sputum with Sonia albicans. DIAGNOSTIC IMPRESSION AND PLAN: Patient with an E coli bacteremia. Initial concern for urinary source as the patient did have a suprapubic catheter. Did have positive UA however, urine culture came back negative. The patient did have a right midline pneumonia with concern for possible aspiration and abdominal source for this bacteremia. A CT of abdomen and pelvis was done which scan do not show any inflammation. Antibiotic has been switched over to Unasyn. Zyvox, Rocephin discontinued. The patient continues to improve to finish therapy with oral Augmentin and close outpatient followup. MMODL / IJN: [id number] /
[2020-03-24] MEDS: AMPICILLIN-SULBACTAM 3 GM in SODIUM CHLORIDE 0.9% 100 ML IVPB SCH ×3 (06:00→17:56)
[2020-03-24] MEDS: LEVOTHYROXINE 50 MCG TAB PO SCH (06:00)
[2020-03-24] MEDS: DICYCLOMINE 10 MG CAP PO SCH ×2 (07:29→21:43)
[2020-03-24] MEDS: TOPIRAMATE 100 MG TAB PO SCH (07:29)
[2020-03-24] MEDS: MULTIVITAMINS, THERA 1 EACH TAB PO SCH (07:29)
[2020-03-24] MEDS: PANTOPRAZOLE 40 MG TABLET PO SCH (07:29)
[2020-03-24] MEDS: POTASSIUM CHLORIDE ER 10 MEQ TAB.ER.PRT PO SCH (07:29)
[2020-03-24] MEDS: SERTRALINE 100 MG TAB PO SCH (07:29)
[2020-03-24] MEDS: FUROSEMIDE 20 MG TAB PO SCH ×2 (07:29→21:45)
[2020-03-24] MEDS: metFORMIN 500 MG TAB PO SCH ×2 (07:29→17:56)
[2020-03-24 07:45] LABS: Glucose,Whole Blood 152 mg/dL (75-99)
[2020-03-24] MEDS: INSULIN ASPART (NovoLOG) 100 UNIT/ML VIAL SQ SCH ×3 (07:46→17:56)
[2020-03-24 08:00] LABS: Basophils % (A) 0 %; Eosinophils # (A) 0.4 k/uL (0-0.7); Eosinophils % (A) 4 %; HCT 32.5 % (39.0-53.0); HGB 10.5 gm/dL (13.0-17.5); Hypochromasia Slight; Lymphocytes # (A) 1.5 k/uL (1.0-4.8); Lymphocytes % (A) 16 %; MCH 29.9 pg (25.0-35.0); MCHC 32.5 g/dL (31.0-37.0); Monocytes # (A) 0.5 k/uL (0-1.0); Monocytes % (A) 5 %; Neutrophils # (A) 7.3 k/uL (1.3-7.7); Neutrophils % (A) 74 %; Platelet Count 375 k/uL (150-450); RBC 3.53 m/uL (4.30-5.90); RDW 15.4 % (11.5-15.5); WBC 9.8 k/uL (3.8-10.6)
[2020-03-24 08:10] LABS: African American GFR (CKD) >90 (>60 ml/min/1.73 sqM); Anion Gap 6 mmol/L; Blood Urea Nitrogen 13 mg/dL (9-20); Calcium 9.1 mg/dL (8.4-10.2); Carbon Dioxide 21 mmol/L (22-30); Chloride 115 mmol/L (98-107); Glucose 135 mg/dL (74-99); Non-African American GFR(CKD) 89 (>60 ml/min/1.73 sqM); Potassium 3.4 mmol/L (3.5-5.1); Sodium 142 mmol/L (137-145)
[2020-03-24] MEDS: SYMBICORT 160-4.5 MCG INHALER INHALATION SCH ×2 (08:13→20:39)
[2020-03-24 12:09] LABS: Glucose,Whole Blood 144 mg/dL (75-99)
[2020-03-24] MEDS ORDERED: Magnesium Replacement Protocol 1 EACH MISC MISCELLANE PRN (17:19)
[2020-03-24] MEDS ORDERED: Potassium Replacement Protocol 1 EACH MISC MISCELLANE PRN (17:19)
[2020-03-24 17:37] LABS: Glucose,Whole Blood 184 mg/dL (75-99)
[2020-03-24 20:23] LABS: Glucose,Whole Blood 135 mg/dL (75-99)
[2020-03-24] MEDS: LORATADINE 10 MG TAB PO SCH (21:43)
[2020-03-24] MEDS: ATORVASTATIN 40 MG TAB PO SCH (21:44)
--- NOTE | 2020-03-25 00:07 | PN ---
PROGRESS NOTE DATE OF SERVICE: 03/24/2020 REASON FOR FOLLOWUP: E coli bacteremia and pneumonia. INTERVAL HISTORY: The patient is currently afebrile, has been breathing comfortably. Denies having any chest pain. He did have occasional cough. No sputum. No nausea, no vomiting. No abdominal pain, no diarrhea. PHYSICAL EXAMINATION: Blood pressure 131/63 with a pulse of 77, temperature 98.2. He is 96% on room air. General description is an elderly male lying in bed in no distress. RESPIRATORY SYSTEM: Unlabored breathing, decreased breath sounds at bases. No wheeze. HEART S1, S2. Regular rate and rhythm. ABDOMEN: Soft, no tenderness. LABS: Hemoglobin is 10.5, white count 9.8, BUN of 13, creatinine 0.66. Blood culture repeat has been negative. CT abdomen and pelvis did not show any significant inflammatory changes. DIAGNOSTIC IMPRESSION AND PLAN: Patient with right lobe pneumonia with an Escherichia coli bacteremia, possible urinary tract infection. The patient is currently covered with Unasyn to finish therapy with oral Augmentin 875 b.i.d. for another 7-10 days and close outpatient followup. MMODL / IJN: [id number] /
--- NOTE | 2020-03-25 00:46 | PN ---
PROGRESS NOTE DATE OF SERVICE: 03/24/2020 I am covering for Dr. Pinto. This 84-year-old gentleman was admitted with generalized weakness and UTI also had suspected pneumonia. The patient also had E coli sepsis and multiple organisms such as Sonia grown from the sputum also. Most recent cultures include cultures negative at this time. The patient is complaining of some tiredness, weakness. Abdomen and pelvis CAT scan was also done which showed Dr. Smith is following the patient closely. Repeat CAT scan showed some mild free fluid in the paracolic gutters in the presacral space. Basilar pulmonary infiltrates also noted. No chest pain. No palpitations. PAST MEDICAL HISTORY: Reviewed. REVIEW OF SYSTEMS: CARDIOVASCULAR SYSTEM: No angina. RESPIRATORY SYSTEM: As mentioned earlier. GI: No nausea or vomiting. : No dysuria. NERVOUS SYSTEM: No numbness or weakness. CURRENT MEDICATIONS: Current medications are reviewed and include: 1. Tylenol. 2. Xanax. 3. Unasyn. 4. Lipitor. 5. Symbicort. 6. Bentyl. 7. Colace. 8. Lasix. 9. Neurontin. 10.NovoLog. 11.Synthroid. 12.Claritin. 13.Glucophage. 14.Multivitamin. 15.Narcan. 16.Protonix. 17.K-Dur. 18.Requip. 19.Zoloft. 20.Topamax. Doses are reviewed. PHYSICAL EXAMINATION: The patient is alert and oriented x3. Pulse 77, blood pressure 131/63, respiration 20, temperature 98.2, pulse ox 96% on room air. HEENT: Conjunctivae normal. NECK: No jugular venous distention. CARDIOVASCULAR: S1, S2 muffled. RESPIRATORY; Breath sounds diminished at the bases. A few rhonchi, no crackles. ABDOMEN: Soft, nontender. LEGS: No edema. No swelling. NERVOUS SYSTEM: No focal deficits. LABS: WBC 9.8, hemoglobin 10.5, potassium 3.4. ASSESSMENT: 1. Generalized weakness with possibly Escherichia coli sepsis present on admission. 2. Sonia albicans in the sputum. 3. Acute urinary tract infection, present on admission. 4. Hypokalemia. 5. Dehydration with change in mental status, metabolic encephalopathy, acute on chronic multifactorial. 6. Chronic obstructive pulmonary disease acute exacerbation. 7. Anemia, normocytic anemia of chronic disease. 8. Elevated CRP. 9. History of atrial fibrillation. 10.History of asthma. 11.History of congestive heart failure. 12.History of chronic obstructive pulmonary disease. 13.History of dementia. 14.History of deep vein thrombosis. 15.History of gastroesophageal reflux disease. 16.History of sleep apnea. 17.History of chronic Kwan catheter and suprapubic catheter. 18.History of recurrent urinary tract infections. 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 20.History of prostate surgery. 21.History of tonsillectomy. 22.History of depression. 23.Mild protein-calorie malnutrition. 24.FULL CODE. RECOMMENDATIONS AND DISCUSSION: Recommend to continue current medications and symptomatic treatment. The CT scan is reviewed personally. Otherwise continue to monitor potassium on replacement protocol. The patient is currently on Unasyn as suggested by Dr. Smith. We will continue to monitor. Dr. Pinto will follow. MMANNL / MARTINN: [id number] / MTDD
[2020-03-25] MEDS: INSULIN ASPART (NovoLOG) 100 UNIT/ML VIAL SQ SCH ×3 (03:18→13:01)
[2020-03-25] MEDS: SODIUM CHLORIDE 0.9% 1,000 ML IV SCH (03:18)
[2020-03-25] MEDS: LEVOTHYROXINE 50 MCG TAB PO SCH (06:08)
[2020-03-25 07:38] LABS: Glucose,Whole Blood 181 mg/dL (75-99)
[2020-03-25 08:00] VITALS: BP 122/60; PULSE 60; RESP 20; TEMP 98.6
[2020-03-25] MEDS: SYMBICORT 160-4.5 MCG INHALER INHALATION SCH (09:12)
--- NOTE | 2020-03-25 09:39 | CDI ---
Documentation Clarification Form Date: 03/20/2020 01:18:00 PM From: Urvashi Martinez CCS, CCDS Admit Date: 03/20/2020 08:22:00 AM Patient Name: Jose Forrester Visit Number: [id number] Discharge Date: ATTENTION: The Clinical Documentation Specialists (CDI) and [facility] Coding Staff appreciate your assistance in clarifying documentation. Please respond to the clarification below the line at the bottom and electronically sign. The CDI & [facility] Coding staff will review the response and follow-up if needed. Please note: Queries are made part of the Legal Health Record. If you have any questions, please contact the author of this message via ITS. Dr. Louis Pinto: Heart Failure without further specificity is documented in the patient's past medical history in the 03/18 ED note, the 03/19 Consults (Infectious Disease & Urology) and also in the History & Physical. History/Risk Factors: A Fib, Asthma, Prostate Cancer, Heart Failure, DM, DVT, Hypertension, Sleep Apnea, Dementia, Current Smoker. Clinical Indicators: Presented to the ED on 03/18 with weakness & SOB, admitted to Observation. Admitted as Inpatient on 03/20. Diagnosed with Weakness & UTI. Per the Urology Consult, possible catheter associated UTI, patient's indwelling catheter has been changed. VS 03/20: R 73, BP 103/54, PO 90 RA BNP: no done Echocardiogram Results 01/26/2020: Moderate LVH, Systolic normal w/EF 55-60%, Moderate aortic valve sclerosis, Trace Aortic regurgitation, Mild MR, Mild-mod TR, Mild-mod pulmonary hypertension. Chest X Ray 03/18: COPD. CT chest 03/18: Moderate emphysematous change with improvement in nodular consolidation right lower lung. Treatment: Home meds including Lasix po 20 mg daily. IV Rocephin for UTI. In your professional opinion, can you please clarify the acuity and type of CHF if known? Diastolic Heart Failure: o Chronic Systolic & Diastolic Heart Failure: o Chronic Unable to Determine Other, please specify (Last Revision: November 2017) MTDD
[2020-03-25] MEDS: AMPICILLIN-SULBACTAM 3 GM in SODIUM CHLORIDE 0.9% 100 ML IVPB SCH ×4 (09:44→13:01)
[2020-03-25] MEDS: metFORMIN 500 MG TAB PO SCH (09:46)
[2020-03-25] MEDS: TOPIRAMATE 100 MG TAB PO SCH (09:47)
[2020-03-25] MEDS: POTASSIUM CHLORIDE ER 10 MEQ TAB.ER.PRT PO SCH (09:47)
[2020-03-25] MEDS: MULTIVITAMINS, THERA 1 EACH TAB PO SCH (09:47)
[2020-03-25] MEDS: SERTRALINE 100 MG TAB PO SCH (09:47)
[2020-03-25] MEDS: DICYCLOMINE 10 MG CAP PO SCH (09:47)
[2020-03-25] MEDS: PANTOPRAZOLE 40 MG TABLET PO SCH (09:47)
[2020-03-25] MEDS: FUROSEMIDE 20 MG TAB PO SCH (09:47)
[2020-03-25 09:53] LABS: Basophils % (A) 0 %; Eosinophils # (A) 0.3 k/uL (0-0.7); Eosinophils % (A) 3 %; HCT 34.4 % (39.0-53.0); HGB 10.6 gm/dL (13.0-17.5); Hypochromasia Moderate; Lymphocytes # (A) 1.4 k/uL (1.0-4.8); Lymphocytes % (A) 17 %; MCH 28.8 pg (25.0-35.0); MCHC 30.9 g/dL (31.0-37.0); MCV 93.2 fL (80.0-100.0); Mean Platelet Volume 6.9; Monocytes # (A) 0.4 k/uL (0-1.0); Monocytes % (A) 4 %; Neutrophils # (A) 6.3 k/uL (1.3-7.7); Neutrophils % (A) 75 %; Platelet Count 348 k/uL (150-450); RBC 3.69 m/uL (4.30-5.90); RDW 15.3 % (11.5-15.5); WBC 8.5 k/uL (3.8-10.6)
[2020-03-25 10:08] LABS: African American GFR (CKD) >90 (>60 ml/min/1.73 sqM); Anion Gap 5 mmol/L; Blood Urea Nitrogen 13 mg/dL (9-20); Calcium 9.5 mg/dL (8.4-10.2); Carbon Dioxide 25 mmol/L (22-30); Chloride 111 mmol/L (98-107); Glucose 191 mg/dL (74-99); Magnesium 1.7 mg/dL (1.6-2.3); Non-African American GFR(CKD) 88 (>60 ml/min/1.73 sqM); Sodium 141 mmol/L (137-145)
[2020-03-25 12:06] LABS: Glucose,Whole Blood 181 mg/dL (75-99)
--- NOTE | 2020-03-25 13:40 | PN ---
PROGRESS NOTE DATE OF SERVICE: 03/25/2020 REASON FOR FOLLOWUP: E coli bacteremia and possible aspiration pneumonia. INTERVAL HISTORY: Patient is currently afebrile. The patient is breathing comfortably on room air. The patient denies having any chest pain or cough. No nausea, no vomiting, no abdominal pain, no diarrhea. PHYSICAL EXAMINATION: Blood pressure 122/60 with a pulse of 60, temperature 98.6, 97% on room air. General description is an elderly male lying in bed in no distress. Respiratory system: Unlabored breathing, clear to auscultation anteriorly. Heart S1, S2. Regular rate and rhythm. Abdomen is soft, no tenderness. LABS: Hemoglobin is 10.1, white count of 8.5, BUN of 13, creatinine 0.65. Blood culture repeat has been negative so far. IMPRESSION/PLAN: Patient with E coli bacteremia, possible urinary source plus/minus component of aspiration pneumonitis. Plan is to finish therapy with oral Augmentin. Prescription sent to pharmacy and close outpatient followup. MMODL / IJN: [id number] /
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
== END 2020-03-25 14:10 | disposition home health service (06) | DRG 871 ==
LOC: EC 14:37 → 1SOBS 18:42 → OBSVTOIN 03-20 08:22 → 4SSUR 03-20 15:03
PROVIDERS: ADMIT Family Medicine; ATTEND Family Medicine
DX: A41.51 Sepsis due to Escherichia coli [E. coli] (principal); J69.0 Pneumonitis due to inhalation of food and vomit; G93.41 Metabolic encephalopathy; N39.0 Urinary tract infection, site not specified; E44.1 Mild protein-calorie malnutrition; I50.32 Chronic diastolic (congestive) heart failure; I48.20 Chronic atrial fibrillation, unspecified; E78.5 Hyperlipidemia, unspecified; I27.20 Pulmonary hypertension, unspecified; G47.33 Obstructive sleep apnea (adult) (pediatric); E86.0 Dehydration; F03.90 Unspecified dementia, unspecified severity, without behavioral disturbance, psychotic disturbance, mood disturbance, and anxiety; F17.200 Nicotine dependence, unspecified, uncomplicated; F32.9 Major depressive disorder, single episode, unspecified; Z79.4 Long term (current) use of insulin; K21.9 Gastro-esophageal reflux disease without esophagitis; J43.9 Emphysema, unspecified; E11.42 Type 2 diabetes mellitus with diabetic polyneuropathy; E87.6 Hypokalemia; Z20.828 Contact with and (suspected) exposure to other viral communicable diseases; I11.0 Hypertensive heart disease with heart failure; D63.8 Anemia in other chronic diseases classified elsewhere; M19.90 Unspecified osteoarthritis, unspecified site; I07.1 Rheumatic tricuspid insufficiency; I35.8 Other nonrheumatic aortic valve disorders; M85.80 Other specified disorders of bone density and structure, unspecified site; Z90.81 Acquired absence of spleen; Z79.899 Other long term (current) drug therapy; Z79.890 Hormone replacement therapy; Z79.51 Long term (current) use of inhaled steroids; Z91.09 Other allergy status, other than to drugs and biological substances; Z86.718 Personal history of other venous thrombosis and embolism; Z86.14 Personal history of Methicillin resistant Staphylococcus aureus infection; Z85.46 Personal history of malignant neoplasm of prostate; Z80.42 Family history of malignant neoplasm of prostate; Z80.0 Family history of malignant neoplasm of digestive organs; Z86.73 Personal history of transient ischemic attack (TIA), and cerebral infarction without residual deficits; Z87.01 Personal history of pneumonia (recurrent); Z87.440 Personal history of urinary (tract) infections; Z90.89 Acquired absence of other organs; Z90.49 Acquired absence of other specified parts of digestive tract; Z90.79 Acquired absence of other genital organ(s); Z98.42 Cataract extraction status, left eye; Z98.41 Cataract extraction status, right eye; Z98.890 Other specified postprocedural states; Z91.19 Patient's noncompliance with other medical treatment and regimen; Z92.3 Personal history of irradiation
CPT/HCPCS: 36415; 71045; 71046; 71260; 74176; 76770; 80048; 80053; 81001; 82248; 83605; 83735; 85025; 85610; 85730; 86140; 87040; 87070; 87077; 87086; 87186; 87205; 87324; 93005; 94640; 96374; 99285

== ENCOUNTER → 2020-05-24 | Outpatient (CLI) | payer MEDICARE | END | disposition home or self-care (01) | LOC: LABWHC1 11:33 | PROVIDERS: ATTEND Family Medicine | DX: Z03.818 Encounter for observation for suspected exposure to other biological agents ruled out (principal); R43.9 Unspecified disturbances of smell and taste | CPT/HCPCS: U0003; C9803 ==